=== PATIENT | female | born 1940 | race Caucasian/White ===

== ENCOUNTER 2017-11-29 06:30 | Emergency (ER) | payer OTHER ==
[2017-11-29 07:03] VITALS: BP 168/65; PULSE 75; TEMP 97.5; BMI 19.8
--- NOTE | 2017-11-29 07:10 | PDOC ---
History of Present Illness - General Chief Complaint: Bleeding from Anus Stated Complaint: RECTAL BLEEDING Time Seen by Provider: 11/29/17 07:04 - History of Present Illness Initial Comments: 11/29/17 07:10 Ms. Wells is a 77 yo female w/ pmh of HTN, HLD, and NIDDM who presents for evaluation of rectal bleeding. She reports she was previously in her normal state of health however last night had an episode of BRBPR upon defecating. She reports it was significant blood in the toilet bowel. She has previously had a single episode like this before as well. Ms. Wells had a colonoscopy that was normal 6-7 years ago. She also describes a 2 year history of right sided back pain that she follows under her PCP with. The patient denies chest pain, shortness of breath, headache and dizziness. Denies fever, chills, nausea, vomit, diarrhea and constipation. Denies dysuria, frequency, urgency and hematuria. Allergies: NKDA Past History - Past Medical History Allergies/Adverse Reactions: Allergies Allergy/AdvReac Type Severity Reaction Status Date / Time No Known Allergies Allergy Verified 11/29/17 07:03 Home Medications: Ambulatory Orders Glipizide Xl [Glucotrol Xl -] 10 mg PO DAILY 05/23/15 Rosuvastatin Calcium [Crestor] 10 mg PO DAILY 05/23/15 Clopidogrel Bisulfate [Plavix -] 75 mg PO DAILY #30 tablet 05/31/15 Lisinopril [Prinivil] 2.5 mg PO DAILY #30 tablet 05/31/15 Metoclopramide HCl 10 mg PO DAILY 11/29/17 Diabetes: Yes HTN: Yes Hypercholesterolemia: Yes Psychiatric Problems: Yes (ANXIETY) - Suicide/Smoking/Psychosocial Hx Smoking Status: Yes Smoking History: Never smoked Have you smoked in the past 12 months: No Number of Cigarettes Smoked Daily: 0 If you are a former smoker, when did you quit?: 1 year ago Information on smoking cessation initiated: No Hx Alcohol Use: No Drug/Substance Use Hx: No Substance Use Type: None Hx Substance Use Treatment: No Review of Systems - Review of Systems Comments:: 11/29/17 07:10 GENERAL/CONSTITUTIONAL: No fever or chills. No weakness. HEAD, EYES, EARS, NOSE AND THROAT: No change in vision. No ear pain or discharge. No sore throat. CARDIOVASCULAR: No chest pain or shortness of breath RESPIRATORY: No cough, wheezing, or hemoptysis. GASTROINTESTINAL: +Rectal bleeding as described. No nausea, vomiting, diarrhea or constipation. GENITOURINARY: No dysuria, frequency, or change in urination. MUSCULOSKELETAL: No joint or muscle swelling or pain. No neck or back pain. SKIN: No rash NEUROLOGIC: No headache, vertigo, loss of consciousness, or change in strength/ sensation. ENDOCRINE: No increased thirst. No abnormal weight change HEMATOLOGIC/LYMPHATIC: No anemia, easy bleeding, or history of blood clots. ALLERGIC/IMMUNOLOGIC: No hives or skin allergy. *Physical Exam - Vital Signs Last Vital Signs Temp Pulse Resp BP Pulse Ox 97.5 F L 75 19 168/65 100 11/29/17 07:00 11/29/17 07:00 11/29/17 07:00 11/29/17 07:00 11/29/17 07:00 - Physical Exam Comments: 11/29/17 07:10 GENERAL: Awake, alert, and fully oriented, in no acute distress HEAD: No signs of trauma, normocephalic, atraumatic EYES: PERRLA, EOMI, sclera anicteric, conjunctiva clear ENT: Auricles normal inspection, hearing grossly normal, nares patent, oropharynx clear without exudates. Moist mucosa NECK: Normal ROM, supple, no lymphadenopathy, JVD, or masses LUNGS: No distress, speaks full sentences, clear to auscultation bilaterally HEART: Regular rate and rhythm, normal S1 and S2, no murmurs, rubs or gallops, peripheral pulses normal and equal bilaterally. ABDOMEN: Soft, nontender, normoactive bowel sounds. No guarding, no rebound. No masses EXTREMITIES: Normal inspection, Normal range of motion, no edema. No clubbing or cyanosis. NEUROLOGICAL: Cranial nerves II through XII grossly intact. Normal speech, normal gait, no focal sensorimotor deficits SKIN: Warm, Dry, normal turgor, no rashes or lesions noted. RECTAL: Scant blood noted in rectal vault. ED Treatment Course - LABORATORY CBC & Chemistry Diagram: 11/29/17 07:28 11/29/17 07:28 Medical Decision Making - Medical Decision Making 11/29/17 10:09 Ms. Wells is a 77 yo female w/ pmh as described who presents for evaluation of BRBPR last night. Patient currently well appearing, exam significant for tenderness with rectal exam. Labs grossly unconcerning. Suspect fissure as etiology of symptoms. Patient given return precautions and will follow-up with PCP for further evaluation. Discharging to home. Laboratory Results - last 24 hr 11/29/17 11/29/17 11/29/17 07:20 07:28 07:28 WBC 13.8 H D RBC 4.52 D Hgb 12.1 D Hct 37.8 D MCV 83.7 MCH 26.8 MCHC 32.0 RDW 14.4 Plt Count 247 D MPV 8.3 Absolute Neuts (auto) 10.5 Neutrophils % 75.9 Lymphocytes % 14.3 D Monocytes % 7.7 Eosinophils % 1.4 Basophils % 0.7 Nucleated RBC % 0 Sodium 140 Potassium 4.7 Chloride 108 H Carbon Dioxide 21 Anion Gap 11 BUN 25 H Creatinine 1.0 Creat Clearance w eGFR 53.76 Random Glucose 210 H Calcium 9.1 Total Bilirubin 0.4 AST 15 ALT 21 Alkaline Phosphatase 96 Total Protein 7.0 Albumin 3.9 Urine Color Urine Appearance Urine pH Ur Specific Dell Urine Protein Urine Glucose (UA) Urine Ketones Urine Blood Urine Nitrite Urine Bilirubin Urine Urobilinogen Ur Leukocyte Esterase Urine WBC (Auto) Urine RBC (Auto) Ur Epithelial Cells Urine Mucus Stool Occult Blood Positive 11/29/17 07:41 WBC RBC Hgb Hct MCV MCH MCHC RDW Plt Count MPV Absolute Neuts (auto) Neutrophils % Lymphocytes % Monocytes % Eosinophils % Basophils % Nucleated RBC % Sodium Potassium Chloride Carbon Dioxide Anion Gap BUN Creatinine Creat Clearance w eGFR Random Glucose Calcium Total Bilirubin AST ALT Alkaline Phosphatase Total Protein Albumin Urine Color Ltyellow Urine Appearance Clear Urine pH 5.0 Ur Specific Dell 1.015 Urine Protein 2+ H Urine Glucose (UA) Negative Urine Ketones Negative Urine Blood Negative Urine Nitrite Negative Urine Bilirubin Negative Urine Urobilinogen Negative Ur Leukocyte Esterase Negative Urine WBC (Auto) 3 Urine RBC (Auto) 1 Ur Epithelial Cells Rare Urine Mucus Rare Stool Occult Blood *DC/Admit/Observation/Transfer Diagnosis at time of Disposition: Rectal bleeding - Discharge Dispostion Disposition: HOME Condition at time of disposition: Fair - Referrals Referrals: Leticia Fleming MD [Primary Care Provider] - - Patient Instructions Printed Discharge Instructions: DI for Rectal Bleeding Additional Instructions: Please follow-up with primary care physician for further evaluation. Return to ER if any continued bleeding, fever, chills, weakness, or other concerning symptoms. Print Language: JORDANIAN - Post Discharge Activity
[2017-11-29 08:00] LABS: URINE APPEARANCE CLEAR; URINE BILIRUBIN NEGATIVE (<2.0 mg/dL); URINE BLOOD NEGATIVE (NEGATIVE); URINE COLOR LTYELLOW; URINE GLUCOSE (UA) NEGATIVE (NEGATIVE); URINE KETONE NEGATIVE (NEGATIVE); URINE LEUK ESTERASE NEGATIVE (NEGATIVE); URINE NITRITE NEGATIVE (NEGATIVE); URINE PROTEIN 2+ (NEGATIVE); URINE UROBILINOGEN NEGATIVE mg/dL (0.2-1.0)
[2017-11-29 08:00] LABS: BASO % 0.7 % (0-2.0); EOS % 1.4 % (0-4.5); HEMATOCRIT 37.8 % (32.4-45.2); HEMOGLOBIN 12.1 GM/dL (10.7-15.3); LYMPH % 14.3 % (8-40); MCH 26.8 pg (25.7-33.7); MEAN CELL VOLUME 83.7 fl (80-96); MEAN PLT VOLUME 8.3 fl (7.5-11.1); MONO % 7.7 % (3.8-10.2); NEUT % 75.9 % (42.8-82.8); PLATELET COUNT 247 K/MM3 (134-434); RBC 4.52 M/mm3 (3.60-5.2); RDW 14.4 % (11.6-15.6); WHITE BLOOD COUNT 13.8 K/mm3 (4.0-10.0)
[2017-11-29 08:02] LABS: EPI CELLS RARE /HPF (FEW); URINE MUCUS RARE
--- NOTE | 2017-11-29 10:04 | PDOC ---
Attending Attestation - Resident Resident Name: Jesse Bowenorn - ED Attending Attestation I have performed the following: I have examined & evaluated the patient, The case was reviewed & discussed with the resident, I agree w/resident's findings & plan - HPI HPI: 11/29/17 10:00 77-year-old female presents with painless bright red blood per rectum with bowel movements for the last 2 or 3 days. Normal frequency of otherwise normal brown stool about 2-3 times per day. notes liquid blood in water and toilet paper, no abd pain or rectal pain. no h/o GI bleed, had normal c-scope about 7y ago. no f/c/light headedness - Physicial Exam PE: 11/29/17 10:02 Vital signs are within normal limits Well-appearing, no jaundice or pallor Abdomen is benign Rectal exam per resident, slight streaking on the glove with some discomfort during exam, no palpable masses, no visible fissures - Medical Decision Making 11/29/17 10:03 77y/o F with small amount brbpr with bowel movements for 2-3 days. HD stable, abd benign, exam unremarkable. Seems most consistent with hemorrhoid v. fissure , less consistent with diverticulosis. labs reassess, discuss with her GI
[2017-11-29 11:26] LABS: ALBUMIN 3.9 g/dl (3.4-5.0); ALK PHOS 96 U/L (45-117); ANION GAP 11 (8-16); BILIRUBIN,TOTAL 0.4 mg/dL (0.2-1.0); BLOOD UREA NITROGEN 25 mg/dL (7-18); CALCIUM 9.1 mg/dL (8.5-10.1); CHLORIDE 108 mmol/L (98-107); CO2 21 mmol/L (21-32); GLUCOSE,RANDOM 210 mg/dL (74-106); POTASSIUM 4.7 mmol/L (3.5-5.1); SGOT/AST 15 U/L (15-37); SGPT/ALT 21 U/L (12-78); SODIUM 140 mmol/L (136-145)
== END 2017-11-29 11:35 | disposition home or self-care (01) ==
LOC: JER 06:30
DX: K62.5 Hemorrhage of anus and rectum (principal); I10 Essential (primary) hypertension; E78.00 Pure hypercholesterolemia, unspecified; E11.9 Type 2 diabetes mellitus without complications; Z79.84 Long term (current) use of oral hypoglycemic drugs; F41.9 Anxiety disorder, unspecified
CPT/HCPCS: 36415; 80053; 81003; 81015; 82272; 85025; 87086; 99281-25

== ENCOUNTER 2019-03-04 15:34 | Inpatient (IN) | payer OTHER ==
[2019-03-04] MEDS ORDERED: traMADol HCL 50 MG TABLET PO ONE (17:55)
--- NOTE | 2019-03-04 18:03 | PDOC ---
History of Present Illness - General Chief Complaint: Pain, Acute Stated Complaint: RT FOOT PAIN Time Seen by Provider: 03/04/19 16:40 History Source: Patient - History of Present Illness Occurred: reports: other Severity: Yes: severe Lower Extremity Pain Location: right: leg Past History - Past Medical History Allergies/Adverse Reactions: Allergies Allergy/AdvReac Type Severity Reaction Status Date / Time No Known Allergies Allergy Verified 03/04/19 15:46 Home Medications: Ambulatory Orders Amlodipine Besylate [Norvasc -] 5 mg PO DAILY 08/10/18 Buspirone HCl [Buspar -] 5 mg PO BID 08/10/18 Linagliptin [Tradjenta] 5 mg PO DAILY 08/10/18 Mirtazapine [Remeron -] 1 tab PO DAILY 08/10/18 Gabapentin 100 mg PO DAILY 03/04/19 Gabapentin 300 mg PO HS 03/04/19 COPD: No Diabetes: Yes HTN: Yes Hypercholesterolemia: Yes Psychiatric Problems: Yes (ANXIETY) - Suicide/Smoking/Psychosocial Hx Smoking Status: Yes Smoking History: Never smoked Have you smoked in the past 12 months: Yes Number of Cigarettes Smoked Daily: 3 If you are a former smoker, when did you quit?: 1 year ago Hx Alcohol Use: No Drug/Substance Use Hx: No Substance Use Type: None Hx Substance Use Treatment: No Review of Systems - Review of Systems Constitutional: No: Chills, Fever Respiratory: No: Cough, Shortness of Breath Cardiac (ROS): No: Chest Pain, Palpitations ABD/GI: No: Nausea, Vomiting, Abdominal cramping : No: Dysuria Musculoskeletal: No: Joint Swelling Neurological: No: Numbness, Paresthesia, Tingling, Weakness *Physical Exam - Vital Signs Last Vital Signs Temp Pulse Resp BP Pulse Ox 97.4 F L 107 H 16 113/56 L 97 03/04/19 15:45 03/04/19 15:45 03/04/19 15:45 03/04/19 15:45 03/04/19 15:45 - Physical Exam General Appearance: Yes: Appropriately Dressed, Moderate Distress HEENT: positive: Normal Voice Neck: positive: Supple Respiratory/Chest: positive: Lungs Clear, Normal Breath Sounds. negative: Respiratory Distress Cardiovascular: positive: Regular Rate, S1, S2 Gastrointestinal/Abdominal: positive: Soft. negative: Tender Extremity: positive: Other (diffuse ttp tp RLE w/ cold ankle/foot, unable to palpate pedal pulses b/l, no erythema or wounds) Integumentary: positive: Dry, Warm Neurologic: positive: Fully Oriented, Alert, Normal Mood/Affect, Motor Strength 10/29 ED Treatment Course - LABORATORY CBC & Chemistry Diagram: 03/06/19 06:50 03/06/19 06:50 - RADIOLOGY Radiology Studies Ordered: Category Date Time Status DUPLEX ART. LOWER COMPL US [US] Stat Ultrasound 03/04/19 17:54 Ordered DUPLEX VASCUL US-1 LEG [US] Stat Ultrasound 03/04/19 17:54 Ordered Medical Decision Making - Medical Decision Making 03/04/19 17:56 78 yo F, h/o DM, HTN, here w/ severe pain to RLE x 3 days. Pain possibly worse w / bearing weight and better w/ rest. No h/o similar pain. No trauma. No CP, SOB or palpitations. Marsies f/c. Was seen at [facility] on Tuesday and states blood work abd CT of her abd was done and negative. I contacted PA in ED at [facility] and confirmed that pt had p/w R flank/abd/RLE pain. Labs and CT a/p was negative. No arterial imaging/doppler RLE was performed. See exam RLE claudication Cold R foot/ankle compared to LLE and unable to palpate b/l pedal pulses -pain control -labs -US arterial/vasc -?CTA w/ runoffs -dispo pending Pt signed out to ED resident pending w/u 03/04/19 19:06 Per radiology, US doppler done, pt unable to pooja arterial doppler 2/2 pain. Will send back to ED for pain control prior to study *DC/Admit/Observation/Transfer Diagnosis at time of Disposition: Right leg claudication, Leg pain - Referrals - Patient Instructions - Post Discharge Activity
[2019-03-04] MEDS ORDERED: morphine CARPU-JECT 4 MG/1 ML DISP.SYRIN IVPUSH ONE (19:07)
[2019-03-04 19:28] LABS: BASO % 0.4 % (0-2.0); EOS % 0.8 % (0-4.5); HEMATOCRIT 38.1 % (32.4-45.2); LYMPH % 22.6 % (8-40); MCH 25.6 pg (25.7-33.7); MCHC 31.4 g/dl (32.0-36.0); MEAN CELL VOLUME 81.7 fl (80-96); MEAN PLT VOLUME 8.1 fl (7.5-11.1); MONO % 8.3 % (3.8-10.2); NEUT % 67.9 % (42.8-82.8); PLATELET COUNT 254 K/MM3 (134-434); RBC 4.67 M/mm3 (3.60-5.2); RDW 15.4 % (11.6-15.6); WHITE BLOOD COUNT 11.3 K/mm3 (4.0-10.0)
[2019-03-04 19:39] LABS: INR 1.08 (0.83-1.09); PROTHROMBIN TIME (PATIENT) 12.7 SEC (9.7-13.0)
--- NOTE | 2019-03-04 19:52 | PDOC ---
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 Per the patient, it was sudden in onset, located on the right calf, associated with cold sensation, and worsens with ambulation. Last meal was at 1:30 pm and currently does not take anticoagulation or aspirin. Per the patient, she denies the following: fever, chills, SOB, chest pain, abdominal pain, dysuria, hematuria, diarrhea, and hematochezia. No trauma. Allergies: NKDA Social: Tobacco smoker. Past History - Past Medical History Allergies/Adverse Reactions: Allergies Allergy/AdvReac Type Severity Reaction Status Date / Time No Known Allergies Allergy Verified 03/04/19 15:46 Home Medications: Ambulatory Orders Amlodipine Besylate [Norvasc -] 5 mg PO DAILY 08/10/18 Buspirone HCl [Buspar -] 5 mg PO BID 08/10/18 Linagliptin [Tradjenta] 5 mg PO DAILY 08/10/18 Mirtazapine [Remeron -] 1 tab PO DAILY 08/10/18 Gabapentin 100 mg PO DAILY 03/04/19 Gabapentin 300 mg PO HS 03/04/19 COPD: No Diabetes: Yes HTN: Yes Hypercholesterolemia: Yes Psychiatric Problems: Yes (ANXIETY) - Suicide/Smoking/Psychosocial Hx Smoking Status: Yes Smoking History: Never smoked Have you smoked in the past 12 months: Yes Number of Cigarettes Smoked Daily: 3 If you are a former smoker, when did you quit?: 1 year ago Hx Alcohol Use: No Drug/Substance Use Hx: No Substance Use Type: None Hx Substance Use Treatment: No Review of Systems - Review of Systems Able to Perform ROS?: Yes Is the patient limited Citizen [place] proficient: No Constitutional: No: Chills, Diaphoresis, Fever, Weakness HEENTM: No: Eye Pain, Ear Pain, Nose Pain, Throat Pain, Mouth Pain Respiratory: No: Cough, Shortness of Breath, Hemoptysis Cardiac (ROS): No: Chest Pain, Lightheadedness, Palpitations, Syncope ABD/GI: No: Abdominal Distended, Constipated, Diarrhea, Nausea, Rectal Bleeding , Vomiting, Tarry Stools : No: Burning, Dysuria, Hematuria, Incontinence Musculoskeletal: Yes: Muscle Pain (right calf muscle). No: Back Pain, Joint Pain Integumentary: Yes: Pallor (right lower leg). No: Bruising Neurological: No: Headache, Numbness, Tingling, Tremors Psychiatric: No: Change in Appetite Endocrine: No: Unexplained Weight Loss Hematologic/Lymphatic: No: Anemia *Physical Exam - Vital Signs Last Vital Signs Temp Pulse Resp BP Pulse Ox 97.4 F L 107 H 16 113/56 L 97 03/04/19 15:45 03/04/19 15:45 03/04/19 15:45 03/04/19 15:45 03/04/19 15:45 - Physical Exam General Appearance: Yes: Nourished, Appropriately Dressed, Thin. No: Apparent Distress, Alcohol on Breath, Intoxicated HEENT: positive: EOMI, MUNIRA, Normal Voice, Symmetrical, Pharynx Normal, Hearing Grossly Normal. negative: Pale Conjunctivae, Scleral Icterus (R), Scleral Icterus (L), Muffled/Hoarse voice, Pharyngeal Erythema, Tonsillar Exudate, Tonsillar Erythema, Nasal Congestion, Rhinorrhea, Excessive drooling Neck: positive: Trachea midline, Supple. negative: Tender, Lymphadenopathy (R) , Lymphadenopathy (L), Tender lateral, Tender midline Respiratory/Chest: positive: Lungs Clear, Normal Breath Sounds. negative: Chest Tender, Respiratory Distress, Accessory Muscle Use Cardiovascular: positive: Regular Rhythm, S1, S2, Tachycardia. negative: Systolic Murmur Gastrointestinal/Abdominal: positive: Normal Bowel Sounds, Flat, Soft. negative : Tender Lymphatic: negative: Adenopathy Musculoskeletal: positive: Normal Inspection. negative: CVA Tenderness, Vertebral Tenderness Extremity: positive: Tender (calf tenderness right ), Coldness (right lower leg distal from the calf). negative: Normal Capillary Refill (delayed capillary refill on the right foot), Normal Inspection (pallor noted on the right lower leg), Pedal Edema, Swelling Integumentary: positive: Normal Color, Dry, Warm Neurologic: positive: media reporter II-XII NML intact, Fully Oriented, Alert, Normal Mood/ Affect, Normal Response, Motor Strength 5/5. negative: EOM Palsy, Facial Droop ED Treatment Course - LABORATORY CBC & Chemistry Diagram: 03/04/19 19:15 03/04/19 19:15 - ADDITIONAL ORDERS Additional order review: Laboratory Results 03/04/19 19:15 PT with INR 12.70 INR 1.08 03/04/19 19:15 RBC 4.67 MCV 81.7 MCHC 31.4 L RDW 15.4 MPV 8.1 Neutrophils % 67.9 Lymphocytes % 22.6 D Monocytes % 8.3 Eosinophils % 0.8 Basophils % 0.4 - RADIOLOGY Radiology Studies Ordered: Category Date Time Status DUPLEX ART. LOWER COMPL US [US] Stat Ultrasound 03/04/19 18:35 Taken DUPLEX ART. 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 Initial vitals: Initial Vital Signs Temp Pulse Resp BP Pulse Ox 97.4 F L 107 H 16 113/56 L 97 03/04/19 15:45 03/04/19 15:45 03/04/19 15:45 03/04/19 15:45 03/04/19 15:45 Work up: patient presents to the emergency department with extensive vasculopathy in the past. concerns exist for arterial thrombus. Laboratory Tests 03/04/19 03/04/19 03/04/19 19:15 19:15 19:15 WBC 11.3 H RBC 4.67 Hgb 12.0 Hct 38.1 MCV 81.7 MCH 25.6 L MCHC 31.4 L RDW 15.4 Plt Count 254 MPV 8.1 Absolute Neuts (auto) 7.7 Neutrophils % 67.9 Lymphocytes % 22.6 D Monocytes % 8.3 Eosinophils % 0.8 Basophils % 0.4 Nucleated RBC % 0 PT with INR 12.70 INR 1.08 Sodium 141 Potassium 4.5 Chloride 107 Carbon Dioxide 28 Anion Gap 6 L BUN 25.4 H Creatinine 1.6 H Est GFR (CKD-EPI)AfAm 35.40 Est GFR (CKD-EPI)NonAf 30.55 Random Glucose 381 H Calcium 8.7 Total Bilirubin 0.1 L AST 14 L ALT 14 Alkaline Phosphatase 103 Total Protein 6.7 Albumin 3.3 L Blood Type Antibody Screen 03/04/19 19:15 WBC RBC Hgb Hct MCV MCH MCHC RDW Plt Count MPV Absolute Neuts (auto) Neutrophils % Lymphocytes % Monocytes % Eosinophils % Basophils % Nucleated RBC % PT with INR INR Sodium Potassium Chloride Carbon Dioxide Anion Gap BUN Creatinine Est GFR (CKD-EPI)AfAm Est GFR (CKD-EPI)NonAf Random Glucose Calcium Total Bilirubin AST ALT Alkaline Phosphatase Total Protein Albumin Blood Type O POSITIVE Antibody Screen Negative Patient's US duplex arterial shows monophasic limited flow at proximal and mid portions of the femoral graft. 03/04/19 19:[address] Hernandez. Will give heparin and will have CTA of the lower extremity and aorta run off in the morning. Due to patient's elevated creatinine, will need to hydrate overnight and recheck in the morning. 03/04/19 21:57 Dispo: Admit. Patient was admitted to [facility] [facility] production operations [employer] for [employer]. *DC/Admit/Observation/Transfer Diagnosis at time of Disposition: Leg pain - Referrals - Patient Instructions - Post Discharge Activity
[2019-03-04 19:55] LABS: ALBUMIN 3.3 g/dl (3.4-5.0); BILIRUBIN,TOTAL 0.1 mg/dL (0.2-1); BLOOD UREA NITROGEN 25.4 mg/dL (7-18); CALCIUM 8.7 mg/dL (8.5-10.1); CREATININE 1.6 mg/dL (0.55-1.3); POTASSIUM 4.5 mmol/L (3.5-5.1); TOT PROT 6.7 g/dl (6.4-8.2)
[2019-03-04] MEDS ORDERED: MORPHINE SULFATE 2 MG/ML VIAL ONE (19:56)
[2019-03-04] MEDS ORDERED: SODIUM CHLORIDE 1,000 ML IV STA (20:28)
[2019-03-04] MEDS ORDERED: HEPARIN NA (PORCINE) 5,000 UNITS/ML 1ML VIAL IVPUSH ONE (20:29)
--- NOTE | 2019-03-04 20:45 | PDOC ---
*Physical Exam - Vital Signs Last Vital Signs Temp Pulse Resp BP Pulse Ox 97.4 F L 107 H 16 113/56 L 97 03/04/19 15:45 03/04/19 15:45 03/04/19 15:45 03/04/19 15:45 03/04/19 15:45 ED Treatment Course - LABORATORY CBC & Chemistry Diagram: 03/04/19 19:15 03/04/19 19:15 - ADDITIONAL ORDERS Additional order review: Laboratory Results 03/04/19 03/04/19 03/04/19 19:15 19:15 19:15 PT with INR 12.70 INR 1.08 Sodium 141 Potassium 4.5 Chloride 107 Carbon Dioxide 28 Anion Gap 6 L BUN 25.4 H Creatinine 1.6 H Est GFR (CKD-EPI)AfAm 35.40 Est GFR (CKD-EPI)NonAf 30.55 Random Glucose 381 H Calcium 8.7 Total Bilirubin 0.1 L AST 14 L ALT 14 Alkaline Phosphatase 103 Total Protein 6.7 Albumin 3.3 L Blood Type O POSITIVE Antibody Screen Negative 03/04/19 19:15 RBC 4.67 MCV 81.7 MCHC 31.4 L RDW 15.4 MPV 8.1 Neutrophils % 67.9 Lymphocytes % 22.6 D Monocytes % 8.3 Eosinophils % 0.8 Basophils % 0.4 - Medications Given in the ED: ED Medications Discontinued Medications Generic Name Dose Route Start Last Admin Trade Name Odinq PRN Reason Stop Dose Admin Morphine Sulfate 2 mg 03/04/19 19:07 03/04/19 20:11 Morphine Injection - IVPUSH 03/04/19 19:08 2 mg ONCE ONE Administration Tramadol HCl 50 mg 03/04/19 17:55 03/04/19 19:54 Ultram - PO 03/04/19 17:56 Not Given ONCE ONE Medical Decision Making - Medical Decision Making 03/04/19 20:33 this 78 female states that since Tuesday she her rt foot /leg has been painful and cold to touch she has prior h/o SFA occlusion and had stent placement in the past (2014) doreen 's arterial doppler shows arterial flow is seen in the right [employer]. HOWEVER There is monophasic limited flow at the proximal and mid portions of the femoral graft case discussed w Dr Olamide Hernandez and the pt will be admitted 03/04/19 20:47 09/08/19 21:45 her creatinine is 1.6, and her GFR is 30.55 and she is currently being hydrated w IVF. Dr Hernandez states the pt can be hydrated and have repeat chemistries done in the morning. He states that her imaging studies can be done tomorrow *DC/Admit/Observation/Transfer Diagnosis at time of Disposition: Right leg claudication - Referrals - Patient Instructions - Post Discharge Activity
[2019-03-04] MEDS ORDERED: HEPARIN NA (PORCINE) 5,000 UNITS/ML 1ML VIAL ONE (21:14)
[2019-03-04] MEDS ORDERED: HEPARIN INFUSION - 25,000 UNITS/500 ML INFUS.BAG IVPB ONE (21:15)
[2019-03-04] MEDS: HEPARIN - 25,000 UNIT in SODIUM CHLORIDE 495 ML IV SCH (21:26)
[2019-03-04] MEDS ORDERED: ACETAMINOPHEN 325 MG TABLET (FP) PO PRN (23:35)
[2019-03-04] MEDS ORDERED: traMADol HCL 50 MG TABLET PO PRN (23:40)
--- NOTE | 2019-03-04 23:46 | HP ---
CHIEF COMPLAINT: Right foot Pain, cold to touch PCP: Dr. Valdivia HISTORY OF PRESENT ILLNESS: 78 year old female with PMHX of DM, HTN and SFA stent placement due to 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 No prior history of similar symptoms. Patient denies acute trauma or injury. Patient denies taking any anticoagulation, ASA. Patient denies CP, SOB or palpitations, fever. Patient was seen at [facility] on Tuesday and states blood work,abd CT of her abd was done which were negative. ER course was notable for: Arterial Doppler: shows arterial flow is seen in the right [employer], monophasic limited flow at the proximal and mid portions of the femoral graft ED discuss with Dr. Hernandez hydrate patient, monitor Cr trend, if normalized order CTA in Am In ED: Given 1 L NS, Heparin 5000 units x1, Morphine 2 mg, Tramadol 50 mg po X1 Recent Travel: no PAST MEDICAL HISTORY: HTN, HLD, DM, Anxiety PAST SURGICAL HISTORY: h/o of SFA occlusion has stent placement in past 2014 Social History: Smoking:no Alcohol:no Drugs: no Family History: Sister (DM) Allergies: No Known Allergies Allergy (Verified 03/04/19 15:46) HOME MEDICATIONS: Home Medications Medication Instructions Recorded Amlodipine Besylate [Norvasc -] 5 mg PO DAILY 08/10/18 Buspirone HCl [Buspar -] 5 mg PO BID 08/10/18 Linagliptin [Tradjenta] 5 mg PO DAILY 08/10/18 Mirtazapine [Remeron -] 1 tab PO DAILY 08/10/18 REVIEW OF SYSTEMS CONSTITUTIONAL: Absent: fever, chills, diaphoresis, generalized weakness, malaise HEENT: Absent: rhinorrhea, nasal congestion, throat swelling, difficulty swallowing, ear pain, eye pain, visual changes CARDIOVASCULAR: Absent: chest pain, syncope, palpitations, peripheral edema RESPIRATORY: Absent: cough, shortness of breath, dyspnea with exertion, wheezing GASTROINTESTINAL:Absent: abdominal pain, abdominal distension, nausea, vomiting , diarrhea, constipation GENITOURINARY: Absent: dysuria, frequency, urgency,hematuria MUSCULOSKELETAL: Absent: myalgia, joint swelling, back pain, neck pain EXtremity: RLE cool to touch, pain with ambulation, no erythema SKIN: Absent: rash, itching HEMATOLOGIC/IMMUNOLOGIC: Absent: easy bleeding, easy bruising, lymphadenopathy ENDOCRINE:Absent: unexplained weight gain, unexplained weight loss NEUROLOGIC: Absent: headache, dizziness, unsteady gait, seizure, bladder or bowel incontinence PSYCHIATRIC: Absent: depression, suicidal or homicidal ideation, hallucinations. PHYSICAL EXAMINATION Vital Signs - 24 hr 03/04/19 15:45 Temperature 97.4 F L Pulse Rate 107 H Respiratory 16 Rate Blood Pressure 113/56 L O2 Sat by Pulse 97 Oximetry (%) GENERAL: Awake, alert, and fully oriented, in no acute distress. HEENT: NC/AT, EOMI, PERRLA, No JVD LUNGS: Breath sounds equal, clear to auscultation bilaterally. No wheezes, and no crackles. HEART: normal S1 and S2 without murmur, rub or gallop. ABDOMEN: Soft, nontender, not distended, normoactive bowel sounds, no guarding, no rebound, no masses. MUSCULOSKELETAL: Normal range of motion at all joints. No bony deformities or tenderness. No CVA tenderness. Extremity: RLE cold to touch, absent pedal pulse, NEUROLOGICAL: Cranial nerves II-XII intact. Normal speech. PSYCHIATRIC: Cooperative. Good eye contact. Appropriate mood and affect. SKIN: Warm, dry Laboratory Results - last 24 hr 03/04/19 03/04/19 03/04/19 19:15 19:15 19:15 WBC 11.3 H RBC 4.67 Hgb 12.0 Hct 38.1 MCV 81.7 MCH 25.6 L MCHC 31.4 L RDW 15.4 Plt Count 254 MPV 8.1 Absolute Neuts (auto) 7.7 Neutrophils % 67.9 Lymphocytes % 22.6 D Monocytes % 8.3 Eosinophils % 0.8 Basophils % 0.4 Nucleated RBC % 0 PT with INR 12.70 INR 1.08 Sodium 141 Potassium 4.5 Chloride 107 Carbon Dioxide 28 Anion Gap 6 L BUN 25.4 H Creatinine 1.6 H Est GFR (CKD-EPI)AfAm 35.40 Est GFR (CKD-EPI)NonAf 30.55 Random Glucose 381 H Calcium 8.7 Total Bilirubin 0.1 L AST 14 L ALT 14 Alkaline Phosphatase 103 Total Protein 6.7 Albumin 3.3 L Blood Type Antibody Screen 03/04/19 19:15 WBC RBC Hgb Hct MCV MCH MCHC RDW Plt Count MPV Absolute Neuts (auto) Neutrophils % Lymphocytes % Monocytes % Eosinophils % Basophils % Nucleated RBC % PT with INR INR Sodium Potassium Chloride Carbon Dioxide Anion Gap BUN Creatinine Est GFR (CKD-EPI)AfAm Est GFR (CKD-EPI)NonAf Random Glucose Calcium Total Bilirubin AST ALT Alkaline Phosphatase Total Protein Albumin Blood Type O POSITIVE Antibody Screen Negative ASSESSMENT/PLAN: 78 year old female with PMHX of HTN, HLD, DM, and SFA stent placement due to 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 ? RLE DVT, Claudication RLE Pain Arterial Doppler: Biphasic arterial flow is seen at right [employer]. Monophasic limited flow at proximal and mid portions of femoral graft ED discuss with Dr. David rivas patient, monitor Cr trend, if normalized order CTA in Am In ED: Given 1 L NS, Heparin 5000 units x1, Morphine 2 mg, Tramadol 50 mg po X1 - Started Heparin drip - monitor PTT - Pain management - Cr: 1.6, continue to hydrate follow up BMP in AM #HTN - continue with Norvasc 5mg PO daily #DM - monitor FSBS - coverage with Novolog sliding scale # Anxiety - Continue with Buspirone HCl 5 mg PO BID - Continue with Mirtazapine PO DAILY - Monitor for acute behavioral issues Problem List - Problem (1) Right calf pain Code(s): M79.661 - PAIN IN RIGHT LOWER LEG (2) Right leg claudication Code(s): I73.9 - PERIPHERAL VASCULAR DISEASE, UNSPECIFIED (3) Anxiety Code(s): F41.9 - ANXIETY DISORDER, UNSPECIFIED (4) Hypertension Code(s): I10 - ESSENTIAL (PRIMARY) HYPERTENSION Qualifiers: Hypertension type: essential hypertension Qualified Code(s): I10 - Essential (primary) hypertension (5) Type 2 diabetes mellitus Code(s): E11.9 - TYPE 2 DIABETES MELLITUS WITHOUT COMPLICATIONS Qualifiers: Diabetes mellitus complication status: with skin complications Diabetes mellitus complication detail: with foot ulcer Qualified Code(s): E11.621 - Type 2 diabetes mellitus with foot ulcer Visit type - Emergency Visit Emergency Visit: Yes ED Registration Date: 03/04/19 Care time: The patient presented to the Emergency Department on the above date and was hospitalized for further evaluation of their emergent condition. - New Patient This patient is new to me today: Yes Date on this admission: 03/04/19 - Critical Care Critical Care patient: No
[2019-03-05] MEDS: SODIUM CHLORIDE 1,000 ML IV SCH ×2 (00:01→22:40)
[2019-03-05 05:44] LABS: EPI CELLS 3.7 /HPF (0-5/HPF); HYALINE CASTS 1 /lpf (0-8); URINE APPEARANCE CLEAR; URINE BACTERIA 4.6 /hpf (NEGATIVE); URINE BILIRUBIN NEGATIVE (NEGATIVE); URINE COLOR YELLOW; URINE GLUCOSE (UA) 1+ (NEGATIVE); URINE KETONE NEGATIVE (NEGATIVE); URINE LEUK ESTERASE TRACE (NEGATIVE); URINE NITRITE NEGATIVE (NEGATIVE); URINE PROTEIN 2+ (NEGATIVE); URINE RBC 1 /hpf (0-4); URINE UROBILINOGEN 0.2 mg/dL (0.2-1.0); URINE WBC 8 /hpf (0-5)
[2019-03-05] MEDS: INSULIN SLIDING SCALE (NOVOLOG) 1 VIAL SQ SCH ×2 (06:41→17:12)
[2019-03-05 07:13] LABS: HEMATOCRIT 36.3 % (32.4-45.2); HEMOGLOBIN 11.5 GM/dL (10.7-15.3); MCH 25.7 pg (25.7-33.7); MCHC 31.6 g/dl (32.0-36.0); MEAN CELL VOLUME 81.4 fl (80-96); MEAN PLT VOLUME 8.5 fl (7.5-11.1); PLATELET COUNT 242 K/MM3 (134-434); RBC 4.46 M/mm3 (3.60-5.2); RDW 15.9 % (11.6-15.6); WHITE BLOOD COUNT 9.7 K/mm3 (4.0-10.0)
[2019-03-05 07:26] LABS: BLOOD UREA NITROGEN 15.4 mg/dL (7-18); CALCIUM 8.2 mg/dL (8.5-10.1); CREATININE 0.9 mg/dL (0.55-1.3)
[2019-03-05] MEDS ORDERED: amLODIPine BESYLATE 5 MG TABLET (FP) ONE (08:07)
[2019-03-05] MEDS ORDERED: busPIRone HCL 5 MG TABLET ONE (08:08)
[2019-03-05] MEDS: HEPARIN - 25,000 UNIT in SODIUM CHLORIDE 495 ML IV SCH ×3 (08:15→20:30)
[2019-03-05] MEDS: busPIRone HCL 5 MG TABLET PO SCH ×2 (09:10→22:40)
[2019-03-05] MEDS ORDERED: amLODIPine BESYLATE 5 MG TABLET (FP) PO SCH (10:00)
--- NOTE | 2019-03-05 11:28 | EKG ---
Test Reason : Blood Pressure : / mmHG Vent. Rate : 090 BPM Atrial Rate : 090 BPM P-R Int : 088 ms QRS Dur : 066 ms QT Int : 346 ms P-R-T Axes : 000 039 -87 degrees QTc Int : 423 ms SINUS RHYTHM WITH SHORT W[place] ABNORMAL ECG WHEN COMPARED WITH ECG OF 29-MAY-2015 00:31, PREMATURE ATRIAL COMPLEXES ARE NO LONGER PRESENT T WAVE VARIATION Confirmed by ROSAMARIA CUEVAS, KARLA ([id number]) on 03/05/2019 11:27:41 AM Referred By: Confirmed By:KARLA BLANK MD
--- NOTE | 2019-03-05 11:43 | PN ---
Progress Note, Physician Chief Complaint: patient seen and examined in Er complaining of pain in right foot and leg - Current Medication List Current Medications: Active Medications Acetaminophen (Tylenol -) 650 mg PO Q4H PRN PRN Reason: PAIN OR FEVER Amlodipine Besylate (Norvasc -) 5 mg PO DAILY [facility] Last Admin: 03/05/19 09:10 Dose: 5 mg Buspirone HCl (Buspar -) 5 mg PO BID [facility] Last Admin: 03/05/19 09:10 Dose: 5 mg Gabapentin (Neurontin -) 300 mg PO HS [facility] Heparin Sodium (Porcine) 25, (000 unit/ Sodium Chloride) 500 mls @ 16 mls/hr IV TITR [facility]; Protocol Last Admin: 03/05/19 08:15 Dose: 700 unit/hr, 14 mls/hr Sodium Chloride (Normal Saline -) 1,000 mls @ 75 mls/hr IV ASDIR [facility] Last Admin: 03/05/19 00:01 Dose: 75 mls/hr Insulin Aspart (Novolog Vial Sliding Scale -) 1 vial SQ BIDAC [facility]; Protocol Last Admin: 03/05/19 06:41 Dose: Not Given Mirtazapine (Remeron -) 15 mg PO HS [facility] Tramadol HCl (Ultram -) 50 mg PO Q6H PRN PRN Reason: PAIN LEVEL 6-10 - Objective Vital Signs: Vital Signs Temperature 97.7 F 03/05/19 09:58 Pulse Rate 82 03/05/19 09:58 Respiratory Rate 20 03/05/19 04:30 Blood Pressure 141/78 03/05/19 09:58 O2 Sat by Pulse Oximetry (%) 94 L 03/05/19 09:58 Constitutional: Yes: Calm, Thin Cardiovascular: Yes: Regular Rate and Rhythm, S1, S2 Respiratory: Yes: CTA Bilaterally Gastrointestinal: Yes: Normal Bowel Sounds, Soft Extremities: Yes: Cold Edema: No Neurological: Yes: Alert, Oriented Labs: CBC, BMP 03/05/19 06:00 03/05/19 06:00 INR, PTT INR 1.08 (0.83-1.09) 03/04/19 19:15 Problem List - Problems (1) Acute pain of right lower extremity Assessment/Plan: CTA done awaiting results vascular surgeon consult pending heparin drip runing Code(s): M79.604 - PAIN IN RIGHT LEG (2) Hypertension Assessment/Plan: [facility] Code(s): I10 - ESSENTIAL (PRIMARY) HYPERTENSION Qualifiers: Hypertension type: essential hypertension Qualified Code(s): I10 - Essential (primary) hypertension
--- NOTE | 2019-03-05 13:58 | PN ---
Progress Note (short form) - Note Progress Note: Vascular Surgery Pt seen and examined. Last seen in 2014. Never followed up again. pt continues to smoke. Pt has right SFA stent. Came in for pain in right leg since tuesday. CTA done today shows that the sfa stent is occluded. Probably due to the continued smoking. Pt has motor and sensory intact in the right leg. Will do angioplasty ramandeep. Medical and cardiology clearance.
--- NOTE | 2019-03-05 14:00 | PN ---
Progress Note (short form) - Note Progress Note: will get cardiology clearance for angioplasty tmw NPO after midnight tonight Problem List - Problems (1) Acute pain of right lower extremity Code(s): M79.604 - PAIN IN RIGHT LEG (2) Hypertension Code(s): I10 - ESSENTIAL (PRIMARY) HYPERTENSION Qualifiers: Hypertension type: essential hypertension Qualified Code(s): I10 - Essential (primary) hypertension
--- NOTE | 2019-03-05 14:18 | CON.CARD ---
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 No prior history of similar symptoms. Patient denies acute trauma or injury. Patient denies taking any anticoagulation, ASA. Patient denies CP, SOB or palpitations, fever. Arterial Doppler: shows arterial flow is seen in the right [employer], monophasic limited flow at the proximal and mid portions of the femoral graft CTA: occluded SFA stent. Nuclear Stress Test 04/04/18: normal perfusion. - History Source History Provided By: Patient, Medical Record - Past Medical History Cardio/Vascular: Yes: HTN, Hyperlipdemia Gastrointestinal: Yes: GERD Endocrine: Yes: Diabetes Mellitus - Alcohol/Substance Use Hx Alcohol Use: No History of Substance Use: reports: None - Smoking History Smoking history: Never smoked Have you smoked in the past 12 months: Yes Aproximately how many cigarettes per day: 3 If you are a former smoker, when did you quit?: 1 year ago - Social History ADL: Independent History of Recent Travel: No Home Medications - Allergies Allergies/Adverse Reactions: Allergies Allergy/AdvReac Type Severity Reaction Status Date / Time No Known Allergies Allergy Verified 03/04/19 15:46 - Home Medications Home Medications: Ambulatory Orders Amlodipine Besylate [Norvasc -] 5 mg PO DAILY 08/10/18 Buspirone HCl [Buspar -] 5 mg PO BID 08/10/18 Linagliptin [Tradjenta] 5 mg PO DAILY 08/10/18 Mirtazapine [Remeron -] 1 tab PO DAILY 08/10/18 Gabapentin 100 mg PO DAILY 03/04/19 Gabapentin 300 mg PO HS 03/04/19 Review of Systems - Review of Systems Constitutional: reports: No Symptoms Eyes: reports: No Symptoms HENT: reports: No Symptoms Neck: reports: No Symptoms Cardiovascular: reports: No Symptoms Respiratory: reports: No Symptoms Gastrointestinal: reports: No Symptoms Genitourinary: reports: No Symptoms Vital Signs: Vital Signs Temperature 97.7 F 03/05/19 09:58 Pulse Rate 82 03/05/19 09:58 Respiratory Rate 20 03/05/19 04:30 Blood Pressure 141/78 03/05/19 09:58 O2 Sat by Pulse Oximetry (%) 94 L 03/05/19 09:58 Constitutional: Yes: No Distress, Calm Eyes: Yes: Conjunctiva Clear, EOM Intact HENT: Yes: Atraumatic, Normocephalic Neck: Yes: Trachea Midline Respiratory: Yes: Regular, CTA Bilaterally Gastrointestinal: Yes: Normal Bowel Sounds, Soft Cardiovascular: Yes: Regular Rate and Rhythm JVD: No Carotid Bruit: No PMI: Non-Displaced Heart Sounds: Yes: S1, S2 Edema: No Peripheral Pulses WNL: No Peripheral Pulses: 1+ Right Femoral, 3+ Left Femoral - Other Data Labs, Other Data: CBC, BMP 03/05/19 06:00 03/05/19 06:00 INR, PTT INR 1.08 (0.83-1.09) 03/04/19 19:15 Imaging - Results EKG: Report Reviewed (nsr short pr, nssttw changes) Assessment/Plan 78 year old female with PMHX of DM, HTN and SFA stent placement due to 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 No prior history of similar symptoms. Patient denies acute trauma or injury. Patient denies taking any anticoagulation, ASA. Patient denies CP, SOB or palpitations, fever. Arterial Doppler: shows arterial flow is seen in the right [employer], monophasic limited flow at the proximal and mid portions of the femoral graft CTA: occluded SFA stent. Nuclear Stress Test 04/04/18: normal perfusion There are no cardiac contraindications to surgery. She is at low risk of perioperative cardiac events. Will follow as needed postop.
--- NOTE | 2019-03-05 14:27 | SPA.PREOP ---
- PRE-OP NOTE Dx: Occluded RLE SFA stent Planned Procedure: Angio, possible plasty and any other indicated procedures Surgeon: Preet Hernandez Last Vital Signs Temp Pulse Resp BP Pulse Ox 97.7 F 82 20 141/78 94 L 03/05/19 09:58 03/05/19 09:58 03/05/19 04:30 03/05/19 09:58 03/05/19 09:58 Lab Results WBC 9.7 K/mm3 (4.0-10.0) 03/05/19 06:00 RBC 4.46 M/mm3 (3.60-5.2) 03/05/19 06:00 Hgb 11.5 GM/dL (10.7-15.3) 03/05/19 06:00 Hct 36.3 % (32.4-45.2) 03/05/19 06:00 MCV 81.4 fl (80-96) 03/05/19 06:00 MCHC 31.6 g/dl (32.0-36.0) L 03/05/19 06:00 RDW 15.9 % (11.6-15.6) H 03/05/19 06:00 Plt Count 242 K/MM3 (134-434) 03/05/19 06:00 Sodium 145 mmol/L (136-145) 03/05/19 06:00 Potassium 4.0 mmol/L (3.5-5.1) 03/05/19 06:00 Chloride 111 mmol/L (98-107) H 03/05/19 06:00 Carbon Dioxide 25 mmol/L (21-32) 03/05/19 06:00 Anion Gap 9 MMOL/L (8-16) 03/05/19 06:00 BUN 15.4 mg/dL (7-18) 03/05/19 06:00 Creatinine 0.9 mg/dL (0.55-1.3) 03/05/19 06:00 Random Glucose 188 mg/dL (74-106) H 03/05/19 06:00 Calcium 8.2 mg/dL (8.5-10.1) L 03/05/19 06:00 Blood Type O POSITIVE 03/05/19 06:35 Antibody Screen Negative 03/04/19 19:15 INR 1.08 (0.83-1.09) 03/04/19 19:15 - IMAGING Cat Scan: Report Reviewed - ASSESSMENT/PLAN 1. NPO after midnight except po meds 2. GI/DVT PPX 3. Medical optimization / clearance 4. Cardio Clearance 5. BP controlled 6. Tight glycemic control 7. Consent to be obtained by surgeon after risks, benefits and alternatives discussed with patient and or Health Care Proxy. 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 Code(s): E11.22 - TYPE 2 DIABETES MELLITUS W DIABETIC CHRONIC KIDNEY DISEASE; N18.3 - CHRONIC KIDNEY DISEASE, STAGE 3 (MODERATE) (3) Hypertension Code(s): I10 - ESSENTIAL (PRIMARY) HYPERTENSION Qualifiers: Hypertension type: essential hypertension Qualified Code(s): I10 - Essential (primary) hypertension (4) Type 2 diabetes mellitus Code(s): E11.9 - TYPE 2 DIABETES MELLITUS WITHOUT COMPLICATIONS Qualifiers: Diabetes mellitus complication status: with skin complications Diabetes mellitus complication detail: with foot ulcer Qualified Code(s): E11.621 - Type 2 diabetes mellitus with foot ulcer Visit type - Case Type Case Type: Scheduled - Emergency Emergency Visit: Yes ED Registration Date: 03/04/19 Care time: The patient presented to the Emergency Department on the above date and was hospitalized for further evaluation of their emergent condition. - New patient This patient is new to me today: Yes Date on this admission: 03/05/19
[2019-03-05] MEDS ORDERED: ACETAMINOPHEN 500 MG TABLET (FP) PO STA (19:34)
[2019-03-05] MEDS ORDERED: ACETAMINOPHEN 325 MG TABLET (FP) ONE (19:42)
[2019-03-05] MEDS ORDERED: HEPARIN INFUSION - 25,000 UNITS/500 ML INFUS.BAG IVPB ONE (20:32)
[2019-03-05] MEDS: GABAPENTIN 300 MG CAPSULE (FP) PO SCH (22:40)
[2019-03-05] MEDS: MIRTAZAPINE 15 MG TABLET (FP) PO SCH (22:40)
[2019-03-06] MEDS ORDERED: PNEUMOC 13-VAL CONJ-DIP CRM/PF 0.5 ML DISP.SYRIN IM ONE ×2 (00:05→08:00)
[2019-03-06] MEDS: SODIUM CHLORIDE 1,000 ML IV SCH (03:00)
[2019-03-06] MEDS: INSULIN SLIDING SCALE (NOVOLOG) 1 VIAL SQ SCH ×2 (06:30→18:03)
[2019-03-06 07:43] LABS: BASO % 1.1 % (0-2.0); HEMATOCRIT 33.2 % (32.4-45.2); HEMOGLOBIN 10.9 GM/dL (10.7-15.3); MCH 26.2 pg (25.7-33.7); MCHC 32.8 g/dl (32.0-36.0); MEAN CELL VOLUME 79.8 fl (80-96); MEAN PLT VOLUME 8.6 fl (7.5-11.1); MONO % 9.7 % (3.8-10.2); NEUT % 60.2 % (42.8-82.8); PLATELET COUNT 239 K/MM3 (134-434); RBC 4.16 M/mm3 (3.60-5.2); RDW 15.7 % (11.6-15.6); WHITE BLOOD COUNT 7.9 K/mm3 (4.0-10.0)
[2019-03-06 07:48] LABS: ALBUMIN 2.8 g/dl (3.4-5.0); BILIRUBIN,TOTAL 0.3 mg/dL (0.2-1); BLOOD UREA NITROGEN 8.2 mg/dL (7-18); CALCIUM 8.2 mg/dL (8.5-10.1); CREATININE 0.7 mg/dL (0.55-1.3); POTASSIUM 3.6 mmol/L (3.5-5.1); TOT PROT 5.8 g/dl (6.4-8.2)
--- NOTE | 2019-03-06 08:10 | PN ---
Progress Note, Physician Chief Complaint: AWAKE ALERT EVENTS REVIEWED PAIN CONTROLLED - Current Medication List Current Medications: Active Medications Acetaminophen (Tylenol -) 650 mg PO Q4H PRN PRN Reason: PAIN OR FEVER Amlodipine Besylate (Norvasc -) 10 mg PO DAILY [facility] Buspirone HCl (Buspar -) 5 mg PO BID [facility] Last Admin: 03/05/19 22:40 Dose: 5 mg Gabapentin (Neurontin -) 300 mg PO HS [facility] Last Admin: 03/05/19 22:40 Dose: 300 mg Heparin Sodium (Porcine) 25, (000 unit/ Sodium Chloride) 500 mls @ 16 mls/hr IV TITR [facility]; Protocol Last Admin: 03/05/19 20:30 Dose: 700 unit/hr, 14 mls/hr Sodium Chloride (Normal Saline -) 1,000 mls @ 75 mls/hr IV ASDIR [facility] Last Admin: 03/06/19 03:00 Dose: Not Given Insulin Aspart (Novolog Vial Sliding Scale -) 1 vial SQ BIDAC [facility]; Protocol Last Admin: 03/06/19 06:30 Dose: Not Given Mirtazapine (Remeron -) 15 mg PO HS [facility] Last Admin: 03/05/19 22:40 Dose: 15 mg Tramadol HCl (Ultram -) 50 mg PO Q6H PRN PRN Reason: PAIN LEVEL 6-10 Last Admin: 03/06/19 00:53 Dose: 50 mg - Objective Vital Signs: Vital Signs Temperature 98.3 F 03/06/19 07:50 Pulse Rate 72 03/06/19 07:50 Respiratory Rate 20 03/06/19 07:50 Blood Pressure 135/56 L 03/06/19 07:50 O2 Sat by Pulse Oximetry (%) 94 L 03/06/19 05:17 Constitutional: Yes: Mild Distress Cardiovascular: Yes: Regular Rate and Rhythm Respiratory: Yes: WNL Gastrointestinal: Yes: WNL Musculoskeletal: Yes: Muscle Pain Extremities: Yes: Deformity Edema: No Peripheral Pulses WNL: No (DECREASED LOWER EXTREMITY) Integumentary: Yes: Erythema Neurological: Yes: Loss of Sensation, Pre-Existing Deficit, Unsteady Gait ...Motor Strength: LLE, RLE Labs: CBC, BMP 03/06/19 06:50 INR, PTT INR 1.08 (0.83-1.09) 03/04/19 19:15 Problem List - Problems (1) Non-compliance with treatment Code(s): Z91.19 - PATIENT'S NONCOMPLIANCE W OTH MEDICAL TREATMENT AND REGIMEN (2) Uncontrolled diabetes mellitus Code(s): E11.65 - TYPE 2 DIABETES MELLITUS WITH HYPERGLYCEMIA (3) Acute pain of right lower extremity Code(s): M79.604 - PAIN IN RIGHT LEG (4) Anxiety Code(s): F41.9 - ANXIETY DISORDER, UNSPECIFIED (5) Leg pain Code(s): M79.606 - PAIN IN LEG, UNSPECIFIED (6) Right leg claudication Code(s): I73.9 - PERIPHERAL VASCULAR DISEASE, UNSPECIFIED (7) CKD stage 3 secondary to diabetes Code(s): E11.22 - TYPE 2 DIABETES MELLITUS W DIABETIC CHRONIC KIDNEY DISEASE; N18.3 - CHRONIC KIDNEY DISEASE, STAGE 3 (MODERATE) (8) Type 2 diabetes mellitus with diabetic neuropathy Code(s): E11.40 - TYPE 2 DIABETES MELLITUS WITH DIABETIC NEUROPATHY, UNSP Assessment/Plan IV HEPARIN FOR AC VASC SX EVAL FOR ANGIO LE PAIN CONTROL ENDOCRINE CONSULT EDUCATION WITH NUTRITION SSI ADA
[2019-03-06] MEDS ORDERED: PT OWN MED DRAWER 7, Y5N ONE (10:02)
[2019-03-06] MEDS: busPIRone HCL 5 MG TABLET PO SCH ×2 (10:20→23:07)
[2019-03-06] MEDS: amLODIPine BESYLATE 10 MG TABLET (FP) PO SCH (10:20)
[2019-03-06 16:01] VITALS: BMI 18.7
[2019-03-06] MEDS: HEPARIN - 25,000 UNIT in SODIUM CHLORIDE 495 ML IV SCH (20:35)
[2019-03-06] MEDS: GABAPENTIN 300 MG CAPSULE (FP) PO SCH (23:06)
[2019-03-06] MEDS: MIRTAZAPINE 15 MG TABLET (FP) PO SCH (23:07)
[2019-03-07] MEDS: SODIUM CHLORIDE 1,000 ML IV SCH ×2 (02:26→18:34)
[2019-03-07] MEDS ORDERED: ACETAMINOPHEN 1000 MG/100 ML VIAL (NON FORMULARY) IVPB ONE (03:25)
[2019-03-07] MEDS: INSULIN SLIDING SCALE (NOVOLOG) 1 VIAL SQ SCH ×2 (06:19→18:34)
--- NOTE | 2019-03-07 08:04 | PN ---
Progress Note, Physician Chief Complaint: PATIENT IS EATING A CHEESEBURGER WITH IRISH FRIES AND POTATO CHIPS LAST NIUGHT I EXPLAINED TO MS. ADKINS HER A1C WAS 14% AND NOW WITH MEDICATIONS IN THE PAST 6 MONTHS DOWN TO 12.2% I WILL ASK ENDOCRINE AND NUTRITION TO EVALUATE AND DISCUSS PROPER DIABETES MANAGEMENT AND COMPLIANCE PAIN RLE ON HEPARIN IV NO FEVER NO CHILLS - Current Medication List Current Medications: Active Medications Acetaminophen (Tylenol -) 650 mg PO Q4H PRN PRN Reason: PAIN OR FEVER Amlodipine Besylate (Norvasc -) 10 mg PO DAILY [facility] Last Admin: 03/06/19 10:20 Dose: 10 mg Buspirone HCl (Buspar -) 5 mg PO BID [facility] Last Admin: 03/06/19 10:20 Dose: 5 mg Gabapentin (Neurontin -) 300 mg PO HS [facility] Last Admin: 03/06/19 23:06 Dose: 300 mg Heparin Sodium (Porcine) 25, (000 unit/ Sodium Chloride) 500 mls @ 16 mls/hr IV TITR [facility]; Protocol Last Admin: 03/06/19 20:35 Dose: 700 unit/hr, 14 mls/hr Sodium Chloride (Normal Saline -) 1,000 mls @ 75 mls/hr IV ASDIR [facility] Last Admin: 03/07/19 02:26 Dose: 75 mls/hr Insulin Aspart (Novolog Vial Sliding Scale -) 1 vial SQ BIDAC [facility]; Protocol Last Admin: 03/07/19 06:19 Dose: Not Given Mirtazapine (Remeron -) 15 mg PO HS [facility] Last Admin: 03/06/19 23:07 Dose: 15 mg Tramadol HCl (Ultram -) 50 mg PO Q6H PRN PRN Reason: PAIN LEVEL 6-10 Last Admin: 03/06/19 00:53 Dose: 50 mg - Objective Vital Signs: Vital Signs Temperature 98 F 03/07/19 06:35 Pulse Rate 78 03/07/19 06:35 Respiratory Rate 20 03/07/19 06:35 Blood Pressure 132/68 03/07/19 06:35 O2 Sat by Pulse Oximetry (%) 96 03/06/19 21:00 Constitutional: Yes: Mild Distress Cardiovascular: Yes: Regular Rate and Rhythm Respiratory: Yes: WNL Gastrointestinal: Yes: WNL Genitourinary: Yes: WNL Musculoskeletal: Yes: Muscle Pain Edema: No Peripheral Pulses WNL: No Peripheral Pulses: Right Dorsalis Pedis: 0 Wound/Incision: Yes: Clean/Dry Neurological: Yes: Loss of Sensation, Pre-Existing Deficit, Weakness ...Motor Strength: RLE Psychiatric: Yes: Other Labs: CBC, BMP 03/06/19 06:50 03/06/19 06:50 INR, PTT INR 1.08 (0.83-1.09) 03/04/19 19:15 Problem List - Problems (1) Non-compliance with treatment Code(s): Z91.19 - PATIENT'S NONCOMPLIANCE W OTH MEDICAL TREATMENT AND REGIMEN (2) Uncontrolled diabetes mellitus Code(s): E11.65 - TYPE 2 DIABETES MELLITUS WITH HYPERGLYCEMIA (3) Acute pain of right lower extremity Code(s): M79.604 - PAIN IN RIGHT LEG (4) Anxiety Code(s): F41.9 - ANXIETY DISORDER, UNSPECIFIED (5) Leg pain Code(s): M79.606 - PAIN IN LEG, UNSPECIFIED (6) Right leg claudication Code(s): I73.9 - PERIPHERAL VASCULAR DISEASE, UNSPECIFIED (7) CKD stage 3 secondary to diabetes Code(s): E11.22 - TYPE 2 DIABETES MELLITUS W DIABETIC CHRONIC KIDNEY DISEASE; N18.3 - CHRONIC KIDNEY DISEASE, STAGE 3 (MODERATE) (8) Type 2 diabetes mellitus with diabetic neuropathy Code(s): E11.40 - TYPE 2 DIABETES MELLITUS WITH DIABETIC NEUROPATHY, UNSP Assessment/Plan PATIENT SCHEDULED FOR ANGIO RLE TODAY STOPPING HEPARIN AT 12PM FOR ANGIO AT 230PM D/W DR LOYD LEE SX BGM CONTROL ENDOCRINE/NUTRITION CONSULT
[2019-03-07 08:47] LABS: HEMATOCRIT 33.4 % (32.4-45.2); HEMOGLOBIN 10.7 GM/dL (10.7-15.3); MCH 25.8 pg (25.7-33.7); MCHC 31.9 g/dl (32.0-36.0); PLATELET COUNT 229 K/MM3 (134-434); RBC 4.12 M/mm3 (3.60-5.2); RDW 15.7 % (11.6-15.6); WHITE BLOOD COUNT 8.4 K/mm3 (4.0-10.0)
[2019-03-07] MEDS ORDERED: PT OWN MED DRAWER 7, Y5N ONE ×2 (10:13→20:37)
[2019-03-07] MEDS: HEPARIN - 25,000 UNIT in SODIUM CHLORIDE 495 ML IV SCH (10:30)
[2019-03-07] MEDS: busPIRone HCL 5 MG TABLET PO SCH ×2 (10:32→21:24)
[2019-03-07] MEDS: amLODIPine BESYLATE 10 MG TABLET (FP) PO SCH (10:32)
[2019-03-07] MEDS ORDERED: HEPARIN NA (PORCINE) 5,000 UNITS/ML 1ML VIAL IVPUSH PRN ×4 (10:59→17:31)
[2019-03-07] MEDS ORDERED: HEPARIN NA (PORCINE) 5,000 UNITS/ML 1ML VIAL ONE (13:23)
[2019-03-07] MEDS ORDERED: PROPOFOL 20 ML ONE (15:00)
[2019-03-07] MEDS ORDERED: MIDAZOLAM HCL 2 MG/2 ML SINGLE DOSE VIAL ONE (15:00)
[2019-03-07] MEDS ORDERED: oxyCODONE HCL 5 MG TABLET PO PRN ×2 (15:01→17:31)
[2019-03-07] MEDS ORDERED: PROMETHAZINE HCL 25 MG/1 ML VIAL IVPUSH PRN ×2 (15:01→17:31)
[2019-03-07] MEDS ORDERED: ONDANSETRON 4 MG/2 ML VIAL IVPUSH PRN ×2 (15:01→17:31)
[2019-03-07] MEDS ORDERED: ceFAZolin SODIUM 1 GM VIAL IVPB ONE (15:42)
[2019-03-07] MEDS ORDERED: ceFAZolin SODIUM 1 GM VIAL ONE (15:44)
--- NOTE | 2019-03-07 17:07 | OP ---
Operative Note - Note: Operative Date: 03/07/19 Pre-Operative Diagnosis: Right lower extremity claudication Operation: Aortogram, RLE angiogram, SFA DCB angioplasty Findings: SFA stent occlusion Post-Operative Diagnosis: Same as Pre-op Surgeon: Alli Hernandez Anesthesia: Fractional Estimated Blood Loss (mls): 50 Operative Report Dictated: Yes
[2019-03-07] MEDS: CLOPIDOGREL BISULFATE 75 MG TABLET (FP) PO SCH (17:30)
[2019-03-07] MEDS ORDERED: traMADol HCL 50 MG TABLET PO PRN (17:31)
[2019-03-07] MEDS ORDERED: ACETAMINOPHEN 325 MG TABLET (FP) PO PRN (17:31)
[2019-03-07] MEDS ORDERED: HEPARIN - 25,000 UNIT in SODIUM CHLORIDE 495 ML IV SCH (17:31)
[2019-03-07] MEDS ORDERED: CLOPIDOGREL BISULFATE 75 MG TABLET (FP) ONE ×2 (17:40→17:41)
--- NOTE | 2019-03-07 17:52 | OP ---
DATE OF OPERATION: 03/07/2019 PREOPERATIVE DIAGNOSIS: Right lower extremity claudication. POSTOPERATIVE DIAGNOSIS: Right lower extremity claudication. PROCEDURE: Aortogram, right lower extremity angiogram, superficial femoral artery drug coated balloon angioplasty. SURGEON: Alli Harp M.D. ANESTHESIA: Fractional. BLOOD LOSS: 50 mL. INDICATION: The patient is a 78-year-old female that has right lower extremity SFA stent that was placed back in 2014. She has never followed up since 2015 and has continued to smoke with her SFA stents. Patient now came in with claudication of her right lower extremity and she had a CTA performed preoperatively showing that the stents were closed. Patient was consented for the procedure, understanding all risks, benefits, and alternatives, and taken to the operating room. DESCRIPTION OF PROCEDURE: Once in the operating room, she was laid on the operating table in a supine manner, and the area of the left and right groin are prepped and draped in a sterile surgical manner. We then injected 10 mL of lidocaine 1% over the left common femoral artery. We then took a Micropuncture needle and punctured the left common femoral artery. A Micropuncture wire was inserted, Micropuncture sheath was inserted, and a 5-Azeri sheath was inserted. A 0.035 floppy guidewire was inserted into the aorta followed by an Omniflush catheter. We then shot an aortogram via hand injection showing that the aorta and the iliac arteries were without any disease. We then placed our 0.035 floppy guidewire up and over to the right common femoral artery and our Omniflush catheter followed. We then shot an angiogram of the right lower extremity showing that the common femoral artery and profunda were opened, but the SFA was closed basically from its origin all the way down to above the knee where the stent was, and patient had an open popliteal artery beyond it and had one-vessel runoff in the form of perineum. At this point, we went ahead and placed 0.035 stiff guidewire into the SFA stents, removed Omniflush catheter, and a 6 x 45 crossover sheath was placed. 5000 units of IV heparin were administered to the patient. We then placed our 0.035 floppy guidewire down into the popliteal artery. We then used a 6 x 150, 6 x 120, and a 6 x 100 drug coated balloon, 3 separate drug coated balloons, and performed angioplasty of the entire stent sequentially. We left the balloon up for over a minute and a half to two minutes, so that the drug could disseminate into the stent. We then shot a completion angiogram showing that the stents were patent, there was good blood flow into the popliteal artery, and there was good flow into the foot. At this point, we decided no further intervention was needed. We brought our sheath up and over. StarClose device was successfully deployed in the left common femoral artery. Pressure held for 5 minutes, afterwards there was no more bleeding. Areas were then dried and Dermabond was placed. Patient tolerated the procedure without complications. Patient was transferred to PACU in stable condition. Patient had a palpable DP pulse in the right foot. Patient will not be started on Plavix and will be discharged home. ALLI HARP DO [id number]
[2019-03-07] MEDS ORDERED: MIRTAZAPINE 15 MG TABLET (FP) PO SCH (22:00)
[2019-03-07] MEDS ORDERED: GABAPENTIN 300 MG CAPSULE (FP) PO SCH (22:00)
--- NOTE | 2019-03-07 23:50 | CONSULT ---
Consult Consult Specialty:: endocrine Referred by:: dr.ammir gibson Reason for Consultation:: dm type2 - History of Present Illness Chief Complaint: leg pain high sugars at home History of Present Illness: 78 year old female with PMHX of DM2, HTN, PAD,sp ho/ SFA stent placement on the right side, presented with severe pain to RLE , (pain scale: 8/10) pain is worse with ambulation feels better with rest, also complains of extremities being cold. No prior history of similar symptoms. Patient denies acute trauma or injury.she denies CP, SOB or palpitations, fever. she checks bs twice daily, admits they go up afternoon,she denies low bs - Past Medical History Cardio/Vascular: Yes: HTN, Hyperlipdemia Gastrointestinal: Yes: GERD ...: No Endocrine: Yes: Diabetes Mellitus - Alcohol/Substance Use Hx Alcohol Use: No History of Substance Use: reports: None - Smoking History Smoking history: Never smoked Have you smoked in the past 12 months: Yes Aproximately how many cigarettes per day: 3 If you are a former smoker, when did you quit?: 1 year ago - Social History ADL: Independent History of Recent Travel: No Home Medications - Allergies Allergies/Adverse Reactions: Allergies Allergy/AdvReac Type Severity Reaction Status Date / Time No Known Allergies Allergy Verified 03/04/19 15:46 - Home Medications Home Medications: Ambulatory Orders Amlodipine Besylate [Norvasc -] 5 mg PO DAILY 08/10/18 Buspirone HCl [Buspar -] 5 mg PO BID 08/10/18 Linagliptin [Tradjenta] 5 mg PO DAILY 08/10/18 Mirtazapine [Remeron -] 1 tab PO DAILY 08/10/18 Gabapentin 100 mg PO DAILY 03/04/19 Gabapentin 300 mg PO HS 03/04/19 Review of Systems - Review of Systems Constitutional: reports: Weakness Eyes: reports: Blurred Vision HENT: reports: No Symptoms Neck: reports: No Symptoms Cardiovascular: reports: Shortness of Breath Respiratory: reports: Exercise Intolerance, SOB on Exertion Genitourinary: reports: No Symptoms Breasts: reports: No Symptoms Reported Musculoskeletal: reports: Extremity Pain, Muscle Pain, Muscle Cramps, Muscle Weakness Integumentary: reports: No Symptoms Neurological: reports: Numbness, Weakness Endocrine: reports: Unexplained Weight Loss Physical Exam Vital Signs: Vital Signs Temperature 98.7 F 03/07/19 22:00 Pulse Rate 87 03/07/19 22:00 Respiratory Rate 18 03/07/19 22:00 Blood Pressure 146/65 03/07/19 22:00 O2 Sat by Pulse Oximetry (%) 93 L 03/07/19 21:00 Constitutional: Yes: Calm Eyes: Yes: EOM Intact HENT: Yes: Normocephalic Neck: Yes: Trachea Midline Cardiovascular: Yes: Regular Rate and Rhythm Respiratory: Yes: CTA Bilaterally Gastrointestinal: Yes: Normal Bowel Sounds ...Rectal Exam: Yes: Deferred Renal/: Yes: WNL Musculoskeletal: Yes: Muscle Pain, Muscle Weakness Extremities: Yes: Cool, Delayed Capillary Refill Edema: No Edema: LLE: 1+, RLE: 1+ Neurological: Yes: Alert, Oriented Labs: CBC, BMP 03/07/19 06:30 03/06/19 06:50 Problem List - Problems (1) Acute pain of right lower extremity Code(s): M79.604 - PAIN IN RIGHT LEG (2) Anxiety Code(s): F41.9 - ANXIETY DISORDER, UNSPECIFIED (3) Leg pain Code(s): M79.606 - PAIN IN LEG, UNSPECIFIED (4) Non-compliance with treatment Code(s): Z91.19 - PATIENT'S NONCOMPLIANCE W OTH MEDICAL TREATMENT AND REGIMEN (5) Right leg claudication Code(s): I73.9 - PERIPHERAL VASCULAR DISEASE, UNSPECIFIED (6) Uncontrolled diabetes mellitus Code(s): E11.65 - TYPE 2 DIABETES MELLITUS WITH HYPERGLYCEMIA (7) CKD stage 3 secondary to diabetes Code(s): E11.22 - TYPE 2 DIABETES MELLITUS W DIABETIC CHRONIC KIDNEY DISEASE; N18.3 - CHRONIC KIDNEY DISEASE, STAGE 3 (MODERATE) Assessment/Plan Current Active Problems Acute pain of right lower extremity (Acute) Anxiety (Acute) Leg pain (Acute) Non-compliance with treatment (Acute) Right leg claudication (Acute) Uncontrolled diabetes mellitus (Acute) Abnormal Lab Results 03/07/19 06:30 MCHC 31.9 L RDW 15.7 H Laboratory Results - last 24 hr 03/07/19 03/07/19 03/07/19 06:22 06:30 06:30 WBC 8.4 RBC 4.12 Hgb 10.7 Hct 33.4 MCV 81.0 MCH 25.8 MCHC 31.9 L RDW 15.7 H Plt Count 229 MPV 9.0 PTT (Actin FS) 34.7 POC Glucometer 127 03/07/19 18:08 WBC RBC Hgb Hct MCV MCH MCHC RDW Plt Count MPV PTT (Actin FS) POC Glucometer 81 Laboratory Tests 03/06/19 03/06/19 03/06/19 06:50 06:50 18:01 Sodium 147 H Potassium 3.6 Chloride 112 H Carbon Dioxide 24 Anion Gap 11 BUN 8.2 Creatinine 0.7 Est GFR (CKD-EPI)AfAm 96.18 Est GFR (CKD-EPI)NonAf 82.99 POC Glucometer 202 Hemoglobin A1c % 12.2 H 03/07/19 06:22 Sodium Potassium Chloride Carbon Dioxide Anion Gap BUN Creatinine Est GFR (CKD-EPI)AfAm Est GFR (CKD-EPI)NonAf POC Glucometer 127 Hemoglobin A1c % plan: bgm acmeals januvia 50mg/day glimiperide 2mg daily vns and nutrition evaluation home monitoring bgms
[2019-03-08] MEDS: INSULIN SLIDING SCALE (NOVOLOG) 1 VIAL SQ SCH ×2 (06:05→12:14)
[2019-03-08] MEDS ORDERED: INSULIN SLIDING SCALE (NOVOLOG) 1 VIAL SQ SCH (07:00)
[2019-03-08] MEDS ORDERED: GLIMEPIRIDE 2 MG TABLET (FP) PO SCH (07:00)
[2019-03-08] MEDS ORDERED: sitaGLIPtin PHOSPHATE 50 MG TABLET PO SCH (07:00)
[2019-03-08] MEDS: SODIUM CHLORIDE 1,000 ML IV SCH (07:26)
[2019-03-08 08:43] LABS: HEMATOCRIT 32.6 % (32.4-45.2); HEMOGLOBIN 10.5 GM/dL (10.7-15.3); MCH 25.8 pg (25.7-33.7); MCHC 32.1 g/dl (32.0-36.0); MEAN CELL VOLUME 80.4 fl (80-96); MEAN PLT VOLUME 8.5 fl (7.5-11.1); PLATELET COUNT 210 K/MM3 (134-434); RBC 4.06 M/mm3 (3.60-5.2); RDW 15.6 % (11.6-15.6); WHITE BLOOD COUNT 8.6 K/mm3 (4.0-10.0)
--- NOTE | 2019-03-08 09:32 | PN ---
Progress Note (short form) - Note Progress Note: Vascular Surgery Pt seen and examined. RLE warm, pink. Palpable pulse right DP Cont present care. Pt should go home on plavix. RTC in one week. card given to pt Alli Hernandez DO
[2019-03-08] MEDS: CLOPIDOGREL BISULFATE 75 MG TABLET (FP) PO SCH (09:39)
[2019-03-08] MEDS: busPIRone HCL 5 MG TABLET PO SCH (09:46)
[2019-03-08] MEDS ORDERED: amLODIPine BESYLATE 10 MG TABLET (FP) PO SCH (10:00)
--- NOTE | 2019-03-08 10:35 | DS ---
Physical Examination Vital Signs: Vital Signs Temperature 98.7 F 03/08/19 06:55 Pulse Rate 88 03/08/19 06:55 Respiratory Rate 20 03/08/19 06:55 Blood Pressure 140/67 03/08/19 06:55 O2 Sat by Pulse Oximetry (%) 93 L 03/07/19 21:00 Constitutional: Yes: No Distress Eyes: Yes: WNL HENT: Yes: WNL Neck: Yes: WNL Cardiovascular: Yes: WNL Respiratory: Yes: WNL Gastrointestinal: Yes: WNL Musculoskeletal: Yes: WNL Extremities: Yes: WNL Edema: No Peripheral Pulses WNL: Yes Integumentary: Yes: WNL Wound/Incision: Yes: Clean/Dry Neurological: Yes: WNL ...Motor Strength: WNL Psychiatric: Yes: WNL Labs: CBC, BMP 03/08/19 07:47 03/06/19 06:50 Discharge Summary Reason For Visit: RIGHT CALF PAIN Current Active Problems Acute pain of right lower extremity (Acute) Anxiety (Acute) Leg pain (Acute) Non-compliance with treatment (Acute) Right leg claudication (Acute) Uncontrolled diabetes mellitus (Acute) Procedures: Principal: angioplasty with stent Hospital Course: admitted with right lower extremity occlusion with angioplasty performed and stent placed - Instructions Diet, Activity, Other Instructions: ada low fat/na diet compliance d/w patient for diabetes control see Dr cotton for endocrine f/u as outpatient see Dr Hernandez for vasc sx follow up Disposition: VNS/HOME HEALTH CARE - Home Medications Comprehensive Discharge Medication List: Ambulatory Orders Amlodipine Besylate [Norvasc -] 5 mg PO DAILY 08/10/18 Buspirone HCl [Buspar -] 5 mg PO BID 08/10/18 Linagliptin [Tradjenta] 5 mg PO DAILY 08/10/18 Mirtazapine [Remeron -] 1 tab PO DAILY 08/10/18 Gabapentin 100 mg PO DAILY 03/04/19 Gabapentin 300 mg PO HS 03/04/19 Acetaminophen [Tylenol .Regular Strength -] 650 mg PO Q4H PRN tablet 03/08/19 Aspirin Coated [Ecotrin -] 81 mg PO DAILY #30 tablet.ec 03/08/19 Clopidogrel Bisulfate [Plavix -] 75 mg PO DAILY #30 tablet 03/08/19 Clopidogrel Bisulfate [Plavix -] 75 mg PO DAILY #30 tablet 03/08/19 Glimepiride [Amaryl -] 2 mg PO DAILY@0700 #30 tablet 03/08/19 Sitagliptin Phosphate [Januvia -] 50 mg PO DAILY@0700 #30 tablet 03/08/19
[2019-03-08 11:49] VITALS: BP 145/80; PULSE 75; TEMP 98.2
--- NOTE | 2019-03-17 11:16 | PN ---
Progress Note (short form) - Note Progress Note: ADDENDUM DIAGNOSIS: MODERATE PROTEIN CALORIE MALNUTRITION Problem List - Problems (1) Non-compliance with treatment Code(s): Z91.19 - PATIENT'S NONCOMPLIANCE W OTH MEDICAL TREATMENT AND REGIMEN (2) Uncontrolled diabetes mellitus Code(s): E11.65 - TYPE 2 DIABETES MELLITUS WITH HYPERGLYCEMIA (3) Acute pain of right lower extremity Code(s): M79.604 - PAIN IN RIGHT LEG (4) Anxiety Code(s): F41.9 - ANXIETY DISORDER, UNSPECIFIED (5) Leg pain Code(s): M79.606 - PAIN IN LEG, UNSPECIFIED (6) Right leg claudication Code(s): I73.9 - PERIPHERAL VASCULAR DISEASE, UNSPECIFIED (7) CKD stage 3 secondary to diabetes Code(s): E11.22 - TYPE 2 DIABETES MELLITUS W DIABETIC CHRONIC KIDNEY DISEASE; N18.3 - CHRONIC KIDNEY DISEASE, STAGE 3 (MODERATE) (8) Type 2 diabetes mellitus with diabetic neuropathy Code(s): E11.40 - TYPE 2 DIABETES MELLITUS WITH DIABETIC NEUROPATHY, UNSP
== END 2019-03-08 13:30 | disposition home health service (06) | DRG 253 ==
LOC: JER 15:34 → JERBED 22:14 → J8W 03-05 22:14
PROVIDERS: ADMIT Family Medicine; ATTEND Family Medicine
PROC: B40DYZZ Plain Radiography of Aorta and Bilateral Lower Extremity Arteries using Other Contrast (ICD-10-PCS; 2019-03-07)
PROC: 047K36Z Dilation of Right Femoral Artery with Three Drug-eluting Intraluminal Devices, Percutaneous Approach (ICD-10-PCS; principal; 2019-03-07 15:00)
DX: T82.9XXA Unspecified complication of cardiac and vascular prosthetic device, implant and graft, initial encounter (principal); E46 Unspecified protein-calorie malnutrition; Z68.1 Body mass index [BMI] 19.9 or less, adult; I77.1 Stricture of artery; E78.5 Hyperlipidemia, unspecified; F41.9 Anxiety disorder, unspecified; E11.65 Type 2 diabetes mellitus with hyperglycemia; Z91.14 Patient's other noncompliance with medication regimen; E11.22 Type 2 diabetes mellitus with diabetic chronic kidney disease; I12.9 Hypertensive chronic kidney disease with stage 1 through stage 4 chronic kidney disease, or unspecified chronic kidney disease; N18.3 Chronic kidney disease, stage 3 (moderate); Y83.9 Surgical procedure, unspecified as the cause of abnormal reaction of the patient, or of later complication, without mention of misadventure at the time of the procedure; E11.621 Type 2 diabetes mellitus with foot ulcer; E11.40 Type 2 diabetes mellitus with diabetic neuropathy, unspecified; K21.9 Gastro-esophageal reflux disease without esophagitis
CPT/HCPCS: 36415; 75635-TC; 76000-TC-FY; 80048; 80053; 81003; 82272; 82962; 83036; 85025; 85027; 85610; 85730; 86850; 86900; 86901; 93005; 93010; 93925-TC; 93926-TC; 93971-TC; 94760; 99284-25; J0131; J1644; J7030

== ENCOUNTER 2019-08-24 11:21 | Emergency (ER) | payer OTHER ==
[2019-08-24 11:34] VITALS: BP 145/78; PULSE 105; TEMP 98.2; BMI 17.9
--- NOTE | 2019-08-24 11:58 | PDOC ---
History of Present Illness - General Chief Complaint: Wound Stated Complaint: LFT LEG PAIN Time Seen by Provider: 08/24/19 11:58 Past History - Past Medical History Allergies/Adverse Reactions: Allergies Allergy/AdvReac Type Severity Reaction Status Date / Time No Known Allergies Allergy Verified 07/27/19 14:56 Home Medications: Ambulatory Orders Buspirone HCl [Buspar -] 5 mg PO BID 07/27/19 Mirtazapine [Remeron -] 1 tab PO HS 07/27/19 Cetirizine HCl [Allergy Relief] 10 mg PO DAILY 08/24/19 Glimepiride [Amaryl -] 2 mg PO DAILY 08/24/19 COPD: No Diabetes: Yes HTN: Yes Hypercholesterolemia: Yes Psychiatric Problems: Yes (ANXIETY) - Immunization History Immunization Up to Date: No - Psycho Social/Smoking Cessation Hx Smoking Status: Yes Smoking History: Never smoked Have you smoked in the past 12 months: Yes Number of Cigarettes Smoked Daily: 3 If you are a former smoker, when did you quit?: 1 year ago 'Breaking Loose' booklet given: 03/05/19 Hx Alcohol Use: No Drug/Substance Use Hx: No Substance Use Type: None Hx Substance Use Treatment: No *Physical Exam - Vital Signs Last Vital Signs Temp Pulse Resp BP Pulse Ox 98.2 F 105 H 18 145/78 97 08/24/19 11:33 08/24/19 11:33 08/24/19 11:33 08/24/19 11:33 08/24/19 11:33 08/24/19 13:02 78 y/o female PMH HTN, NIDDM, RIGHT SFA stent placement (2014), and nicotine dependence c/o LLE lesion. She states this began 2 weeks ago, was initially red and uncomfortable and now is itchy and painful. She denies FNVD, chills, and constipation. She denies trauma to the area. She says the pain is located at the site of the lesion, non-radiating, and currently 6/10. She is actively smoking 1-3 cigarettes per day; she is in the pre-contemplative state and was educated on the risks/benefits of cessation. She is able to walk at her baseline; she reports that she does not use assistance. No new meds/herbs , drugs/supplements. No recent illness, sick contacts, or recent travel. Surg hx: RIGHT SFA stent placement (2015) Social hx: Active smoker since teenage years. Denies etoh and recreational drugs. Fam hx: Denies any illness GENERAL: AO x3 NAD, Kyrgyz speaking HEAD: NCAT EYES: LUDA, EOMI, sclera anicteric, conjunctiva clear. No ptosis. ENT: Ears normal, nares patent, oropharynx clear without exudates, moist mucous membranes. NECK: Trachea midline, full range of motion, supple. LUNGS: CTAB , no wheezes, no crackles, no accessory muscle use. HEART: RRR, S1, S2 without murmur, rub or gallop. ABDOMEN: Soft, nontender, nondistended, normoactive bowel sounds, no guarding, no rebound, no hepatosplenomegaly, no masses. > EXTREMITIES: LLE extensor surface (mid-alexandra) 8x6 cm errythematous lesion/ ulcer with central necrosis/eschar with NO purulence. 2+ pulses, warm, well- perfused, no edema. NEUROLOGICAL: Cranial nerves II through XII grossly intact. Normal speech, gait not observed. PSYCH: Normal mood, normal affect. SKIN: Warm, dry, normal turgor, no rashes or lesions noted REVIEW OF SYSTEMS CONSTITUTIONAL: Absent: fever, chills, diaphoresis, generalized weakness, malaise, loss of appetite, weight change HEENT: Absent: rhinorrhea, nasal congestion, throat pain, throat swelling, difficulty swallowing, mouth swelling, ear pain, eye pain, visual changes CARDIOVASCULAR: Absent: chest pain, syncope, palpitations, irregular heart rate, lightheadedness , peripheral edema RESPIRATORY: Absent: cough, shortness of breath, dyspnea with exertion, orthopnea, wheezing, stridor, hemoptysis GASTROINTESTINAL: Absent: abdominal pain, abdominal distension, nausea, vomiting, diarrhea, constipation, melena, hematochezia GENITOURINARY: Absent: dysuria, frequency, urgency, hesitancy, hematuria, flank pain, genital pain MUSCULOSKELETAL: Absent: myalgia, arthralgia, joint swelling, back pain, neck pain SKIN: Absent: rash, itching, pallor HEMATOLOGIC/IMMUNOLOGIC: Absent: easy bleeding, easy bruising, lymphadenopathy, frequent infections ENDOCRINE: Absent: unexplained weight gain, unexplained weight loss, heat intolerance, cold intolerance NEUROLOGIC: Absent: headache, focal weakness or paresthesias, dizziness, unsteady gait, seizure, mental status changes, bladder or bowel incontinence PSYCHIATRIC: Absent: anxiety, depression, suicidal or homicidal ideation, hallucinations. # DM ulcer VS PVD - CBC, CMP - LLE xray - Clindamycin 450 mg once - Plan to dc home with instructions to follow with Wound Care Discharge - Discharge Information Problems reviewed: Yes Clinical Impression/Diagnosis: Hypertension Qualifiers: Hypertension type: essential hypertension Qualified Code(s): I10 - Essential ( primary) hypertension Diabetes Qualifiers: Diabetes mellitus type: type 2 Diabetes mellitus jail insulin use: without jail use Diabetes mellitus complication status: with skin complications Diabetes mellitus complication detail: with other skin ulcer Qualified Code(s): E11.622 - Type 2 diabetes mellitus with other skin ulcer - Admission No - Additional Discharge Information Health Concerns: TU VISITA Viniste al hospital porque tenas garry lcera en la pascual BLOCK. Lo vieron en el departamento de emergencias y le dieron antibiticos y la derivacin a Wound Care. Ahora est estable y puede continuar recibiendo atencin en la clnica Wound Care. MEDICAMENTOS Contine tomando kin medicamentos caseros segn lo recetado. CUIDADO ADICIONAL Jah garry helene para carolynn a awad proveedor de atencin primaria dentro de 1 semana a partir de hoy. Jah garry helene para carolynn a un proveedor de atencin primaria dentro de 1 semana a partir de hoy. [place] no tiene radha, puede llamar al para programar garry helene en la clnica para residentes del [facility], ubicada en [address] [place] [address]. Si desea seguir viendo al Dr. Domingo Valentino, solicite garry helene el mircoles por la israelana. INFORMACIN ADICIONAL Llame al 651 o acuda directamente al departamento de emergencias si experimenta dolor de johanna inusual, cambio de visin, dificultad para respirar, dolor en el pecho, entumecimiento, hormigueo, prdida de alerta / conciencia, prdida de funcin, sangrado inusual o cualquier sntoma alarmante. YOUR VISIT You came to the hospital because you were experiencing an ulcer on your LEFT leg. You were seen in the emergency department and given antibiotics and referral to Wound Care. You are now stable and may continue care in the Wound Care clinic. MEDICATIONS Please continue to take your home medications as prescribed. ADDITIONAL CARE Please make an appointment to see your primary care provider 1 week from today. Please make an appointment to see a primary care provider 1 week from today. Since you do not have one, you can call to schedule an appointment at the [facility] residents' clinic, located at [address] [place] [address]. If you would like to continue seeing Dr. Domingo Valentino, please ask for a Tuesday morning appointment. ADDITIONAL INFORMATION Please call [phone] or come directly to the emergency department if you experience unusual headache, vision change, shortness of breath, chest pain, numbness, tingling, loss of alertness/awareness, loss of function, unusual bleeding or any alarming symptoms. - Follow up/Referral - Patient Discharge Instructions - Post Discharge Activity
--- NOTE | 2019-08-24 12:19 | PDOC ---
*Physical Exam - Vital Signs Last Vital Signs Temp Pulse Resp BP Pulse Ox 98.2 F 105 H 18 145/78 97 08/24/19 11:33 08/24/19 11:33 08/24/19 11:33 08/24/19 11:33 08/24/19 11:33 ED Treatment Course - LABORATORY CBC & Chemistry Diagram: 08/24/19 13:30 08/24/19 13:30 Medical Decision Making - Medical Decision Making 08/24/19 12:31 Patient evaluated as pre attending with Dr. Valentino (PGY-1 Internal Medicine ) and Dr. Cash (Attending 78 y/o female with PMH of NIDDM, HTN here w/LLE wound Wound has been presents for 2 weeks w/worsening pain and turning initially red and now black. No difficulty ambulating No fevers/chills, tolerating PO intake. H/o PVD with RLE stent in 2017 PE significant for 5 cm x 3 anterior alexandra wound, erythematous border w/black eschar center; 2+ DP pulse Patient requires evaluation with wound clinic. Will start on PO Abx w/MRSA coverage 08/24/19 12:34 Dr. Cash discussed case w/Dr. Hernandez. Will evaluate in wound clinic today @ 1400 as outpatient wound clinic evaluation not available until 08/30/2019. Witholding abx pending wound evaluation 08/24/19 14:12 Patient d/c wound care Discharge - Discharge Information Problems reviewed: Yes Clinical Impression/Diagnosis: Hypertension Qualifiers: Hypertension type: essential hypertension Qualified Code(s): I10 - Essential ( primary) hypertension Diabetes Qualifiers: Diabetes mellitus type: type 2 Diabetes mellitus long-term insulin use: without ferry terminal supervisor use Diabetes mellitus complication status: with skin complications Diabetes mellitus complication detail: with other skin ulcer Qualified Code(s): E11.622 - Type 2 diabetes mellitus with other skin ulcer - Additional Discharge Information Health Concerns: TU VISITA Viniste al hospital porque tenas garry lcera en la pascual MARCOSDA. Lo vieron en el departamento de emergencias y le dieron antibiticos y la derivacin a Wound Care. Ahora est estable y puede continuar recibiendo atencin en la clnica Wound Care. MEDICAMENTOS Contine tomando kin medicamentos caseros segn lo recetado. CUIDADO ADICIONAL Jah garry helene para carolynn a awad proveedor de atencin primaria dentro de 1 semana a partir de hoy. Jah garry helene para carolynn a un proveedor de atencin primaria dentro de 1 semana a partir de hoy. [place] no tiene radha, puede llamar al para programar garry helene en la clnica para residentes del [facility], ubicada en [address] [place] [address]. Si desea seguir viendo al Dr. Domingo Valentino, solicite garry helene el mircoles por la maana. INFORMACIN ADICIONAL Llame al 911 o acuda directamente al departamento de emergencias si experimenta dolor de johanna inusual, cambio de visin, dificultad para respirar, dolor en el pecho, entumecimiento, hormigueo, prdida de alerta / conciencia, prdida de funcin, sangrado inusual o cualquier sntoma alarmante. YOUR VISIT You came to the hospital because you were experiencing an ulcer on your LEFT leg. You were seen in the emergency department and given antibiotics and referral to Wound Care. You are now stable and may continue care in the Wound Care clinic. MEDICATIONS Please continue to take your home medications as prescribed. ADDITIONAL CARE Please make an appointment to see your primary care provider 1 week from today. Please make an appointment to see a primary care provider 1 week from today. Since you do not have one, you can call to schedule an appointment at the [facility] residents' clinic, located at [address] [place] [address]. If you would like to continue seeing Dr. Domingo Valentino, please ask for a Tuesday morning appointment. ADDITIONAL INFORMATION Please call 911 or come directly to the emergency department if you experience unusual headache, vision change, shortness of breath, chest pain, numbness, tingling, loss of alertness/awareness, loss of function, unusual bleeding or any alarming symptoms. - Follow up/Referral - Patient Discharge Instructions - Post Discharge Activity
[2019-08-24] MEDS ORDERED: CLINDAMYCIN HCL 150 MG CAPSULE (FP) PO ONE (13:01)
[2019-08-24 13:40] LABS: BASO % 0.8 % (0-2.0); EOS % 1.4 % (0-4.5); HEMATOCRIT 41.5 % (32.4-45.2); HEMOGLOBIN 13.2 GM/dL (10.7-15.3); LYMPH % 17.4 % (8-40); MCH 25.5 pg (25.7-33.7); MCHC 31.8 g/dl (32.0-36.0); MEAN CELL VOLUME 80.2 fl (80-96); MEAN PLT VOLUME 7.9 fl (7.5-11.1); NEUT % 73.4 % (42.8-82.8); PLATELET COUNT 316 K/MM3 (134-434); RBC 5.17 M/mm3 (3.60-5.2)
[2019-08-24 14:11] LABS: ALBUMIN 3.3 g/dl (3.4-5.0); BILIRUBIN,TOTAL 0.4 mg/dL (0.2-1); BLOOD UREA NITROGEN 16.7 mg/dL (7-18); CALCIUM 9.7 mg/dL (8.5-10.1); CREATININE 1.1 mg/dL (0.55-1.3); POTASSIUM 5.5 mmol/L (3.5-5.1); TOT PROT 7.3 g/dl (6.4-8.2)
--- NOTE | 2019-08-24 14:21 | PDOC ---
Attending Attestation - Resident Resident Name: Domingo Valentino - ED Attending Attestation I have performed the following: I have examined & evaluated the patient, The case was reviewed & discussed with the resident, I agree w/resident's findings & plan, Exceptions are as noted - HPI HPI: 08/24/19 14:18 78 hypertension 2-week history of left lower extremity wound to left alexandra presents ED for evaluation - Physicial Exam PE: 08/24/19 14:18 Vitals: Triage Vital signs reviewed General Appearance: No acute distress, well nourished well developed, Head: Atraumatic, Cardiac: Regular rate and rhythym, no murmurs, no rubs, no gallops, Lungs: Clear to auscultation bilateral, good air movement bilaterally, Abdomen: Soft, non distended, normal bowel sounds, non tender to palpation 5 cm x 3 cm area of infection to left alexandra with black eschar and middle Extremities: Full range of motion to all extremities, no cyanosis, clubbing, or edema Skin: 5 cm x 3 cm area of infection to left alexandra with black eschar and middle, No streaking red lines Neuro: Neurovascularly intact distally good distal pulses Psych: Normal mood, normal affect - Medical Decision Making 08/24/19 14:21 Patient started on clindamycin We will send patient to wound center for evaluation and further management
== END 2019-08-24 14:33 | disposition home or self-care (01) ==
LOC: JER 11:21
DX: E11.622 Type 2 diabetes mellitus with other skin ulcer (principal); I10 Essential (primary) hypertension; Z95.5 Presence of coronary angioplasty implant and graft; Z87.891 Personal history of nicotine dependence; F41.9 Anxiety disorder, unspecified; E78.00 Pure hypercholesterolemia, unspecified
CPT/HCPCS: 29581-LT; 36415; 73590-TC-LT-FY; 80053; 85025; 99284-25; G0463-25

== ENCOUNTER 2019-08-29 17:04 | Emergency (ER) | payer OTHER ==
--- NOTE | 2019-08-29 17:14 | PDOC ---
History of Present Illness - General Stated Complaint: LEG PAIN Time Seen by Provider: 08/29/19 17:14 History Source: Patient Exam Limitations: No Limitations - History of Present Illness Initial Comments: 78 year old female with PMH HTN, IDDM, RIGHT SFA stent placement (2014) presented to ED for left lower extremity ulcer pain x3 weeks, worsening over the last few days. Pt reported she is following with Dr. Hernandez, and taking her antibiotics as prescribed, and taking Advil for pain, with minimal relief of symptoms. Pt denied fever, chills, nausea, vomiting, lightheadedness, chest pain, shortness of breath. ROS General: denied fever, chills, generalized weakness. HEENT: denied sore throat, rhinorrhea, ear pain. Cardiovascular: denied chest pain, palpitations, syncope, diaphoresis. Respiratory: denied shortness of breath, cough, sputum production, hemoptysis. Gastrointestinal: denied abdominal pain, nausea, vomiting, diarrhea, constipation, blood in stool. Genitourinary: denied dysuria, increased urinary frequency, hematuria, urinary incontinence, flank pain. Back: denied back pain. Musculoskeletal: admitted to left lower extremity pain. denied joint pain, muscle pain, joint swelling. Neurological: denied headache, dizziness, numbness, tingling, weakness. Integumentary: denied rash, laceration, abrasion. Hematologic/Lymphatic: denied bruising or bleeding. PE Constitutional: Well-nourished, Well-developed, appearing stated age. HEENT: head is normocephalic, atraumatic. EOMI. PERRLA. Neck: supple. Full ROM. Cardiovascular: regular heart rhythm. Normal S1 and S2. no murmurs. no pericardial friction rub. Respiratory: clear to auscultation bilaterally. no crackles, rhonchi or wheezing. no stridor. Gastrointestinal: soft, flat, nontender. normal bowel sounds. no rebound, guar ding, or masses. Extremities: peripheral pulses intact and equal. no lower extremity edema noted. neurovascularly intact bilateral lower extremities. Neurological: CN 2-12 grossly intact. moves all four extremities. Psych: awake, alert, oriented x3. follows commands. answers questions appropriately. Skin: 4x6 necrotic ulcer to the anterior aspect of the left lower extremity with 2 cm of surrounding erythema, no increased warmth. Past History - Past Medical History Allergies/Adverse Reactions: Allergies Allergy/AdvReac Type Severity Reaction Status Date / Time No Known Allergies Allergy Verified 07/27/19 14:56 Home Medications: Ambulatory Orders Buspirone HCl [Buspar -] 5 mg PO BID 07/27/19 Mirtazapine [Remeron -] 1 tab PO HS 07/27/19 Cephalexin [Keflex] 500 mg PO TID #21 capsule 08/24/19 Cetirizine HCl [Allergy Relief] 10 mg PO DAILY 08/24/19 Clindamycin [Cleocin -] 150 mg PO Q8H 7 Days #21 capsule 08/24/19 Glimepiride [Amaryl -] 2 mg PO DAILY 08/24/19 COPD: No Diabetes: Yes HTN: Yes Hypercholesterolemia: Yes Psychiatric Problems: Yes (ANXIETY) - Immunization History Immunization Up to Date: No - Psycho Social/Smoking Cessation Hx Smoking Status: Yes Smoking History: Never smoked Have you smoked in the past 12 months: Yes Number of Cigarettes Smoked Daily: 3 If you are a former smoker, when did you quit?: 1 year ago 'Breaking Loose' booklet given: 03/05/19 Hx Alcohol Use: No Drug/Substance Use Hx: No Substance Use Type: None Hx Substance Use Treatment: No ED Treatment Course - LABORATORY CBC & Chemistry Diagram: 08/29/19 19:00 08/29/19 19:00 Medical Decision Making - Medical Decision Making 78 year old female with above PMH presented to ED for continued pain at the left lower extremity arterial insufficiency ulcer. Initial Vital Signs Temp Pulse Resp BP Pulse Ox 98.7 F 96 H 16 133/88 96 08/29/19 17:43 08/29/19 17:43 08/29/19 17:43 08/29/19 17:43 08/29/19 17:43 Labs ordered: CBC, CMP Imaging ordered: CXR Medications ordered: oxycodone 5 mg PO once Discharge - Discharge Information Problems reviewed: Yes Clinical Impression/Diagnosis: Cellulitis of right foot, Acute pain of right lower extremity Condition: Improved Disposition: HOME - Follow up/Referral Referrals: Alli Hernandez DO [Staff Physician] - Call tomorrow Moi Valdivia MD [Primary Care Provider] - - Patient Discharge Instructions Patient Printed Discharge Instructions: DI for Cellulitis -- Adult Additional Instructions: Please return to the emergency department with any new or worsening symptoms or concerns. Please follow up with your primary care physician within 72 hours. Continue to take Tylenol as needed for pain every 6-8 hours. You should continue to take Keflex and clindamycin as directed daily. Follow up with Dr. Hernandez 08-31-19, as instructed. - Post Discharge Activity
[2019-08-29] MEDS ORDERED: ACETAMINOPHEN 1000 MG/100 ML VIAL (NON FORMULARY) IVPB ONE (17:34)
[2019-08-29] MEDS ORDERED: SODIUM CHLORIDE 1,000 ML IV STA (17:34)
[2019-08-29 17:50] VITALS: BMI 17.6
--- NOTE | 2019-08-29 18:00 | PDOC ---
Attending Attestation - Resident Resident Name: ZeusElizabeth - ED Attending Attestation I have performed the following: I have examined & evaluated the patient, The case was reviewed & discussed with the resident, I agree w/resident's findings & plan, Exceptions are as noted - HPI HPI: 08/29/19 17:54 78yoF presents w/ c/o lower extremity ulcer pain. Has f/u appointment w/ Dr. Hernandez on 08/30, but seh feels that she can't wait becuase "it hurts too much". Taking ibuprofen only for pain, Keflex to prevent infection. - Physicial Exam PE: 08/29/19 17:59 NAD 5cm x 3cm ulcer to anterior alexandra of LLE, covered in dry necrotic escar, minimal erythema, no warmth. palpable DP pulse distally, Cap refill 3-5 seconds, LLE slightly cooler to touch than RLE. A&O x 3 - Medical Decision Making 08/29/19 18:00 78yoF w/ painful shallow ulcer to L alexandra. - labs - pain control - likely will be able to DC for f/u w/ Dr. Hernandez in 2d as scheduled.
[2019-08-29] MEDS ORDERED: oxyCODONE HCL 5 MG TABLET PO ONE (18:04)
[2019-08-29] MEDS ORDERED: oxyCODONE HCL 5 MG TABLET ONE (18:38)
[2019-08-29 19:13] LABS: EOS % 1.2 % (0-4.5); HEMOGLOBIN 12.8 GM/dL (10.7-15.3); LYMPH % 22.2 % (8-40); MCH 25.7 pg (25.7-33.7); MEAN CELL VOLUME 80.3 fl (80-96); MEAN PLT VOLUME 8.4 fl (7.5-11.1); MONO % 8.8 % (3.8-10.2); NEUT % 66.8 % (42.8-82.8); PLATELET COUNT 287 K/MM3 (134-434); RBC 4.98 M/mm3 (3.60-5.2); RDW 15.9 % (11.6-15.6); WHITE BLOOD COUNT 10.1 K/mm3 (4.0-10.0)
[2019-08-29 19:42] LABS: ALBUMIN 3.1 g/dl (3.4-5.0); BILIRUBIN,TOTAL 0.1 mg/dL (0.2-1); BLOOD UREA NITROGEN 32.1 mg/dL (7-18); CALCIUM 9.2 mg/dL (8.5-10.1); CREATININE 1.2 mg/dL (0.55-1.3); POTASSIUM 5.3 mmol/L (3.5-5.1); TOT PROT 6.8 g/dl (6.4-8.2)
[2019-08-29] MEDS ORDERED: LACTATED RINGERS SOLUTION 1,000 ML/1,000 ML INFUS.BAG IV SCH (20:15)
[2019-08-29 20:21] VITALS: BP 148/86; PULSE 94; TEMP 98.2
--- NOTE | 2019-08-29 20:21 | PDOC ---
*Physical Exam - Vital Signs Last Vital Signs Temp Pulse Resp BP Pulse Ox 98.7 F 96 H 16 133/88 96 08/29/19 17:43 08/29/19 17:43 08/29/19 17:43 08/29/19 17:43 08/29/19 17:43 ED Treatment Course - LABORATORY CBC & Chemistry Diagram: 08/29/19 19:00 08/29/19 19:00 - ADDITIONAL ORDERS Additional order review: Laboratory Results 08/29/19 19:00 Sodium 139 Potassium 5.3 H Chloride 108 H Carbon Dioxide 24 Anion Gap 6 L BUN 32.1 H Creatinine 1.2 Est GFR (CKD-EPI)AfAm 50.13 Est GFR (CKD-EPI)NonAf 43.25 Random Glucose 223 H Calcium 9.2 Total Bilirubin 0.1 L AST 8 L ALT 12 L Alkaline Phosphatase 110 Total Protein 6.8 Albumin 3.1 L 08/29/19 19:00 RBC 4.98 MCV 80.3 MCHC 32.0 RDW 15.9 H MPV 8.4 Neutrophils % 66.8 Lymphocytes % 22.2 D Monocytes % 8.8 Eosinophils % 1.2 Basophils % 1.0 - Medications Given in the ED: ED Medications Discontinued Medications Generic Name Dose Route Start Last Admin Trade Name Freq PRN Reason Stop Dose Admin Acetaminophen 1,000 mg 08/29/19 17:34 08/29/19 18:08 Ofirmev Injection - IVPB 08/29/19 17:35 Not Given ONCE ONE Sodium Chloride 1,000 mls @ 1,000 mls/hr 08/29/19 17:34 08/29/19 18:08 Normal Saline - IV 08/29/19 18:33 Not Given ASDIR STA Oxycodone HCl 5 mg 08/29/19 18:04 08/29/19 18:46 Roxicodone - PO 08/29/19 18:05 5 mg ONCE ONE Administration Medical Decision Making - Medical Decision Making 08/29/19 20:21 8 year old female with PMH HTN, IDDM, RIGHT SFA stent placement (2014) presented to ED for left lower extremity ulcer pain x3 weeks, worsening over the last few days. Pt reported she is following with Dr. Hernandez, and taking her antibiotics as prescribed, and taking Advil for pain, with minimal relief of symptoms. Denies any fever, chills, N/V, SOB or chest pain. I am to follow up on Labs. CBC,CMP WBC 10.1 K/mm3 (4.0-10.0) H 08/29/19 19:00 RBC 4.98 M/mm3 (3.60-5.2) 08/29/19 19:00 Hgb 12.8 GM/dL (10.7-15.3) 08/29/19 19:00 Hct 40.0 % (32.4-45.2) 08/29/19 19:00 MCV 80.3 fl (80-96) 08/29/19 19:00 MCH 25.7 pg (25.7-33.7) 08/29/19 19:00 MCHC 32.0 g/dl (32.0-36.0) 08/29/19 19:00 RDW 15.9 % (11.6-15.6) H 08/29/19 19:00 Plt Count 287 K/MM3 (134-434) 08/29/19 19:00 MPV 8.4 fl (7.5-11.1) 08/29/19 19:00 Absolute Neuts (auto) 6.7 K/mm3 (1.5-8.0) 08/29/19 19:00 Neutrophils % 66.8 % (42.8-82.8) 08/29/19 19:00 Lymphocytes % 22.2 % (8-40) D 08/29/19 19:00 Monocytes % 8.8 % (3.8-10.2) 08/29/19 19:00 Eosinophils % 1.2 % (0-4.5) 08/29/19 19:00 Basophils % 1.0 % (0-2.0) 08/29/19 19:00 Nucleated RBC % 0 % (0-0) 08/29/19 19:00 Sodium 139 mmol/L (136-145) 08/29/19 19:00 Potassium 5.3 mmol/L (3.5-5.1) H 08/29/19 19:00 Chloride 108 mmol/L (98-107) H 08/29/19 19:00 Carbon Dioxide 24 mmol/L (21-32) 08/29/19 19:00 Anion Gap 6 MMOL/L (8-16) L 08/29/19 19:00 BUN 32.1 mg/dL (7-18) H 08/29/19 19:00 Creatinine 1.2 mg/dL (0.55-1.3) 08/29/19 19:00 Est GFR (CKD-EPI)AfAm 50.13 08/29/19 19:00 Est GFR (CKD-EPI)NonAf 43.25 08/29/19 19:00 Random Glucose 223 mg/dL (74-106) H 08/29/19 19:00 Calcium 9.2 mg/dL (8.5-10.1) 08/29/19 19:00 Total Bilirubin 0.1 mg/dL (0.2-1) L 08/29/19 19:00 AST 8 U/L (15-37) L 08/29/19 19:00 ALT 12 U/L (13-61) L 08/29/19 19:00 Alkaline Phosphatase 110 U/L (45-117) 08/29/19 19:00 Total Protein 6.8 g/dl (6.4-8.2) 08/29/19 19:00 Albumin 3.1 g/dl (3.4-5.0) L 08/29/19 19:00 Mild leukocytosis with nontoxic features ( no Fever, chills, vital signs stable) mild elevation in potassium without any EKG changes ( Diabetic ) BUN/Cr 32.1/1.2 most likely dehydrated, will encourage PO fluid intake Hyperglycemia (diabetic) Pt already on antibiotics, non toxic, upcoming appointment with Dr Hernandez for continuous care on tuesday08/31/2019. Pt safe for discharge with strict return precautions was she to delevop fever, chills, bleeding,chest pain, shortness of breath, please return to the emergency room immediately. Discharge - Discharge Information Problems reviewed: Yes Clinical Impression/Diagnosis: Cellulitis of right foot, Acute pain of right lower extremity Condition: Improved Disposition: HOME - Admission No - Follow up/Referral Referrals: Moi Valdivia MD [Primary Care Provider] - Alli Hernandez DO [Staff Physician] - Call tomorrow - Patient Discharge Instructions Patient Printed Discharge Instructions: DI for Cellulitis -- Adult Additional Instructions: Please return to the emergency department with any new or worsening symptoms or concerns. Please follow up with your primary care physician within 72 hours. Continue to take Tylenol as needed for pain every 6-8 hours. You should continue to take Keflex and clindamycin as directed daily. Follow up with Dr. Hernandez 08-31-19, as instructed. - Post Discharge Activity
--- NOTE | 2019-08-30 14:04 | EKG ---
Test Reason : Blood Pressure : / mmHG Vent. Rate : 094 BPM Atrial Rate : 094 BPM P-R Int : 092 ms QRS Dur : 070 ms QT Int : 324 ms P-R-T Axes : -17 054 269 degrees QTc Int : 405 ms POOR DATA QUALITY, INTERPRETATION MAY BE ADVERSELY AFFECTED SINUS RHYTHM WITH SHORT [place] ABNORMAL ECG WHEN COMPARED WITH ECG OF 04-MAR-2019 20:36, NO SIGNIFICANT CHANGE WAS FOUND Confirmed by RUPINDER CUEVAS, COLIN ([id number]) on 08/30/2019 2:03:32 PM Referred By: Confirmed By:COLIN BUCIO MD
== END 2019-08-29 21:12 | disposition home or self-care (01) ==
LOC: JER 17:04
DX: L03.115 Cellulitis of right lower limb (principal); M79.661 Pain in right lower leg; Z87.891 Personal history of nicotine dependence; F41.9 Anxiety disorder, unspecified; I10 Essential (primary) hypertension; E11.9 Type 2 diabetes mellitus without complications; E78.00 Pure hypercholesterolemia, unspecified
CPT/HCPCS: 36415; 80053; 85025; 93005; 93010; 99285-25

== ENCOUNTER 2020-03-05 15:24 | Inpatient (IN) | payer OTHER ==
--- NOTE | 2020-03-05 15:38 | PDOC ---
History of Present Illness - General Chief Complaint: Blood Sugar Problem Stated Complaint: LOW BLOOD SUGAR Time Seen by Provider: 03/05/20 15:38 History Source: Patient Exam Limitations: No Limitations - History of Present Illness Initial Comments: 03/05/20 15:38 Elza Wells is a Kiswahili-speaking 79F with PMH IDDM, HLD, nicotine dependence, right SFA and iliac stent placement, BIBA for reported dizziness and hypoglycemia. Per EMS called by patient's friend to evaluate, reported hypoglycemia and feeling dizzy. Arrived at house, BGM 60, given orange juice and increased to 90, brought to ED for evaluation. quality assurance monitor showed AFIB but no prior history. Patient reports IDDM with pills and injections of 10-20U insulin, does not know names of medicines. Checks BGM before meals and only takes insulin when sugar is high. This AM BGM 250, took 20U insulin. Ate breakfast, but did not eat lunch because she did not feel hungry. 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 Previously healthy, no chest pain, no SOB, no N/V, no C/D, no abd pain. Reports room-spinning dizziness that comes and goes, went away with eating. No sick contacts. PMD Skip, last seen one month ago Past History - Medical History Allergies/Adverse Reactions: Allergies Allergy/AdvReac Type Severity Reaction Status Date / Time No Known Allergies Allergy Verified 09/11/19 09:02 Home Medications: Ambulatory Orders Buspirone HCl [Buspar -] 5 mg PO BID 07/27/19 Cetirizine HCl [Allergy Relief] 10 mg PO DAILY 08/24/19 Acetaminophen [Tylenol .Extra-Strength -] 500 mg PO Q6H PRN tablet 09/27/19 Albuterol 2.5/Ipratropium 0.5 [Duoneb -] 1 amp NEB Q4H PRN amp 09/27/19 Amlodipine Besylate [Norvasc -] 5 mg PO DAILY #30 tablet 09/27/19 Apixaban [Eliquis -] 5 mg PO BID #60 tablet 09/27/19 Collagenase Clostridium Hist. [Santyl -] 1 applic TP DAILY #1 tube 09/27/19 Gabapentin [Neurontin -] 300 mg PO BID #60 capsule 09/27/19 Glimepiride [Glimepiride -] 2 mg PO DAILY #30 tablet 09/27/19 Insulin Detemir [Levemir Flextouch] 15 unit SQ AM #1 insuln.pen 09/27/19 Insulin Lispro [Humalog Kwikpen U-100] See Protocol SQ AC #1 insuln.pen 09/27/19 Iron Polysaccharides [Niferex-150 -] 150 mg PO DAILY #30 capsule 09/27/19 Mirtazapine [Remeron -] 1 tab PO HS #30 tablet 09/27/19 Sodium Zirconium Cyclosilicate [Lokelma] 5 gm PO DAILY #30 packet 09/27/19 traMADol HCL [Ultram -] 50 mg PO TID PRN #90 tablet MDD 3 09/27/19 COPD: No Diabetes: Yes GI Disorders: Yes (GERD) HTN: Yes Hypercholesterolemia: Yes Psychiatric Problems: Yes (ANXIETY) - Reproductive History Is Patient Now?: No - Immunization History Immunization Up to Date: No - Psycho-Social/Smoking History Smoking Status: Yes Smoking History: Smoker current status UNK Have you smoked in the past 12 months: No Number of Cigarettes Smoked Daily: 3 If you are a former smoker, when did you quit?: 1 year ago Information on smoking cessation initiated: No 'Breaking Loose' booklet given: 03/05/19 - Substance Abuse Hx (Audit-C & DAST Scrn) How often the patient has a drink containing alcohol: Never Score: In Men: 4 or > Positive; In Women: 3 or > Positive: 0 Screen Result (Pos requires Nsg. Audit-10AR): Negative In the last yr the pt used illegal drug/Rx for NonMed reason: No Score: Yes response is considered Positive: 0 Screen Result (Positive result requires Nsg. DAST-10): Negative Review of Systems - Review of Systems Able to Perform ROS?: Yes Constitutional: No: Symptoms Reported HEENTM: No: Blurred Vision, Double Vision Respiratory: No: Shortness of Breath, SOB with Exertion, SOB at Rest, Stridor, Wheezing Cardiac (ROS): No: Chest Pain, Palpitations, Syncope, Chest Tightness ABD/GI: Yes: Poor Appetite. No: Constipated, Diarrhea, Nausea, Poor Fluid Intake, Vomiting : No: Symptoms Reported Musculoskeletal: No: Symptoms Reported Integumentary: No: Symptoms Reported Neurological: Yes: Dizziness Endocrine: No: Symptoms Reported Hematologic/Lymphatic: No: Symptoms Reported All Other Systems: Reviewed and Negative *Physical Exam - Vital Signs Last Vital Signs Temp Pulse Resp BP Pulse Ox 97.2 F L 107 H 20 137/83 94 L 03/05/20 15:28 03/05/20 15:28 03/05/20 15:28 03/05/20 15:28 03/05/20 15:28 - Physical Exam General Appearance: Yes: Nourished, Appropriately Dressed, Thin, Other (resting in bed in NAD). No: Apparent Distress HEENT: positive: EOMI, MUNIRA, Normal Voice, Symmetrical, Pharynx Normal, Hearing Grossly Normal. negative: Scleral Icterus (R), Scleral Icterus (L), Pharyngeal Erythema, Tonsillar Exudate Neck: positive: Normal Thyroid, Supple. negative: Tender, Rigid, Lymphadenopathy (R), Lymphadenopathy (L), Rigidity, Tender lateral, Tender midline Respiratory/Chest: positive: Lungs Clear, Normal Breath Sounds. negative: Chest Tender, Respiratory Distress, Accessory Muscle Use, Crackles, Rales, Rhonchi, Stridor, Wheezing Cardiovascular: positive: Regular Rhythm, Tachycardia. negative: Murmur Gastrointestinal/Abdominal: positive: Normal Bowel Sounds, Flat, Soft. negative: Tender, Organomegaly, Pulsatile Mass Musculoskeletal: positive: Normal Inspection. negative: CVA Tenderness, CVA Tenderness (R), CVA Tenderness (L), Decreased Range of Motion, Vertebral Tenderness Extremity: positive: Normal Capillary Refill, Normal Inspection, Normal Range of Motion, Pelvis Stable. negative: Tender Integumentary: positive: Normal Color, Dry, Warm. 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 negative: Sensory Deficit ED Treatment Course - LABORATORY CBC & Chemistry Diagram: 03/05/20 17:00 03/05/20 17:00 Medical Decision Making - Medical Decision Making 03/05/20 15:38 Patient presents with complaint of dizziness and hypoglycemia, BGM 60 in the ED despite orange juice in the field, given more juice and a sandwich. Otherwise alert and oriented and appears well, in NAD, exam unremarkable. Mildly tachycardic to 106. ECG shows irregularly irregular rhythm with PVCs and TWI in lateral and inferior leads, HR 102, QTc 448, no JOSHUA/D, P waves sharp. Prior ECG in August 2019 also has PVCs but irregular morphology and peaked P waves a new finding. Patient denies any SOB or palpitations but still feels dizzy. Suspicion for hypoglycemia vs. ACS vs. metabolic cause. Evaluating with CBC/CMP/CP/ECG/CXR/TSH. Will plan to admit to Skip service for new onset AFIB and BGM/IDDM planning given patient is using insulin unscheduled and not eating. 03/05/20 17:52 Labs notable for: - WBC 17, unclear etiology, not dehydrated on CMP - BMP WNL - albumin 2.9 03/05/20 18:36 Unclear source for WBC, getting UA/UC now. Will admit to tele for metabolic disturbance and elevated WBC count 03/05/20 22:51 Discussed case with night team, admit to TELE under Dr. Farooq. Discharge - Discharge Information Problems reviewed: Yes Clinical Impression/Diagnosis: Dizziness, Hypoglycemia Condition: Stable - Admission Yes - Follow up/Referral - Patient Discharge Instructions - Post Discharge Activity
[2020-03-05 15:42] VITALS: BMI 16.9
[2020-03-05 17:18] LABS: BASO % 0.5 % (0-2.0); EOS % 0.4 % (0-4.5); HEMATOCRIT 46.9 % (32.4-45.2); LYMPH % 5.9 % (8-40); MCH 26.7 pg (25.7-33.7); MCHC 31.9 g/dl (32.0-36.0); MEAN CELL VOLUME 83.7 fl (80-96); MEAN PLT VOLUME 8.8 fl (7.5-11.1); MONO % 8.1 % (3.8-10.2); NEUT % 85.1 % (42.8-82.8); RDW 15.3 % (11.6-15.6); WHITE BLOOD COUNT 17.1 K/mm3 (4.0-10.0)
[2020-03-05 17:47] LABS: PLATELET COUNT 200 K/MM3 (134-434); PLATELET ESTIMATE DECREASED
[2020-03-05 18:18] LABS: ALBUMIN 2.9 g/dl (3.4-5.0); BILIRUBIN,TOTAL 0.4 mg/dL (0.2-1); BLOOD UREA NITROGEN 14.3 mg/dL (7-18); CALCIUM 9.1 mg/dL (8.5-10.1); CREATININE 1.1 mg/dL (0.55-1.3); POTASSIUM 3.8 mmol/L (3.5-5.1); TOT PROT 6.6 g/dl (6.4-8.2)
--- NOTE | 2020-03-05 18:24 | PDOC ---
Documentation entered by Jessie Dillard SCRIBE, acting as scribe for Bernardino Lovelace MD. Bernardino Lovelace MD: This documentation has been prepared by the keeibeNishant Ana, SCRIBE, under my direction and personally reviewed by me in its entirety. I confirm that the documentation accurately reflects all work, treatment, procedures, and medical decision making performed by me. Attending Attestation - Resident Resident Name: JessicascotKhari - ED Attending Attestation I have performed the following: I have examined & evaluated the patient, The case was reviewed & discussed with the resident, I agree w/resident's findings & plan, Exceptions are as noted - HPI HPI: 03/05/20 17:36 Patient is a 79 year old female with a significant past medical history of diabetes, hyperlipidemia, nicotine dependence, right SFA and iliac stent irish cement, who presents to the ED with dizziness and low blood sugar. Pt states that she was feeling dizzy today and checked her blood sugar and found it to be 60. pt drank orange juice, and her sugar increased to 90. She notes that she took 20u insulin this morning because her sugar was 250. She ate breakfast but skipped lunch afterwards. Pt now states she feels a bit better. Denies CP/SOB. Denies palpitations. Denies abdominal pain/N/V/D. Allergies: NKDA - Physicial Exam PE: 03/05/20 17:37 See resident exam. - Medical Decision Making 03/05/20 18:26 79 F with dizziness and low blood sugar. Likely due to taking insulin and not eating enough. However, pt's EKG today shows new ST depressions in lateral leads, will r/o ACS. Pt denies chest pain. - Labs, trop Discharge - Discharge Information Problems reviewed: Yes Clinical Impression/Diagnosis: Dizziness, Hypoglycemia, Abnormal EKG Condition: Stable - Follow up/Referral - Patient Discharge Instructions - Post Discharge Activity
--- NOTE | 2020-03-05 19:46 | PN ---
Teaching Attending Note Name of Resident: Barbara Wilson ATTENDING PHYSICIAN STATEMENT I saw and evaluated the patient. I reviewed the resident's note and discussed the case with the resident. I agree with the resident's findings and plan as documented. 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 Per EMS called by patient's friend to evaluate, reported hypoglycemia and feeling dizzy. Arrived at house, BGM 60, given orange juice and blood glucose increased to 90. engine monitor showed Afib - but no prior history. This morning BGM was 250 and she took 20U insulin. Ate breakfast, but did not eat lunch because she did not feel hungry. Has a chronic dry cough. Patient denies chest pain, shortness of breath, abdominal pain, headache, palpitations, fever, chills, nausea, vomiting, diarrhea, constipation, dysuria, frequency, urgency, melena, hematochezia or hematuria. Denies alcohol, tobacco or illicit drug use. No sick contacts or recent travels. Family history DM and CVA in her siblings. OBJECTIVE: Alert and not orthostatic Vital Signs Period Temp Pulse Resp BP Sys/Herrera Pulse Ox Last 24 Hr 97.2 F 107 20 137/83 94 HEENT: No Jaundice, eye redness or discharge, PERRLA, EOMI. Normocephalic, atraumatic. External ears are normal and hearing is grossly intact. No nasal discharge. Neck: Supple, nontender. No palpable adenopathy or thyromegaly. No JVD Chest: Good effort. Clear to auscultation and percussion. Heart: Irregularly irregular. No S3, rub or murmur Abdomen: Not distended, soft, nontender and no HSM. No rebound or guarding. Normal bowel sounds. Ext: Peripheral pulses intact. No leg edema. Skin: Warm and dry. No petechiae, rash or ecchymosis. Neuro: Alert. Oriented x3. CN 2-12 grossly intact. Sensation grossly intact in all four extremities and DTR are symmetric. Psych: Appropriate mood and affect. Good insight. Home Medications Medication Instructions Recorded Buspirone HCl [Buspar -] 5 mg PO BID 07/27/19 Cetirizine HCl [Allergy Relief] 10 mg PO DAILY 08/24/19 Acetaminophen [Tylenol 500 mg PO Q6H PRN tablet 09/27/19 .Extra-Strength -] Albuterol 2.5/Ipratropium 0.5 1 amp NEB Q4H PRN amp 09/27/19 [Duoneb -] Amlodipine Besylate [Norvasc -] 5 mg PO DAILY #30 tablet 09/27/19 Apixaban [Eliquis -] 5 mg PO BID #60 tablet 09/27/19 Collagenase Clostridium Hist. 1 applic TP DAILY #1 tube 09/27/19 [Santyl -] Gabapentin [Neurontin -] 300 mg PO BID #60 capsule 09/27/19 Glimepiride [Glimepiride -] 2 mg PO DAILY #30 tablet 09/27/19 Insulin Detemir [Levemir Flextouch] 15 unit SQ AM #1 insuln.pen 09/27/19 Insulin Lispro [Humalog Kwikpen See Protocol SQ AC #1 insuln.pen 09/27/19 U-100] Iron Polysaccharides [Niferex-150 150 mg PO DAILY #30 capsule 09/27/19 -] Mirtazapine [Remeron -] 1 tab PO HS #30 tablet 09/27/19 Sodium Zirconium Cyclosilicate 5 gm PO DAILY #30 packet 09/27/19 [Lokelma] traMADol HCL [Ultram -] 50 mg PO TID PRN #90 tablet MDD 3 09/27/19 Abnormal Lab Results 03/05/20 03/05/20 17:00 17:00 WBC 17.1 H RBC 5.60 H Hct 46.9 H D MCHC 31.9 L Absolute Neuts (auto) 14.5 H Neutrophils % 85.1 H Lymphocytes % 5.9 L D Anion Gap 7 L Random Glucose 65 L AST 13 L ALT 10 L Albumin 2.9 L Current Medications Generic Name Dose Route Start Last Admin Trade Name Freq PRN Reason Stop Dose Admin Apixaban 5 mg 03/05/20 23:15 Eliquis - PO BID EVER Buspirone HCl 5 mg 03/05/20 23:15 Buspar - PO BID EVER Gabapentin 300 mg 03/05/20 23:15 Neurontin - PO BID EVER Sodium Chloride 1,000 mls @ 50 mls/hr 03/05/20 23:00 Normal Saline - IV 03/06/20 18:59 ASDIR EVER Piperacillin Sod/Tazobactam 50 mls @ 100 mls/hr 03/05/20 23:15 Sod 3.375 gm/ Dextrose IVPB 03/06/20 23:14 Q8H-IV EVER Protocol Insulin Aspart 1 vial 03/06/20 07:00 Novolog Vial Sliding Scale - SQ ACHS EVER Protocol Metoprolol Succinate 25 mg 03/06/20 10:00 Toprol Xl - PO DAILY EVER Mirtazapine 15 mg 03/06/20 22:00 Remeron - PO HS EVER Vancomycin HCl 1,000 mg 03/05/20 23:14 Vancomycin (Pre-Docked) IVPB 03/05/20 23:15 ONCE ONE Protocol ASSESSMENT AND PLAN: 1. Dizziness/Hypoglycemia/?Rule out Sepsis - Dizziness may be due to hypoglycemia, but will rule out sepsis. Erythrocytosis and leukocytosis may signal paraneoplastic phenomenon - no indication that she is on steroids and her hemoglobin was 7.2 g/dL on 09/16/2019. Will get urinalysis stat, do sepsis work up and treat with IV Vancomycin, IV Zosyn and hydrate with IV NS. Consult ID and Oncology. CXR shows cardiomegaly, calcified aortic knob and right mediastinal mass. Viral testing for COVID-19 ordered and patient placed on airborne, droplet and contact isolation. Started on supplemental oxygen via nasal cannula. EKG shows sinus tachycardia at 102/minute with frequent PVCs and premature supraventricular complexes, biatrial enlargement and QTc [address] changes suggestive of inferolateral ischemia. Changed compared to prior EKG. Initial troponin is negative. Will treat with Torpol XL 25 mg qd, admit to telemetry, trend troponin, repeat EKG, get ECHO, do neurochecks and implement fall precautions. Consult Cardiology/PT.Will continue comprehensive care for all of patients comorbid conditions including Eliquis for arterial stents. 2. Protein calorie malnutrition/Hypoalbuminemia - Hypoalbuminemia possibly due to combined effects of malnutrition and inflammation associated with comorbid conditions. Will ensure adequate dietary protein intake and also consult steel layer. Urinalysis pending. 3. DM For now, we will hold the home diabetes drugs and implement sliding scale insulin regimen. Provide comprehensive diabetes care with patient teaching and counseling about the importance of adherence to prescribed diabetes regimen, euglycemia, eye care and foot care. 4. Tobacco Use Counseled on risks associated with tobacco use. We will provide patient all the necessary assistance to facilitate smoking cessation and prescribe Nicotine patch. 5. Hypertension Will hold Amlodipine and give Toprol XL 25 mg qd. Get urine protein/creatinine ratio. Subsequently, will revise regimen - add ACEI/ARB -to ensure [id number] excellent BP control. Patient counseled on the injurious effects of uncontrolled hypertension. Nonpharmacologic measures to control hypertension like weight loss, salt restriction and exercise stressed. Importance of adherence to treatment regimen and attainment of normotension emphasized. 6. DVT prophylaxis - On Eliquis. 7. Advance directives - Full code
[2020-03-05] MEDS ORDERED: SODIUM CHLORIDE 1,000 ML IV SCH (23:00)
[2020-03-05] MEDS ORDERED: VANCOMYCIN 1 GM in D5W (PRE-DOCKED) 1,000 MG/250 ML IVPB ONE (23:14)
[2020-03-05] MEDS ORDERED: VANCOMYCIN 1 GRAM (PRE-DOCKED) 1,000 MG/250 ML BAG IVPB ONE ×2 (23:45→23:47)
[2020-03-05] MEDS ORDERED: APIXABAN 5 MG TABLET ONE (23:46)
[2020-03-05] MEDS ORDERED: busPIRone HCL 5 MG TABLET ONE (23:47)
[2020-03-05] MEDS ORDERED: PIPERACILLIN/TAZOB 3.375 GM 3.375 GM/50 ML BAG IVPB ONE (23:47)
[2020-03-05] MEDS ORDERED: GABAPENTIN 100 MG CAPSULE ONE (23:47)
[2020-03-05 23:54] LABS: EPI CELLS >36 /uL (0-25.1); HYALINE CASTS 2 /uL (0-3.1); PH,URINE 7.5 (5.0-8.0); URINE APPEARANCE CLEAR; URINE BACTERIA 237 /uL (0-1359); URINE BILIRUBIN NEGATIVE (NEGATIVE); URINE COLOR YELLOW; URINE GLUCOSE (UA) TRACE (NEGATIVE); URINE KETONE NEGATIVE (NEGATIVE); URINE LEUK ESTERASE NEGATIVE (NEGATIVE); URINE NITRITE NEGATIVE (NEGATIVE); URINE PROTEIN 4+ (NEGATIVE); URINE UROBILINOGEN 0.2 mg/dL (0.2-1.0); URINE WBC 8 /uL (0-25.8)
[2020-03-05 23:55] LABS: URINE RBC 31.6 /uL (0-23.9)
[2020-03-06] MEDS: APIXABAN 5 MG TABLET PO SCH ×3 (00:04→21:49)
[2020-03-06] MEDS: GABAPENTIN 300 MG CAPSULE PO SCH ×3 (00:04→21:49)
[2020-03-06] MEDS: PIPERACILLIN/TAZOB 3.375 GM 3.375 GM in DEXTROSE 5%-WATER - 50 ML IVPB SCH ×3 (00:04→09:22)
[2020-03-06] MEDS: busPIRone HCL 5 MG TABLET PO SCH ×3 (00:04→21:48)
--- NOTE | 2020-03-06 04:14 | HP ---
CHIEF COMPLAINT: I felt dizzy and my sugars were high PCP: HISTORY OF PRESENT ILLNESS: 79yo F with PMHx of DM, HLD, active smoker, PVD (s/p stent in R superior femoral and iliac artery), anxiety, and recent diagnosis of lung SCC (patient is unaware of diagnosis) who presented with dizziness and hypoglycemia. Patient felt a bit dizzy this morning. When she checked her blood glucose it was 250 so she took her insulin which she only takes PRN. She continued to feel dizzy so she sat down to assure no falls and called her friend who called EMS for her. When seen she felt back to her normal self and said that she wouldn't mind going home. She said this same thing happened about two years ago but she did not come into the hospital because she felt better faster. Endorsed diaphoresis, chronic intermittent cough, and L foot pain, but denied any other associated symptoms. Seems to also have a diagnosis of HTN but patient said that she has never received a diagnosis of HTN or any other cardiovascular pathology. 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 ER course was notable for: (1) P 107, glucose 65, WBC 17.1, Hct 46.9 (2) CXR showed a R hilar mass that has increased in size (3) EKG showed sinus tachycardia with frequent premature supraventricular complexes Recent Travel: none PAST MEDICAL HISTORY: as per HPI PAST SURGICAL HISTORY: none Social History: Smokinppd since 15yo, recently decreased to 2 cigs/day Alcohol: denied Drugs: denied Work: [email or web address] Home: lives alone but has a helper that comes 4h/day every day Allergies No Known Allergies Allergy (Verified 09/11/19 09:02) HOME MEDICATIONS: Home Medications Medication Instructions Recorded Buspirone HCl [Buspar -] 5 mg PO BID 07/27/19 Cetirizine HCl [Allergy Relief] 10 mg PO DAILY 08/24/19 Acetaminophen [Tylenol 500 mg PO Q6H PRN tablet 09/27/19 .Extra-Strength -] Albuterol 2.5/Ipratropium 0.5 1 amp NEB Q4H PRN amp 09/27/19 [Duoneb -] Amlodipine Besylate [Norvasc -] 5 mg PO DAILY #30 tablet 09/27/19 Apixaban [Eliquis -] 5 mg PO BID #60 tablet 09/27/19 Collagenase Clostridium Hist. 1 applic TP DAILY #1 tube 09/27/19 [Santyl -] Gabapentin [Neurontin -] 300 mg PO BID #60 capsule 09/27/19 Glimepiride [Glimepiride -] 2 mg PO DAILY #30 tablet 09/27/19 Insulin Detemir [Levemir Flextouch] 15 unit SQ AM #1 insuln.pen 09/27/19 Insulin Lispro [Humalog Kwikpen See Protocol SQ AC #1 insuln.pen 09/27/19 U-100] Iron Polysaccharides [Niferex-150 150 mg PO DAILY #30 capsule 09/27/19 -] Mirtazapine [Remeron -] 1 tab PO HS #30 tablet 09/27/19 Sodium Zirconium Cyclosilicate 5 gm PO DAILY #30 packet 09/27/19 [Lokelma] traMADol HCL [Ultram -] 50 mg PO TID PRN #90 tablet MDD 3 09/27/19 REVIEW OF SYSTEMS as per HPI PHYSICAL EXAMINATION Vital Signs - 24 hr 03/05/20 03/06/20 15:28 01:56 Temperature 97.2 F L Pulse Rate 107 H Pulse Rate [ 84 Apical] Respiratory 20 22 H Rate Blood Pressure 137/83 Blood Pressure 165/77 [Left Arm] O2 Sat by Pulse 94 L 98 Oximetry (%) GENERAL: F, cachectic body habitus, AAOx4 showing no signs of acute distress HEAD: Normal with no signs of trauma, poor dentition EYES: PERRL, direct and consensual pupillary reflexes intact bilaterally, extraocular movements intact bilaterally EARS, NOSE, THROAT: dry mucous membranes. NECK: Normal range of motion, supple without lymphadenopathy, JVD, or masses. LUNGS: CTAB. No wheezes, and no crackles. No accessory muscle use. HEART: irregularly irregular, S1 and S2 without murmur ABDOMEN: Soft, nontender, not distended vs protuberant, normoactive bowel sounds EXTREMITIES: 2+ radial and dorsalis pedis pulses, warm to touch bilaterally, nontender to palpation, no peripheral edema appreciated NEUROLOGICAL: Cranial nerves II-XII grossly intact. Normal speech with symmetricalfacial movements. Normal gait. PSYCHIATRIC: Cooperative and interactive, responds appropriately. Good eye contact. Good mood and affect congruent with stated mood SKIN: Warm, dry, normal turgor, no rashes or lesions noted, normal capillary refill. Laboratory Results - last 24 hr 03/05/20 03/05/20 03/05/20 15:38 17:00 17:00 WBC 17.1 H RBC 5.60 H Hgb 15.0 Hct 46.9 H D MCV 83.7 MCH 26.7 MCHC 31.9 L RDW 15.3 D Plt Count 200 D MPV 8.8 D Absolute Neuts (auto) 14.5 H Neutrophils % 85.1 H Lymphocytes % 5.9 L D Monocytes % 8.1 Eosinophils % 0.4 D Basophils % 0.5 Nucleated RBC % 0 Platelet Estimate Decreased Platelet Comment Rare giant plts Sodium 139 Potassium 3.8 Chloride 102 Carbon Dioxide 30 Anion Gap 7 L BUN 14.3 Creatinine 1.1 Est GFR (CKD-EPI)AfAm 55.30 Est GFR (CKD-EPI)NonAf 47.71 POC Glucometer 61 Random Glucose 65 L Lactic Acid Calcium 9.1 Total Bilirubin 0.4 AST 13 L ALT 10 L Alkaline Phosphatase 102 Creatine Kinase 33 Troponin I 0.02 Total Protein 6.6 Albumin 2.9 L TSH 0.91 Urine Color Urine Appearance Urine pH Ur Specific Tripp Urine Protein Urine Glucose (UA) Urine Ketones Urine Blood Urine Nitrite Urine Bilirubin Urine Urobilinogen Ur Leukocyte Esterase Urine WBC (Auto) Urine RBC (Auto) Urine Casts (Auto) U Epithel Cells (Auto) Urine Bacteria (Auto) 03/05/20 03/05/20 03/06/20 20:34 23:05 02:00 WBC RBC Hgb Hct MCV MCH MCHC RDW Plt Count MPV Absolute Neuts (auto) Neutrophils % Lymphocytes % Monocytes % Eosinophils % Basophils % Nucleated RBC % Platelet Estimate Platelet Comment Sodium Potassium Chloride Carbon Dioxide Anion Gap BUN Creatinine Est GFR (CKD-EPI)AfAm Est GFR (CKD-EPI)NonAf POC Glucometer 294 Random Glucose Lactic Acid 0.9 Calcium Total Bilirubin AST ALT Alkaline Phosphatase Creatine Kinase Troponin I Total Protein Albumin TSH Urine Color Yellow Urine Appearance Clear Urine pH 7.5 D Ur Specific Tripp 1.009 L Urine Protein 4+ H Urine Glucose (UA) Trace Urine Ketones Negative Urine Blood Trace Urine Nitrite Negative Urine Bilirubin Negative Urine Urobilinogen 0.2 Ur Leukocyte Esterase Negative Urine WBC (Auto) 8 Urine RBC (Auto) 31.6 Urine Casts (Auto) 2 U Epithel Cells (Auto) >36 Urine Bacteria (Auto) 237 ASSESSMENT/PLAN: 79yo F with PMHx of DM, HLD, active smoker, PVD (s/p stent in R superior femoral and iliac artery), anxiety, and recent diagnosis of lung SCC (patient is unaware of diagnosis) who presented with dizziness and hypoglycemia. ED workup was remarkable for P 107, glucose 65, WBC 17.1, Hct 46.9. CXR showed a R hilar mass that has increased in size, and EKG showed sinus tachycardia with frequent premature supraventricular complexes. #dizziness likely 2/2 hypoglycemia - holding home DM meds - ISS - BGMs ACHS - orthostatics - fall precautions #Leukocytosis in setting of tachycardia, dizziness, hypoglycemia, and immunocompromised state - ediology unclear (?paraneoplastic syndrome, ?lymphoma) - patient started on vanc and zosyn - UA, urine cx, and blood cx ordered stat - ordered lactic acid - ID consulted #sinus tachycardia with frequent premature supraventricular complexes - etiology and acuity unclear - cardio consult - repeat trop - started metoprolol 25 daily - can increased to BID if clinically indicated #lung SCC likely 2/2 long-term tobacco use - patient deserves to be informed - HemeOnc consulted #peripheral vascular disease likely due to combination of HTN, DM, and long-term tobacco use - continue home eliquis due to recent stents placement - continue home gabapentin for leg pain #anxiety - continue home buspirone and mirtazapine #HTN - patient does not know that she has hypertension despite antihypertensive med use - hold home amlodipine - started on metoprolol 25 daily #FEN - one bag of 50cc/h NS - replete lytes PRN - diabetic diet with added ensure #PPX - DVT: eliquis #Dispo: Telemetry Family Medical History Family History: As Documented Visit type - Medication Review Med list reviewed for High Risk Meds patients 65 and older: Yes - Emergency Visit Emergency Visit: Yes ED Registration Date: 03/05/20 Care time: The patient presented to the Emergency Department on the above date and was hospitalized for further evaluation of their emergent condition. - New Patient This patient is new to me today: Yes Date on this admission: 03/06/20 - Critical Care Critical Care patient: No ATTENDING PHYSICIAN STATEMENT I saw and evaluated the patient. I reviewed the resident's note and discussed the case with the resident. I agree with the resident's findings and plan as documented. SUBJECTIVE: OBJECTIVE: ASSESSMENT AND PLAN:
[2020-03-06] MEDS ORDERED: PIPERACILLIN/TAZOB 3.375 GM 3.375 GM/50 ML BAG IVPB ONE ×2 (06:09→09:11)
[2020-03-06 07:37] LABS: ALBUMIN 2.5 g/dl (3.4-5.0); BILIRUBIN,TOTAL 0.5 mg/dL (0.2-1); BLOOD UREA NITROGEN 11.8 mg/dL (7-18); CALCIUM 8.7 mg/dL (8.5-10.1); MAGNESIUM 1.6 mg/dL (1.8-2.4); PHOSPHOROUS 3.1 mg/dL (2.5-4.9); POTASSIUM 4.2 mmol/L (3.5-5.1); TOT PROT 6.1 g/dl (6.4-8.2)
[2020-03-06 08:17] LABS: BASO % 0.6 % (0-2.0); HEMATOCRIT 44.9 % (32.4-45.2); HEMOGLOBIN 14.2 GM/dL (10.7-15.3); LYMPH % 6.2 % (8-40); MCH 26.7 pg (25.7-33.7); MCHC 31.7 g/dl (32.0-36.0); MEAN CELL VOLUME 84.4 fl (80-96); MEAN PLT VOLUME 8.5 fl (7.5-11.1); MONO % 9.2 % (3.8-10.2); PLATELET COUNT 184 K/MM3 (134-434); RBC 5.32 M/mm3 (3.60-5.2); RDW 15.4 % (11.6-15.6); WHITE BLOOD COUNT 11.5 K/mm3 (4.0-10.0)
[2020-03-06] MEDS: INSULIN SLIDING SCALE (NOVOLOG) 1 VIAL SQ SCH ×4 (08:52→21:55)
[2020-03-06] MEDS ORDERED: APIXABAN 5 MG TABLET ONE (09:10)
[2020-03-06] MEDS ORDERED: metoPROLOL SUCCINATE 25 MG TAB.SR.24H (FP) ONE (09:11)
[2020-03-06] MEDS ORDERED: busPIRone HCL 5 MG TABLET ONE (09:11)
[2020-03-06] MEDS: metoPROLOL SUCCINATE 25 MG TAB.SR.24H (FP) PO SCH (09:22)
--- NOTE | 2020-03-06 09:53 | EKG ---
Test Reason : Blood Pressure : / mmHG Vent. Rate : 102 BPM Atrial Rate : 102 BPM P-R Int : 126 ms QRS Dur : 072 ms QT Int : 344 ms P-R-T Axes : 071 016 268 degrees QTc Int : 448 ms SINUS TACHYCARDIA WITH PREMATURE SUPRAVENTRICULAR COMPLEXES AND WITH FREQUENT PREMATURE VENTRICULAR COMPLEXES BIATRIAL ENLARGEMENT MARKED ST ABNORMALITY, POSSIBLE INFERIOR SUBENDOCARDIAL INJURY ABNORMAL ECG WHEN COMPARED WITH ECG OF 14-SEP-2019 16:46, PREMATURE VENTRICULAR COMPLEXES ARE NOW PRESENT PREMATURE SUPRAVENTRICULAR COMPLEXES ARE NOW PRESENT ST NOW DEPRESSED IN INFERIOR LEADS INVERTED T WAVES HAVE REPLACED NONSPECIFIC T WAVE ABNORMALITY IN ANTERIOR LEADS Confirmed by COLIN BUCIO MD ([id number]) on 03/06/2020 9:53:35 AM Referred By: Confirmed By:COLIN BUCIO MD
--- NOTE | 2020-03-06 10:02 | PN ---
Progress Note, Physician History of Present Illness: 79yo F with PMHx of DM, HLD, active smoker, PVD (s/p stent in R superior femoral and iliac artery), anxiety, and recent diagnosis of lung SCC (patient is unaware of diagnosis) who presented with dizziness and hypoglycemia. ED workup was remarkable for P 107, glucose 65, WBC 17.1, Hct 46.9. CXR showed a R hilar mass that has increased in size, and EKG showed sinus tachycardia with frequent premature supraventricular complexes. - Current Medication List Current Medications: Active Medications Apixaban (Eliquis -) 5 mg PO BID [facility] Last Admin: 03/06/20 09:22 Dose: 5 mg Documented by: Buspirone HCl (Buspar -) 5 mg PO BID [facility] Last Admin: 03/06/20 09:22 Dose: 5 mg Documented by: Gabapentin (Neurontin -) 300 mg PO BID [facility] Last Admin: 03/06/20 09:22 Dose: 300 mg Documented by: Sodium Chloride (Normal Saline -) 1,000 mls @ 50 mls/hr IV ASDIR EVER Stop: 03/06/20 18:59 Last Admin: 03/05/20 23:34 Dose: 50 mls/hr Documented by: Piperacillin Sod/Tazobactam (Sod 3.375 gm/ Dextrose) 50 mls @ 100 mls/hr IVPB Q8H-IV EVER; Protocol Stop: 03/06/20 23:14 Piperacillin Sod/Tazobactam (Sod 3.375 gm/ Dextrose) 50 mls @ 100 mls/hr IVPB Q8H-IV EVER; Protocol Stop: 03/06/20 18:29 Last Admin: 03/06/20 09:22 Dose: 100 mls/hr Documented by: Insulin Aspart (Novolog Vial Sliding Scale -) 1 vial SQ ACHS [facility]; Protocol Last Admin: 03/06/20 08:52 Dose: 4 unit Documented by: Metoprolol Succinate (Toprol Xl -) 25 mg PO DAILY [facility] Last Admin: 03/06/20 09:22 Dose: 25 mg Documented by: Mirtazapine (Remeron -) 15 mg PO HS [facility] - Objective Vital Signs: Vital Signs Temperature 97.9 F 03/06/20 07:20 Pulse Rate 89 03/06/20 07:20 Respiratory Rate 25 H 03/06/20 07:20 Blood Pressure 155/80 03/06/20 07:20 O2 Sat by Pulse Oximetry (%) 100 03/06/20 07:20 Cardiovascular: Yes: S1, S2 Respiratory: Yes: On Nasal O2, Rhonchi Gastrointestinal: Yes: Normal Bowel Sounds, Soft Neurological: Yes: Alert, Oriented, Weakness Labs: CBC, BMP 03/06/20 08:05 03/06/20 06:10 Problem List - Problems (1) Dizziness Assessment/Plan: - holding home DM meds - ISS - BGMs ACHS - orthostatics - fall precautions -Tele -Cardio Code(s): R42 - DIZZINESS AND GIDDINESS (2) Hypoglycemia Assessment/Plan: Laboratory Tests 03/05/20 03/05/20 03/06/20 15:38 20:34 07:21 POC Glucometer 61 294 219 endo consult Code(s): E16.2 - HYPOGLYCEMIA, UNSPECIFIED (3) Hypertension Assessment/Plan: - hold home amlodipine - started on metoprolol 25 daily Code(s): I10 - ESSENTIAL (PRIMARY) HYPERTENSION Qualifiers: Hypertension type: essential hypertension Qualified Code(s): I10 - Essential (primary) hypertension (4) Type 2 diabetes mellitus Assessment/Plan: hold meds bgm endo Code(s): E11.9 - TYPE 2 DIABETES MELLITUS WITHOUT COMPLICATIONS Qualifiers: Diabetes mellitus complication status: with skin complications Diabetes mellitus complication detail: with foot ulcer Qualified Code(s): E11.621 - Type 2 diabetes mellitus with foot ulcer (5) Leucocytosis Assessment/Plan: - patient started on vanc and zosyn - UA, urine cx, and blood cx ordered stat - ordered lactic acid - ID consulted Code(s): D72.829 - ELEVATED WHITE BLOOD CELL COUNT, UNSPECIFIED (6) Squamous cell carcinoma of lungs, bilateral Assessment/Plan: - HemeOnc consulted #peripheral vascular disease likely due to combination of HTN, DM, and long-term tobacco use - continue home eliquis due to recent stents placement - continue home gabapentin for leg pain #anxiety - continue home buspirone and mirtazapine #HTN - patient does not know that she has hypertension despite antihypertensive med use - hold home amlodipine - started on metoprolol 25 daily #FEN - one bag of 50cc/h NS - replete lytes PRN - diabetic diet with added ensure #PPX - DVT: eliquis #Dispo: Telemetry Code(s): C34.91 - MALIGNANT NEOPLASM OF UNSP PART OF RIGHT BRONCHUS OR LUNG; C34.92 - MALIGNANT NEOPLASM OF UNSP PART OF LEFT BRONCHUS OR LUNG (7) Peripheral vascular disease Assessment/Plan: - continue home eliquis due to recent stents placement - continue home gabapentin for leg pain Code(s): I73.9 - PERIPHERAL VASCULAR DISEASE, UNSPECIFIED (8) Tachycardia Assessment/Plan: -sinus tachycardia with frequent premature supraventricular complexes - - cardio consult - repeat trop - metoprolol 25 daily Code(s): R00.0 - TACHYCARDIA, UNSPECIFIED
--- NOTE | 2020-03-06 12:14 | CON.CARD ---
Consult Consult Specialty:: Cardiology Referred by:: Dr. Chong Reason for Consultation:: Sinus tach with apcs - History of Present Illness Chief Complaint: dizziness History of Present Illness: 79 year old woman with pmh HLD, DMII, smoker, PAD s/p OFFICE HELPER R SFA and iliac artery, recently dx Lung Ca, admitted with c/o dizziness, noted to be hypoglycemic. pt noted to have mild sinus tachycardia with frequent apcs. pt seen and examined today in nad. states she is feeling better. denies having had any chest pain, sob, or palpitations. no pnd, orthopnea, or LE edema. - History Source History Provided By: Patient, Medical Record Limitations to Obtaining History: No Limitations - Past Medical History Cardio/Vascular: Yes: HTN, Hyperlipdemia. No: AFIB Pulmonary: Yes: COPD. No: O2 Dependent Gastrointestinal: Yes: GERD. No: Ascites ...: No Endocrine: Yes: Diabetes Mellitus - Alcohol/Substance Use Hx Alcohol Use: No History of Substance Use: reports: None - Smoking History Smoking history: Smoker current status UNK Have you smoked in the past 12 months: No Aproximately how many cigarettes per day: 3 If you are a former smoker, when did you quit?: 1 year ago - Social History Usual Living Arrangement: Alone ADL: Independent History of Recent Travel: No Home Medications - Allergies Allergies/Adverse Reactions: Allergies Allergy/AdvReac Type Severity Reaction Status Date / Time No Known Allergies Allergy Verified 09/11/19 09:02 - Home Medications Home Medications: Ambulatory Orders Buspirone HCl [Buspar -] 5 mg PO BID 07/27/19 Cetirizine HCl [Allergy Relief] 10 mg PO DAILY 08/24/19 Acetaminophen [Tylenol .Extra-Strength -] 500 mg PO Q6H PRN tablet 09/27/19 Albuterol 2.5/Ipratropium 0.5 [Duoneb -] 1 amp NEB Q4H PRN amp 09/27/19 Amlodipine Besylate [Norvasc -] 5 mg PO DAILY #30 tablet 09/27/19 Apixaban [Eliquis -] 5 mg PO BID #60 tablet 09/27/19 Collagenase Clostridium Hist. [Santyl -] 1 applic TP DAILY #1 tube 09/27/19 Gabapentin [Neurontin -] 300 mg PO BID #60 capsule 04/02/20 Glimepiride [Glimepiride -] 2 mg PO DAILY #30 tablet 09/27/19 Insulin Detemir [Levemir Flextouch] 15 unit SQ AM #1 insuln.pen 09/27/19 Insulin Lispro [Humalog Kwikpen U-100] See Protocol SQ AC #1 insuln.pen 09/27/19 Iron Polysaccharides [Niferex-150 -] 150 mg PO DAILY #30 capsule 09/27/19 Mirtazapine [Remeron -] 1 tab PO HS #30 tablet 09/27/19 Sodium Zirconium Cyclosilicate [Lokelma] 5 gm PO DAILY #30 packet 09/27/19 traMADol HCL [Ultram -] 50 mg PO TID PRN #90 tablet MDD 3 09/27/19 Family Medical History Family History: Denies Review of Systems - Review of Systems Constitutional: denies: No Symptoms, Chills, Diaphoresis, Fever, Lethargy, Loss of Appetite, Malaise, Night Sweats, Unintentional Wgt. Loss, Weakness, Other Eyes: denies: No Symptoms, Blind Spots, Blurred Vision, Double Vision, Eye Pain, Floaters, Photophobia, Recent Change in Vision, Other HENT: denies: No Symptoms, Difficult Swallowing, Ear Discharge, Ear Pain, Epistaxis, Gingival Bleeding, Hearing Loss, Mouth Swelling, Nasal Congestion, Ocular Prosthesis, Throat Pain, Toothache, Ringing in Ears, Other Neck: denies: No Symptoms, Decreased ROM, Lumps, Pain on Movement, Stiffness, Swollen Glands, Tenderness, Other Cardiovascular: denies: No Symptoms, Chest Pain, Edema, Palpitations, Shortness of Breath, Other Respiratory: denies: No Symptoms, Cough, Exercise Intolerance, Hemoptysis, Orthopnea, PND, Snoring, SOB, SOB on Exertion, Wheezing, Other Gastrointestinal: denies: No Symptoms, Abdominal Pain, Bloating, Constipation, Diarrhea, Dysphagia, Indigestion, Melena, Nausea, Rectal Bleeding, Vomiting, Vomiting Blood, Other Genitourinary: denies: No Symptoms, Burning, Discharge, Dysuria, Flank Pain, Frequency, Hematuria, Incontinence, Lesions, Menses, Pain, Testicular Mass, Testicular Pain, Testicular Swelling, Urgency, Vaginal Bleeding, Other Breasts: denies: No Symptoms Reported, See HPI, Breast Implants, Discharge from Nipple, Lumps, Pain, Skin Changes, Other Musculoskeletal: denies: No Symptoms, Back Pain, Crepitus, Decreased ROM, Extremity Pain, Joint Pain, Joint Swelling, Muscle Pain, Muscle Cramps, Muscle Weakness, Other Integumentary: denies: No Symptoms, Blister, Bruising, Change in Color, Eczema, Erythema, Incision, Lesions, Lump, Pallor, Pruritis, Rash, Wound, Other Neurological: reports: Dizziness. denies: No Symptoms, Change in LOC, Change in Speech, Confusion, Headache, Incoordination, Numbness, Parasthesia, Pre-Existing Deficit, Seizure, Syncope, Tremors, Unsteady Gait, Weakness, Other Endocrine: denies: No Symptoms, Excessive Sweating, Flushing, Increased Hunger, Increased Thirst, Intolerance to Cold, Intolerance to Heat, Unexplained Weight Gain, Unexplained Weight Loss, Other Hematology/Lymphatic: denies: No Symptoms, Easily Bruised, Excessive Bleeding, Swollen Glands, Other Psychiatric: denies: No Symptoms, Altered Sleep Pattern, Anxiety, Depression, Hallucinations, Panic, Paranoia, Suicidal, Other - Risk Factors Known Risk Factors: Yes: Age, Hypercholesterolemia, Hypertension Vital Signs: Vital Signs Temperature 98.3 F 03/06/20 11:34 Pulse Rate 72 03/06/20 11:34 Respiratory Rate 25 H 03/06/20 07:20 Blood Pressure 150/85 03/06/20 11:34 O2 Sat by Pulse Oximetry (%) 96 03/06/20 11:34 Constitutional: Yes: No Distress, Calm Eyes: Yes: Conjunctiva Clear, EOM Intact HENT: Yes: Atraumatic, Normocephalic Neck: Yes: Supple, Trachea Midline Respiratory: Yes: Regular, CTA Bilaterally. No: Rales, Rhonchi, SOB, Wheezes Gastrointestinal: Yes: Normal Bowel Sounds, Soft. No: Distention, Tenderness Cardiovascular: Yes: Regular Rate and Rhythm. No: Bradycardia, Tachycardia, Pulse Irregular, Gallop, Rub, Varicosities JVD: No Carotid Bruit: No PMI: Non-Displaced Heart Sounds: Yes: S1, S2. No: Split S2, S3, S4, Clicks, Gallop, Rub, Bruit Murmur: No: Systolic Murmur, Diastolic Murmur Musculoskeletal: Yes: WNL Extremities: Yes: WNL Edema: No Peripheral Pulses WNL: Yes Peripheral Pulses: 2+ Left Doralis Pedis, 2+ Right Dorsalis Pedis Neurological: Yes: Alert, Oriented Psychiatric: Yes: Alert, Oriented - Other Data Labs, Other Data: CBC, BMP 03/06/20 08:05 03/06/20 06:10 Troponin, BNP 03/05/20 17:00 Troponin I 0.02 Troponin, BNP 03/05/20 17:00 Troponin I 0.02 sinus tach 102bpm, frequent apcs, pvcs, ST depressions inferior leads Imaging - Results Chest X-ray: Report Reviewed, Image Reviewed EKG: Report Reviewed, Image Reviewed Other: Report Reviewed, Image Reviewed (tele-sinus rhythm, apcs, pvcs) Assessment/Plan 79 year old woman with pmh HLD, DMII, smoker, PAD s/p OFFICE HELPER R SFA and iliac prieto ry, recently dx Lung Ca, admitted with c/o dizziness, noted to be hypoglycemic. pt noted to have mild sinus tachycardia with frequent apcs. pt seen and examined today in nad. states she is feeling better. denies having had any chest pain, sob, or palpitations. no pnd, orthopnea, or LE edema. tachycardia -mild sinus tach -apcs and pvcs noted, asymptomatic -no documented evidence of afib (there was some report of afib in the chart possibly by EMS but no documentation-suspect it was actually sinus with frequent apcs which has been seen since coming to ER) -if can recover rhythm strips from EMS would be helpful -[facility] -would not start AC without evidence of afib -tachycardia was in the setting of hypoglycemia -does not require bblocker for this and may mask symptoms of hypoglycemia -remainder of cardiac work up can be done as outpatient
--- NOTE | 2020-03-06 13:24 | CONSULT ---
Consultation: REQUESTING PROVIDER: Dr. Valdivia CONSULT REQUEST: We have been asked to medically evaluate this patient for lung ca. 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 Patient leaves by herself at home and has a health aide that comes in 4 hours a day. Patient reported she was feeling weak and dizzy and unable to walk, that she asked her neighbor to call 911. When EMS arrived, patient was found to be hypoglycemic with BGM of 60 where she was given orange juice, and reported to have Afib on media monitor. Patient reports feeling better this morning, denies chest pain, shortness of breath, abdominal pain, headache, palpitations, fever, chills, nausea, vomiting, diarrhea, constipation, dysuria, frequency, urgency, melena, hematochezia or hematuria. Patient was admitted in August where she was found to have RUL mass and right lobe liver lesion. Patient underwent biopsy of the RUL lung mass which revealed poorly differentiated squamous cell carcinoma with necrosis. Patient was not able to follow up since discharge. PMHx: HTN, Insulin-treated DM, HLD, Tobacco use, Anxiety, Right lung poorly d ifferentiated squamous cell carcinoma (s/p lung and liver biopsy 08/2019 - patient unaware of cancer diagnosis), Protein calorie malnutrition PSHx: Right saphenous artery and iliac stent placement (on ELiquis) Allergies:NKDA FHx: DM and CVA in her siblings. SHx: current everyday smoker, denies etoh drinking, denies illicit drug use REVIEW OF SYSTEMS: CONSTITUTIONAL: Absent: fever, chills, diaphoresis, generalized weakness, malaise, loss of appetite, weight change HEENT: Absent: rhinorrhea, nasal congestion, throat pain, throat swelling, difficulty swallowing, mouth swelling, ear pain, eye pain, visual changes CARDIOVASCULAR: Absent: chest pain, syncope, palpitations, irregular heart rate, lightheadedness, peripheral edema RESPIRATORY: Absent: cough, shortness of breath, dyspnea with exertion, orthopnea, wheezing, stridor, hemoptysis GASTROINTESTINAL: Absent: abdominal pain, abdominal distension, nausea, vomiting, diarrhea, constipation, melena, hematochezia GENITOURINARY: Absent: dysuria, frequency, urgency, hesitancy, hematuria, flank pain, genital pain MUSCULOSKELETAL: Absent: myalgia, arthralgia, joint swelling, back pain, neck pain SKIN: Absent: rash, itching, pallor HEMATOLOGIC/IMMUNOLOGIC: Absent: easy bleeding, easy bruising, lymphadenopathy, frequent infections ENDOCRINE: Absent: unexplained weight gain, unexplained weight loss, heat intolerance, cold intolerance NEUROLOGIC: Absent: headache, focal weakness or paresthesias, dizziness, unsteady gait, seizure, mental status changes, bladder or bowel incontinence PSYCHIATRIC: Absent: anxiety, depression, suicidal or homicidal ideation, hallucinations. PHYSICAL EXAMINATION Vital Signs - 24 hr 03/05/20 03/06/20 03/06/20 15:28 01:56 06:22 Temperature 97.2 F L Pulse Rate 107 H Pulse Rate [ 84 82 Apical] Respiratory 20 22 H 22 H Rate Blood Pressure 137/83 Blood Pressure 165/77 157/93 [Left Arm] O2 Sat by Pulse 94 L 98 95 Oximetry (%) 03/06/20 03/06/20 03/06/20 07:00 07:20 11:34 Temperature 97.9 F 97.9 F 98.3 F Pulse Rate Pulse Rate [ 84 89 72 Apical] Respiratory 13 25 H Rate Blood Pressure Blood Pressure 157/93 155/80 150/85 [Left Arm] O2 Sat by Pulse 95 100 96 Oximetry (%) GENERAL: Awake, alert, and fully oriented, in no acute distress. HEAD: Normal with no signs of trauma. EYES: PERRLA, EOMI, sclera anicteric, conjunctiva clear. EARS, NOSE, THROAT: Dry mucous membranes. NECK: Normal range of motion, supple LUNGS: Decreased breath sounds on bilateral bases HEART: Regular rate and rhythm, normal S1 and S2 ABDOMEN: Soft, nontender, not distended, normoactive bowel sounds LOWER EXTREMITIES: 2+ pulses, warm, well-perfused. No peripheral edema. SKIN: Warm, dry, normal turgor Laboratory Results - last 24 hr 03/05/20 03/05/20 03/05/20 15:38 17:00 17:00 WBC 17.1 H Corrected WBC (auto) RBC 5.60 H Hgb 15.0 Hct 46.9 H D MCV 83.7 MCH 26.7 MCHC 31.9 L RDW 15.3 D Plt Count 200 D MPV 8.8 D Absolute Neuts (auto) 14.5 H Absolute Lymphs (auto) Absolute Monos (auto) Absolute Eos (auto) Absolute Basos (auto) Add Manual Diff Neutrophils % 85.1 H Lymphocytes % 5.9 L D Monocytes % 8.1 Eosinophils % 0.4 D Basophils % 0.5 Nucleated RBC % 0 Platelet Estimate Decreased Platelet Comment Rare giant plts Normal RBC Morphology Sodium 139 Potassium 3.8 Chloride 102 Carbon Dioxide 30 Anion Gap 7 L BUN 14.3 Creatinine 1.1 Est GFR (CKD-EPI)AfAm 55.30 Est GFR (CKD-EPI)NonAf 47.71 POC Glucometer 61 Random Glucose 65 L Hemoglobin A1c % Lactic Acid Calcium 9.1 Phosphorus Magnesium Total Bilirubin 0.4 AST 13 L ALT 10 L Alkaline Phosphatase 102 Creatine Kinase 33 Troponin I 0.02 Total Protein 6.6 Albumin 2.9 L TSH 0.91 Urine Color Urine Appearance Urine pH Ur Specific [place] Urine Protein Urine Glucose (UA) Urine Ketones Urine Blood Urine Nitrite Urine Bilirubin Urine Urobilinogen Ur Leukocyte Esterase Urine WBC (Auto) Urine RBC (Auto) Urine Casts (Auto) U Epithel Cells (Auto) Urine Bacteria (Auto) 03/05/20 03/05/20 03/06/20 20:34 23:05 02:00 WBC Corrected WBC (auto) RBC Hgb Hct MCV MCH MCHC RDW Plt Count MPV Absolute Neuts (auto) Absolute Lymphs (auto) Absolute Monos (auto) Absolute Eos (auto) Absolute Basos (auto) Add Manual Diff Neutrophils % Lymphocytes % Monocytes % Eosinophils % Basophils % Nucleated RBC % Platelet Estimate Platelet Comment Normal RBC Morphology Sodium Potassium Chloride Carbon Dioxide Anion Gap BUN Creatinine Est GFR (CKD-EPI)AfAm Est GFR (CKD-EPI)NonAf POC Glucometer 294 Random Glucose Hemoglobin A1c % Lactic Acid 0.9 Calcium Phosphorus Magnesium Total Bilirubin AST ALT Alkaline Phosphatase Creatine Kinase Troponin I Total Protein Albumin TSH Urine Color Yellow Urine Appearance Clear Urine pH 7.5 D Ur Specific [place] 1.009 L Urine Protein 4+ H Urine Glucose (UA) Trace Urine Ketones Negative Urine Blood Trace Urine Nitrite Negative Urine Bilirubin Negative Urine Urobilinogen 0.2 Ur Leukocyte Esterase Negative Urine WBC (Auto) 8 Urine RBC (Auto) 31.6 Urine Casts (Auto) 2 U Epithel Cells (Auto) >36 Urine Bacteria (Auto) 237 03/06/20 03/06/20 03/06/20 05:30 06:10 06:10 WBC Cancelled Corrected WBC (auto) Cancelled RBC Cancelled Hgb Cancelled Hct Cancelled MCV Cancelled MCH Cancelled MCHC Cancelled RDW Cancelled Plt Count Cancelled MPV Cancelled Absolute Neuts (auto) Cancelled Absolute Lymphs (auto) Cancelled Absolute Monos (auto) Cancelled Absolute Eos (auto) Cancelled Absolute Basos (auto) Cancelled Add Manual Diff Cancelled Neutrophils % Cancelled Lymphocytes % Cancelled Monocytes % Cancelled Eosinophils % Cancelled Basophils % Cancelled Nucleated RBC % Cancelled Platelet Estimate Cancelled Platelet Comment Cancelled Normal RBC Morphology Cancelled Sodium 141 Potassium 4.2 Chloride 108 H Carbon Dioxide 27 Anion Gap 6 L BUN 11.8 Creatinine 1.0 Est GFR (CKD-EPI)AfAm 62.05 Est GFR (CKD-EPI)NonAf 53.54 POC Glucometer Random Glucose 220 H Hemoglobin A1c % Cancelled Lactic Acid Calcium 8.7 Phosphorus 3.1 Magnesium 1.6 L Total Bilirubin 0.5 AST 10 L ALT 8 L Alkaline Phosphatase 93 Creatine Kinase Troponin I Total Protein 6.1 L Albumin 2.5 L TSH Urine Color Urine Appearance Urine pH Ur Specific [place] Urine Protein Urine Glucose (UA) Urine Ketones Urine Blood Urine Nitrite Urine Bilirubin Urine Urobilinogen Ur Leukocyte Esterase Urine WBC (Auto) Urine RBC (Auto) Urine Casts (Auto) U Epithel Cells (Auto) Urine Bacteria (Auto) 03/06/20 03/06/20 03/06/20 07:21 08:05 08:05 WBC 11.5 H Corrected WBC (auto) RBC 5.32 H Hgb 14.2 Hct 44.9 MCV 84.4 MCH 26.7 MCHC 31.7 L RDW 15.4 Plt Count 184 MPV 8.5 Absolute Neuts (auto) 9.5 H Absolute Lymphs (auto) Absolute Monos (auto) Absolute Eos (auto) Absolute Basos (auto) Add Manual Diff Neutrophils % 83.0 H Lymphocytes % 6.2 L Monocytes % 9.2 Eosinophils % 1.0 D Basophils % 0.6 Nucleated RBC % 0 Platelet Estimate Platelet Comment Normal RBC Morphology Sodium Potassium Chloride Carbon Dioxide Anion Gap BUN Creatinine Est GFR (CKD-EPI)AfAm Est GFR (CKD-EPI)NonAf POC Glucometer 219 Random Glucose Hemoglobin A1c % 9.9 H Lactic Acid Calcium Phosphorus Magnesium Total Bilirubin AST ALT Alkaline Phosphatase Creatine Kinase Troponin I Total Protein Albumin TSH Urine Color Urine Appearance Urine pH Ur Specific [place] Urine Protein Urine Glucose (UA) Urine Ketones Urine Blood Urine Nitrite Urine Bilirubin Urine Urobilinogen Ur Leukocyte Esterase Urine WBC (Auto) Urine RBC (Auto) Urine Casts (Auto) U Epithel Cells (Auto) Urine Bacteria (Auto) 03/06/20 11:12 WBC Corrected WBC (auto) RBC Hgb Hct MCV MCH MCHC RDW Plt Count MPV Absolute Neuts (auto) Absolute Lymphs (auto) Absolute Monos (auto) Absolute Eos (auto) Absolute Basos (auto) Add Manual Diff Neutrophils % Lymphocytes % Monocytes % Eosinophils % Basophils % Nucleated RBC % Platelet Estimate Platelet Comment Normal RBC Morphology Sodium Potassium Chloride Carbon Dioxide Anion Gap BUN Creatinine Est GFR (CKD-EPI)AfAm Est GFR (CKD-EPI)NonAf POC Glucometer 82 Random Glucose Hemoglobin A1c % Lactic Acid Calcium Phosphorus Magnesium Total Bilirubin AST ALT Alkaline Phosphatase Creatine Kinase Troponin I Total Protein Albumin TSH Urine Color Urine Appearance Urine pH Ur Specific [place] Urine Protein Urine Glucose (UA) Urine Ketones Urine Blood Urine Nitrite Urine Bilirubin Urine Urobilinogen Ur Leukocyte Esterase Urine WBC (Auto) Urine RBC (Auto) Urine Casts (Auto) U Epithel Cells (Auto) Urine Bacteria (Auto) Active Medications Generic Name Dose Route Start Last Admin Trade Name Freq PRN Reason Stop Dose Admin Apixaban 5 mg 03/05/20 23:45 03/06/20 09:22 Eliquis - PO 5 mg BID EVER Administration Buspirone HCl 5 mg 03/05/20 23:45 03/06/20 09:22 Buspar - PO 5 mg BID EVER Administration Gabapentin 300 mg 03/05/20 23:45 03/06/20 09:22 Neurontin - PO 300 mg BID EVER Administration Sodium Chloride 1,000 mls @ 50 mls/hr 03/05/20 23:00 03/05/20 23:34 Normal Saline - IV 03/06/20 18:59 50 mls/hr ASDIR EVER Administration Piperacillin Sod/Tazobactam 50 mls @ 100 mls/hr 03/05/20 23:15 Sod 3.375 gm/ Dextrose IVPB 03/06/20 23:14 Q8H-IV EVER Protocol Piperacillin Sod/Tazobactam 50 mls @ 100 mls/hr 03/06/20 00:00 03/06/20 09:22 Sod 3.375 gm/ Dextrose IVPB 03/06/20 18:29 100 mls/hr Q8H-IV EVER Administration Protocol Insulin Aspart 1 vial 03/06/20 07:00 03/06/20 11:14 Novolog Vial Sliding Scale - SQ Not Given ACHS EVER Protocol Metoprolol Succinate 25 mg 03/06/20 10:00 03/06/20 09:22 Toprol Xl - PO 25 mg DAILY EVER Administration Mirtazapine 15 mg 03/06/20 22:00 Remeron - PO HS EVER ASSESSMENT/PLAN: Patient is a 79 year old female with past medical history of HTN, Insulin- treated DM, HLD, Tobacco use, Anxiety, 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 We were consulted for further evaluation of lung cancer. #Lung cancer -Lung bx: poorly differentiated squamous cell carcinoma with necrosis (09/27) -would need to discuss with family to establish goals of care -if w/u and treatment is wanted by family, recommend bone scan, MRI brain to complete staging w/u Dispo: We will continue to follow the patient. Thank you for this consultative opportunity. Visit type - Medication Review Med list reviewed for High Risk Meds patients 65 and older: Yes - Emergency Visit Emergency Visit: Yes ED Registration Date: 03/05/20 Care time: The patient presented to the Emergency Department on the above date and was hospitalized for further evaluation of their emergent condition. - New Patient This patient is new to me today: Yes Date on this admission: 03/06/20 - Critical Care Critical Care patient: No ATTENDING PHYSICIAN STATEMENT I saw and evaluated the patient. I reviewed the resident's note and discussed the case with the resident. I agree with the resident's findings and plan as documented. SUBJECTIVE: OBJECTIVE: ASSESSMENT AND PLAN:
--- NOTE | 2020-03-06 14:39 | PN ---
Progress Note (short form) - Note Progress Note: ID consult dictated imp/reccd 79 yo female admitted from home with hypoglycemia and dizziness, known lung cancer yesterday am had a bs of 250 took insulin but didnot eat lunch and later became hypoglycemic in ED noted to have wbc of 17 and elevated hemoglobin no cough no fevers or chills UA negative cxray no infiltrate -+known lung mass (lung cancer) leukocytosis- no fever, ?stress due to hypoglycemia, less likely infection, hemoconcentration is likely as well not sure she has an infection at this time given vanco/zosyn in ED d/c zosyn and observe f/u cultures in am hypoglycemia resolved lung cancer please call back if needed Problem List - Problems (1) Leucocytosis Code(s): D72.829 - ELEVATED WHITE BLOOD CELL COUNT, UNSPECIFIED (2) Hypoglycemia Code(s): E16.2 - HYPOGLYCEMIA, UNSPECIFIED (3) Lung cancer Code(s): C34.90 - MALIGNANT NEOPLASM OF UNSP PART OF UNSP BRONCHUS OR LUNG
--- NOTE | 2020-03-06 17:26 | PN ---
Teaching Attending Note Name of Resident: Erica Germain ATTENDING PHYSICIAN STATEMENT I saw and evaluated the patient. I reviewed the resident's note and discussed the case with the resident. I agree with the resident's findings and plan as documented. 79F active smoker, HTN, DMII, dementia and recent dx of Lung SCC presents for symptomatic hypoglycemia. Patient also with leukocytosis (WBC 17.1 on admission, now 11k after fluids) most likely hemoconcentrated with underlying leukomoid rxt from known malignancy however agree with infectious workup. Recommend speaking with family to address GOC/plan of care regarding aggressiveness of SCC management. If they would like to proceed, patient will need re-staging scans ( CT chest/abd/pelvis with contrast and MRI brain) but this can be pursued as an outpatient as well as follow up with an Oncologist
[2020-03-06] MEDS: MIRTAZAPINE 15 MG TABLET (FP) PO SCH (21:48)
--- NOTE | 2020-03-07 00:14 | CONS ---
DATE OF CONSULTATION: DATE OF DICTATION: 03/06/2020 INFECTIOUS DISEASE CONSULTATION HISTORY OF PRESENT ILLNESS: This is a 79-year-old woman with past medical history of hypertension, diabetes, recently diagnosed right lung cancer status post biopsy in August 2019. She apparently was brought to the emergency room with weakness and dizziness and when EMS arrived, she was found to be hypoglycemic with blood sugar of 60. She apparently her sugar had been elevated in the morning. She had taken insulin but had not had not had any lunch. She denies any fevers, chills. She denies any nausea, vomiting, dysuria, diarrhea, abdominal pain, or chest pain. She has no other complaints. She lives alone and has a home health aid that comes every day. PAST MEDICAL HISTORY: Notable for hypertension, diabetes, hyperlipidemia, anxiety, recent diagnosis of lung cancer, squamous cell carcinoma status post lung biopsy in August 2019. She has a history of peripheral vascular disease. SURGICAL HISTORY: Notable for right saphenous artery and iliac stent placement. ALLERGIES: No known drug allergies. SOCIAL HISTORY: She lives alone. She has a home health aid 4 hours a day, and she smokes 2 cigarettes a day. FAMILY HISTORY: Notable for diabetes. REVIEW OF SYSTEMS: She feels well and wants to go home. PHYSICAL EXAMINATION: General: She is afebrile. Vital Signs: Temperature is 98.3. She has had no fever since admission. She was admitted on March 05 in the afternoon at 3 p.m., she has been afebrile. Blood pressure 150/85, respiratory rate 13, she is saturating 96%. HEENT: Normocephalic. Eyes are anicteric. Neck: Supple. Lungs: Clear to auscultation. Heart: Regular rate and rhythm. Abdomen: Soft, nontender. Extremities: Without edema. LABORATORY: White count on admission was 17.1 with hemoglobin of 15 and hemoglobin of 46.9. Her platelets were 200,000. Her BUN and creatinine are 11 and 1. Hemoglobin A1c is 9.9. Urinalysis is negative. COVID PCR is pending. Blood and urine cultures are pending. She was given a dose of vancomycin and started on piperacillin/tazobactam of which she has got 24 hours of antibiotics. Urine and blood cultures are negative at this time. She had a chest x-ray done that was unremarkable. There are no infiltrates. She still has the hilar enlargement at the site of her malignancy. IMPRESSION: In summary, this is a 79-year-old woman admitted with hypoglycemia, it currently sounds like it is on the basis of her insulin intake and lack of eating. She has no fever to suggest infection. Physical examination is unremarkable. She has signs of leukocytosis and hemoconcentration, which have improved with fluids. Her white count this morning is 11.5, and her hemoglobin is 14 from 15. I suspect her symptoms are more related to stress due to hypoglycemia most likely infection as well as possible hemoconcentration. I am not sure she has an infection at this time. Would suggest we stop antibiotics and observe and follow up cultures. Management of her malignancy per oncology. LUIS KELLER M.D. [id number]
[2020-03-07] MEDS: INSULIN SLIDING SCALE (NOVOLOG) 1 VIAL SQ SCH ×4 (06:07→22:34)
[2020-03-07] MEDS: APIXABAN 5 MG TABLET PO SCH ×2 (10:53→22:34)
[2020-03-07] MEDS: GABAPENTIN 300 MG CAPSULE PO SCH ×2 (10:54→22:34)
[2020-03-07] MEDS: busPIRone HCL 5 MG TABLET PO SCH ×2 (10:54→22:33)
[2020-03-07] MEDS: metoPROLOL SUCCINATE 25 MG TAB.SR.24H (FP) PO SCH (10:54)
--- NOTE | 2020-03-07 11:07 | PN ---
Progress Note, Physician Chief Complaint: Dizziness Hypoglycemia SCC Metastatic Lung ca History of Present Illness: Patient is a 79 year old female with a significant past medical history of diabetes, hyperlipidemia, nicotine dependence, right SFA and iliac stent placement, who presents to the ED with dizziness and low blood sugar. Pt states that she was feeling dizzy today and checked her blood sugar and found it to be 60. pt drank orange juice, and her sugar increased to 90. She notes that she took 20u insulin this morning because her sugar was 250. She ate breakfast but skipped lunch afterwards. Pt now states she feels a bit better. Denies CP/SOB. Denies palpitations. Denies abdominal pain/N/V/D. NAD Dysphoric, stating, no one told her about her cancer diagnosis. Does want treatment if indicated. - Current Medication List Current Medications: Active Medications Apixaban (Eliquis -) 5 mg PO BID [facility] Last Admin: 03/07/20 10:53 Dose: 5 mg Documented by: Buspirone HCl (Buspar -) 5 mg PO BID [facility] Last Admin: 03/07/20 10:54 Dose: 5 mg Documented by: Gabapentin (Neurontin -) 300 mg PO BID [facility] Last Admin: 03/07/20 10:54 Dose: 300 mg Documented by: Insulin Aspart (Novolog Vial Sliding Scale -) 1 vial SQ [facility]; Protocol Last Admin: 03/07/20 06:07 Dose: Not Given Documented by: Metoprolol Succinate (Toprol Xl -) 25 mg PO DAILY [facility] Last Admin: 03/07/20 10:54 Dose: 25 mg Documented by: Mirtazapine (Remeron -) 15 mg PO [facility] Last Admin: 03/06/20 21:48 Dose: 15 mg Documented by: - Objective Vital Signs: Vital Signs Temperature 97.8 F 03/07/20 09:00 Pulse Rate 80 03/07/20 09:00 Respiratory Rate 18 03/07/20 09:00 Blood Pressure 143/74 03/07/20 09:00 O2 Sat by Pulse Oximetry (%) 94 L 03/07/20 09:00 Constitutional: Yes: No Distress, Calm, Cachectic Cardiovascular: Yes: Regular Rate and Rhythm Respiratory: Yes: Regular, CTA Bilaterally Gastrointestinal: Yes: Normal Bowel Sounds, Soft Genitourinary: Yes: WNL Musculoskeletal: Yes: Muscle Weakness Extremities: Yes: WNL Edema: No Peripheral Pulses WNL: Yes Neurological: Yes: Alert, Oriented Psychiatric: Yes: Alert, Oriented Labs: CBC, BMP 03/06/20 08:05 03/06/20 06:10 Problem List - Problems (1) Cachexia Problems reviewed: Yes Code(s): R64 - CACHEXIA (2) Malnutrition Assessment/Plan: -multivitamin po daily -Ensure TID Problems reviewed: Yes Code(s): E46 - UNSPECIFIED PROTEIN-CALORIE MALNUTRITION Qualifiers: Protein-calorie malnutrition severity: severe (3) Dizziness Assessment/Plan: -resolved -Seen by neurology -MRI brain -Also check orthostatic BP Problems reviewed: Yes Code(s): R42 - DIZZINESS AND GIDDINESS (4) Hypoglycemia Assessment/Plan: -resolved Problems reviewed: Yes Code(s): E16.2 - HYPOGLYCEMIA, UNSPECIFIED (5) Squamous cell carcinoma of lungs, bilateral Assessment/Plan: -Oncology consult appreciated -CT Chest,AP -MRI brain -Pulmonary consult Problems reviewed: Yes Code(s): C34.91 - MALIGNANT NEOPLASM OF UNSP PART OF RIGHT BRONCHUS OR LUNG; C34.92 - MALIGNANT NEOPLASM OF UNSP PART OF LEFT BRONCHUS OR LUNG (6) Diabetes Assessment/Plan: -A1c at 9.9 -BGM AC HS -ISS -Start Januvia 25 mg po daily -Low sodium diabetic diet Problems reviewed: Yes Code(s): E11.9 - TYPE 2 DIABETES MELLITUS WITHOUT COMPLICATIONS Qualifiers: Diabetes mellitus type: type 2 Diabetes mellitus shelter insulin use: without shelter use Diabetes mellitus complication status: with skin complications Diabetes mellitus complication detail: with other skin ulcer Qualified Code(s): E11.622 - Type 2 diabetes mellitus with other skin ulcer Assessment/Plan See problem list Spoke to ron Gonzalez at (work)
--- NOTE | 2020-03-07 13:08 | PN ---
Progress Note, Physician History of Present Illness: pt seen and evaluated today in nad. no overnight events. no new complaints. - Current Medication List Current Medications: Active Medications Apixaban (Eliquis -) 5 mg PO BID [facility] Last Admin: 03/07/20 10:53 Dose: 5 mg Documented by: Buspirone HCl (Buspar -) 5 mg PO BID [facility] Last Admin: 03/07/20 10:54 Dose: 5 mg Documented by: Gabapentin (Neurontin -) 300 mg PO BID [facility] Last Admin: 03/07/20 10:54 Dose: 300 mg Documented by: Insulin Aspart (Novolog Vial Sliding Scale -) 1 vial SQ ACHS [facility]; Protocol Last Admin: 03/07/20 12:34 Dose: 4 unit Documented by: Metoprolol Succinate (Toprol Xl -) 25 mg PO DAILY [facility] Last Admin: 03/07/20 10:54 Dose: 25 mg Documented by: Mirtazapine (Remeron -) 15 mg PO HS [facility] Last Admin: 03/06/20 21:48 Dose: 15 mg Documented by: - Objective Vital Signs: Vital Signs Temperature 97.8 F 03/07/20 09:00 Pulse Rate 80 03/07/20 09:00 Respiratory Rate 18 03/07/20 09:00 Blood Pressure 143/74 03/07/20 09:00 O2 Sat by Pulse Oximetry (%) 94 L 03/07/20 09:00 Constitutional: Yes: No Distress, Calm Eyes: Yes: Conjunctiva Clear, EOM Intact HENT: Yes: Atraumatic, Normocephalic Neck: Yes: Supple, Trachea Midline Cardiovascular: Yes: Regular Rate and Rhythm, S1, S2. No: Bradycardia, Tachycardia, Bruit, JVD, Gallop, Murmur, Rub, S3, S4 Respiratory: Yes: Regular, CTA Bilaterally. No: Rales, Rhonchi, SOB, Wheezes Gastrointestinal: Yes: Normal Bowel Sounds, Soft. No: Distention, Tenderness Musculoskeletal: Yes: WNL Extremities: Yes: WNL Edema: No Peripheral Pulses WNL: Yes Peripheral Pulses: Left Doralis Pedis: 2+, Right Dorsalis Pedis: 2+ Neurological: Yes: Alert, Oriented Psychiatric: Yes: Alert, Oriented Labs: CBC, BMP 03/06/20 08:05 03/06/20 06:10 - ....Imaging Chest X-ray: Report Reviewed, Image Reviewed EKG: Report Reviewed, Image Reviewed Other: Report Reviewed, Image Reviewed (tele-nsr, frequent apcs, pvcs, no afib recorded) Assessment/Plan 79 year old woman with pmh HLD, DMII, smoker, PAD s/p [employer] R SFA and iliac artery, recently dx Lung Ca, admitted with c/o dizziness, noted to be hypoglycemic. pt noted to have mild sinus tachycardia with frequent apcs. denies having had any chest pain, sob, or palpitations. no pnd, orthopnea, or LE edema. tachycardia -mild sinus tach resolved -apcs and pvcs noted, asymptomatic -tele reviewed, no documented evidence of afib (there was some report of afib in the chart possibly by EMS but no documentation-suspect it was actually sinus with frequent apcs which has been seen since coming to ER) -if can recover rhythm strips from EMS would be helpful -[facility] outpatient event monitor for further evaluation -as per chart pt was already on eliquis as outpatient for h/o DVT -as there has been no documented evidence of Afib available, does not require AC for Afib purposes -sinus tachycardia was in the setting of hypoglycemia -does not require bblocker for this and may mask symptoms of hypoglycemia -remainder of cardiac work up can be done as outpatient Please call with any additional questions.
--- NOTE | 2020-03-07 14:12 | CONSULT ---
Consult Consult Specialty:: Palliative care consult Referred by:: Moi Valdivia Reason for Consultation:: Goals of care - History of Present Illness Chief Complaint: Lung cancer History of Present Illness: German-speaking 79F with PMH IDDM, HLD, nicotine dependence, right SFA and iliac stent placement, BIBA for reported dizziness and hypoglycemia on 03/05/20. Per EMS called by patient's friend to evaluate, reported hypoglycemia and feeling dizzy. Arrived at house, BGM 60, given orange juice and increased to 90, brought to ED for evaluation. dye range feeder showed AFIB but no prior history. Patient reports IDDM with pills and injections of 10-20U insulin, does not know names of medicines. Checks BGM before meals and only takes insulin when sugar is high. This AM BGM 250, took 20U insulin. Ate breakfast, but did not eat lunch because she did not feel hungry. [employer] began to feel dizzy like her sugar was low, has had this problem before, called friend. Previously healthy, no chest pain, no SOB, no N/V, no C/D, no abd pain. Reports room-spinning dizziness that comes and goes, went away with eating. No sick contacts. Erythrocytosis and leukocytosis -? paraneoplastic phenomenon - treated with IV Vancomycin, IV Zosyn - subsequently discontinued. CXR - cardiomegaly, calcified aortic knob and R hilar mass that has increased in size compared to August. 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 Patient was diagnosed with poorly differentiated SCC in August - but did not follow up after dc from [facility]. no documented evidence of afib (there was some report of afib in the chart possibly by EMS but no documentation-suspect it was actually sinus with frequent apcs which has been seen since coming to ER) Palliative care consult called for goals of care. A1C 9.9 ++ proteinuria, BMI 17, hypoalbuminemia, cachexia COVID negative. - Past Medical History Cardio/Vascular: Yes: HTN, Hyperlipdemia. No: AFIB Pulmonary: Yes: COPD. No: O2 Dependent Gastrointestinal: Yes: GERD. No: Ascites ...: No Endocrine: Yes: Diabetes Mellitus - Alcohol/Substance Use Hx Alcohol Use: No History of Substance Use: reports: None - Smoking History Smoking history: Current every day smoker Have you smoked in the past 12 months: Yes Aproximately how many cigarettes per day: 3 If you are a former smoker, when did you quit?: 1 year ago - Social History Usual Living Arrangement: Alone ADL: Independent History of Recent Travel: No Home Medications - Allergies Allergies/Adverse Reactions: Allergies Allergy/AdvReac Type Severity Reaction Status Date / Time No Known Allergies Allergy Verified 09/11/19 09:02 - Home Medications Home Medications: Ambulatory Orders Buspirone HCl [Buspar -] 5 mg PO BID 07/27/19 Cetirizine HCl [Allergy Relief] 10 mg PO DAILY 08/24/19 Acetaminophen [Tylenol .Extra-Strength -] 500 mg PO Q6H PRN tablet 09/27/19 Albuterol 2.5/Ipratropium 0.5 [Duoneb -] 1 amp NEB Q4H PRN amp 09/27/19 Amlodipine Besylate [Norvasc -] 5 mg PO DAILY #30 tablet 09/27/19 Apixaban [Eliquis -] 5 mg PO BID #60 tablet 09/27/19 Collagenase Clostridium Hist. [Santyl -] 1 applic TP DAILY #1 tube 09/27/19 Gabapentin [Neurontin -] 300 mg PO BID #60 capsule 09/27/19 Glimepiride [Glimepiride -] 2 mg PO DAILY #30 tablet 09/27/19 Insulin Detemir [Levemir Flextouch] 15 unit SQ AM #1 insuln.pen 09/27/19 Insulin Lispro [Humalog Kwikpen U-100] See Protocol SQ AC #1 insuln.pen 09/27/19 Iron Polysaccharides [Niferex-150 -] 150 mg PO DAILY #30 capsule 09/27/19 Mirtazapine [Remeron -] 1 tab PO HS #30 tablet 09/27/19 Sodium Zirconium Cyclosilicate [Lokelma] 5 gm PO DAILY #30 packet 09/27/19 traMADol HCL [Ultram -] 50 mg PO TID PRN #90 tablet MDD 3 09/27/19 Family Medical History Family History: Denies Review of Systems - Review of Systems Constitutional: reports: Unintentional Wgt. Loss Physical Exam Vital Signs: Vital Signs Temperature 97.8 F 03/07/20 09:00 Pulse Rate 80 03/07/20 09:00 Respiratory Rate 18 03/07/20 09:00 Blood Pressure 143/74 03/07/20 09:00 O2 Sat by Pulse Oximetry (%) 94 L 03/07/20 09:00 Labs: CBC, BMP 03/06/20 08:05 03/06/20 06:10 Imaging - Results Chest X-ray: Report Reviewed Cat Scan: Report Reviewed Other: Report Reviewed (Bx report) Problem List - Problems (1) Cachexia Code(s): R64 - CACHEXIA (2) Malnutrition Code(s): E46 - UNSPECIFIED PROTEIN-CALORIE MALNUTRITION Qualifiers: Protein-calorie malnutrition severity: severe (3) Squamous cell carcinoma of lungs, bilateral Code(s): C34.91 - MALIGNANT NEOPLASM OF UNSP PART OF RIGHT BRONCHUS OR LUNG; C34.92 - MALIGNANT NEOPLASM OF UNSP PART OF LEFT BRONCHUS OR LUNG (4) CKD stage 3 secondary to diabetes Code(s): E11.22 - TYPE 2 DIABETES MELLITUS W DIABETIC CHRONIC KIDNEY DISEASE; N18.3 - CHRONIC KIDNEY DISEASE, STAGE 3 (MODERATE) (5) Mass of right lung Code(s): R91.8 - OTHER NONSPECIFIC ABNORMAL FINDING OF LUNG FIELD (6) Non-compliance with treatment Code(s): Z91.19 - PATIENT'S NONCOMPLIANCE W OTH MEDICAL TREATMENT AND REGIMEN Assessment/Plan German-speaking 79F with PMH IDDM, HLD, nicotine dependence, right SFA and iliac stent placement, admitted for dizziness and hypoglycemia on 03/05/20. Patient with IDDM treated with pills and injections of 10-20U insulin, only takes insulin when sugar is high. Previously healthy, no chest pain, no SOB, no N/V, no C/D, no abd pain. Reports room-spinning dizziness that comes and goes, went away with eating. No sick contacts. Erythrocytosis and leukocytosis -? paraneoplastic phenomenon - treated with IV Vancomycin, IV Zosyn - subsequently discontinued. CXR - cardiomegaly, calcified aortic knob and R hilar mass that has increased in size compared to August. 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 Patient did not follow up since discharge in August. no documented evidence of afib (there was some report of afib in the chart possibly by EMS but no documentation-suspect it was actually sinus with frequent apcs which has been seen since coming to ER) Palliative care consult called for goals of care. A1C 9.9- poorly controlled DM ++ proteinuria COVID negative. BMI- 17 hypoalbuminemia cachectic non compliant I have spoken to her son Carlos - patient and family are upset about the diagnosis of lung cancer. Family was involved at the time of the lung biopsy back in August but apparently neither patient nor the family followed up thinking " no news is good news". She has been seen by Oncology now and is undergoing sta ging for prognostication purpose and treatment. She has indicated that she wants to pursue treatment and her son will defer to her wishes.. Prognosis is guarded given diagnosis, age, comorbidities, fraility. Patient is a full code. Family would like to be present when the diagnosis and treatment is discussed with her. Will continue supportive care. Emotional support provided. Will follow. Please call with questions. Fernandaanuja for allowing me to participate in the care of this patient. Marcello Moore MD [phone] Total time for chart review, examination, conference and coordination of care- 70 minutes.
[2020-03-07] MEDS: MULTIVITAMINS (DAILY MVI) TABLET (FP) PO SCH (18:53)
--- NOTE | 2020-03-07 19:48 | CONSULT ---
Consult Consult Specialty:: Endocrine Reason for Consultation:: DMT2 - History of Present Illness Chief Complaint: high sugar History of Present Illness: 79yo F with PMHx of DMT2, HLD, active smoker, PVD (s/p stent in R superior femoral and iliac artery), anxiety, and recent diagnosis of lung SCC admitted for dizziness and hypoglycemia. . When she checked her blood glucose it was 250 so she took her insulin 20 units, . She continued to feel dizzy so she sat down she normally takes insulin as needed,has not been having good appetite and sugars have been good. she felt better after taking orange juice,her symptoms of dizziness remained which she is admitted. - Past Medical History Cardio/Vascular: Yes: HTN, Hyperlipdemia. No: AFIB Pulmonary: Yes: COPD. No: O2 Dependent Gastrointestinal: Yes: GERD. No: Ascites ...: No Endocrine: Yes: Diabetes Mellitus - Alcohol/Substance Use Hx Alcohol Use: No History of Substance Use: reports: None - Smoking History Smoking history: Current every day smoker Have you smoked in the past 12 months: Yes Aproximately how many cigarettes per day: 3 If you are a former smoker, when did you quit?: 1 year ago - Social History Usual Living Arrangement: Alone ADL: Independent History of Recent Travel: No Home Medications - Allergies Allergies/Adverse Reactions: Allergies Allergy/AdvReac Type Severity Reaction Status Date / Time No Known Allergies Allergy Verified 09/11/19 09:02 - Home Medications Home Medications: Ambulatory Orders Buspirone HCl [Buspar -] 5 mg PO BID 07/27/19 Cetirizine HCl [Allergy Relief] 10 mg PO DAILY 08/24/19 Acetaminophen [Tylenol .Extra-Strength -] 500 mg PO Q6H PRN tablet 09/27/19 Albuterol 2.5/Ipratropium 0.5 [Duoneb -] 1 amp NEB Q4H PRN amp 09/27/19 Amlodipine Besylate [Norvasc -] 5 mg PO DAILY #30 tablet 09/27/19 Apixaban [Eliquis -] 5 mg PO BID #60 tablet 09/27/19 Collagenase Clostridium Hist. [Santyl -] 1 applic TP DAILY #1 tube 09/27/19 Gabapentin [Neurontin -] 300 mg PO BID #60 capsule 09/27/19 Glimepiride [Glimepiride -] 2 mg PO DAILY #30 tablet 09/27/19 Insulin Detemir [Levemir Flextouch] 15 unit SQ AM #1 insuln.pen 09/27/19 Insulin Lispro [Humalog Kwikpen U-100] See Protocol SQ AC #1 insuln.pen 09/27/19 Iron Polysaccharides [Niferex-150 -] 150 mg PO DAILY #30 capsule 09/27/19 Mirtazapine [Remeron -] 1 tab PO HS #30 tablet 09/27/19 Sodium Zirconium Cyclosilicate [Lokelma] 5 gm PO DAILY #30 packet 09/27/19 traMADol HCL [Ultram -] 50 mg PO TID PRN #90 tablet MDD 3 09/27/19 Family Medical History Family History: Denies Review of Systems - Review of Systems Constitutional: reports: Lethargy, Loss of Appetite, Malaise, Weakness Eyes: reports: Blurred Vision HENT: reports: No Symptoms Neck: reports: No Symptoms Cardiovascular: reports: Palpitations, Shortness of Breath Respiratory: reports: Exercise Intolerance, SOB, SOB on Exertion Gastrointestinal: reports: Bloating, Nausea Genitourinary: reports: Frequency Breasts: reports: No Symptoms Reported Musculoskeletal: reports: Muscle Pain, Muscle Cramps, Muscle Weakness Integumentary: reports: No Symptoms Neurological: reports: Unsteady Gait, Weakness Endocrine: reports: Unexplained Weight Loss Physical Exam Vital Signs: Vital Signs Temperature 97.5 F L 03/07/20 14:15 Pulse Rate 74 03/07/20 14:15 Respiratory Rate 18 03/07/20 14:15 Blood Pressure 125/65 03/07/20 14:15 O2 Sat by Pulse Oximetry (%) 94 L 03/07/20 09:00 Constitutional: Yes: Anxious Eyes: Yes: EOM Intact HENT: Yes: Normocephalic Labs: CBC, BMP 03/06/20 08:05 03/06/20 06:10 Problem List - Problems (1) Cachexia Problems reviewed: Yes Code(s): R64 - CACHEXIA (2) Dizziness Problems reviewed: Yes Code(s): R42 - DIZZINESS AND GIDDINESS (3) Hypoglycemia Problems reviewed: Yes Code(s): E16.2 - HYPOGLYCEMIA, UNSPECIFIED (4) Leucocytosis Problems reviewed: Yes Code(s): D72.829 - ELEVATED WHITE BLOOD CELL COUNT, UNSPECIFIED (5) Malnutrition Problems reviewed: Yes Code(s): E46 - UNSPECIFIED PROTEIN-CALORIE MALNUTRITION Qualifiers: Protein-calorie malnutrition severity: severe (6) Squamous cell carcinoma of lungs, bilateral Problems reviewed: Yes Code(s): C34.91 - MALIGNANT NEOPLASM OF UNSP PART OF RIGHT BRONCHUS OR LUNG; C34.92 - MALIGNANT NEOPLASM OF UNSP PART OF LEFT BRONCHUS OR LUNG (7) Tachycardia Problems reviewed: Yes Code(s): R00.0 - TACHYCARDIA, UNSPECIFIED Assessment/Plan Current Active Problems Cachexia (Acute) Dizziness (Acute) Hypoglycemia (Acute) Leucocytosis (Acute) Malnutrition (Acute) Peripheral vascular disease (Acute) Squamous cell carcinoma of lungs, bilateral (Acute) Tachycardia (Acute) Laboratory Results - last 24 hr 03/05/20 03/06/20 03/07/20 23:30 21:53 05:18 POC Glucometer 197 137 COVID-19 (TOAN) Not detected 03/07/20 03/07/20 12:32 18:51 POC Glucometer 223 200 COVID-19 (TOAN) plan: bgm achs novolog scale freestyle marti for home use cgms metformin [id number] after meal januvia 50mg day levemir 7 units am if suigar over 180mg/dl
[2020-03-07] MEDS: PIPERACILLIN/TAZOB 3.375 GM 3.375 GM in DEXTROSE 5%-WATER - 50 ML IVPB SCH ×2 (22:32→22:33)
[2020-03-07] MEDS: MIRTAZAPINE 15 MG TABLET (FP) PO SCH (22:33)
[2020-03-08] MEDS: INSULIN SLIDING SCALE (NOVOLOG) 1 VIAL SQ SCH ×4 (06:48→22:33)
[2020-03-08] MEDS: sitaGLIPtin PHOSPHATE 50 MG TABLET PO SCH (06:48)
[2020-03-08] MEDS: INSULIN (LEVEMIR) 100 UNITS/ML UNITS SQ SCH (06:49)
[2020-03-08] MEDS: APIXABAN 5 MG TABLET PO SCH ×2 (09:23→22:37)
[2020-03-08] MEDS: busPIRone HCL 5 MG TABLET PO SCH ×2 (09:23→22:37)
[2020-03-08] MEDS: metoPROLOL SUCCINATE 25 MG TAB.SR.24H (FP) PO SCH (09:23)
[2020-03-08] MEDS: MULTIVITAMINS (DAILY MVI) TABLET (FP) PO SCH (09:23)
[2020-03-08] MEDS: GABAPENTIN 300 MG CAPSULE PO SCH ×2 (09:23→22:37)
--- NOTE | 2020-03-08 09:57 | PN ---
Progress Note, Physician Chief Complaint: Dizziness Hypoglycemia SCC Metastatic Lung ca History of Present Illness: Patient is a 79 year old female with a significant past medical history of diabetes, hyperlipidemia, nicotine dependence, right SFA and iliac stent placement, who presents to the ED with dizziness and low blood sugar. Pt states that she was feeling dizzy today and checked her blood sugar and found it to be 60. pt drank orange juice, and her sugar increased to 90. She notes that she took 20u insulin this morning because her sugar was 250. She ate breakfast but skipped lunch afterwards. Pt now states she feels a bit better. Denies CP/SOB. Denies palpitations. Denies abdominal pain/N/V/D. NAD Feels better today MRI brain no metastatic lesions Awaiting CT chest and abd - Current Medication List Current Medications: Active Medications Apixaban (Eliquis -) 5 mg PO BID [facility] Last Admin: 03/08/20 09:23 Dose: 5 mg Documented by: Buspirone HCl (Buspar -) 5 mg PO BID [facility] Last Admin: 03/08/20 09:23 Dose: 5 mg Documented by: Gabapentin (Neurontin -) 300 mg PO BID [facility] Last Admin: 03/08/20 09:23 Dose: 300 mg Documented by: Insulin Aspart (Novolog Vial Sliding Scale -) 1 vial SQ ACHS [facility]; Protocol Last Admin: 03/08/20 06:48 Dose: 2 unit Documented by: Insulin Detemir (Levemir Vial) 7 units SQ AM [facility] Last Admin: 03/08/20 06:49 Dose: 7 units Documented by: Metformin HCl (Glucophage Xr -) 500 mg PO DAILY@0700 [facility] Last Admin: 03/08/20 06:48 Dose: 500 mg Documented by: Metoprolol Succinate (Toprol Xl -) 25 mg PO DAILY [facility] Last Admin: 03/08/20 09:23 Dose: 25 mg Documented by: Mirtazapine (Remeron -) 15 mg PO HS [facility] Last Admin: 03/07/20 22:33 Dose: 15 mg Documented by: Multivitamins/Minerals/Vitamin C (Tab-A-Vit -) 1 tab PO DAILY [facility] Last Admin: 03/08/20 09:23 Dose: 1 tab Documented by: Sitagliptin Phosphate (Januvia -) 50 mg PO DAILY@0700 [facility] Last Admin: 03/08/20 06:48 Dose: 50 mg Documented by: - Objective Vital Signs: Vital Signs Temperature 97.4 F L 03/08/20 09:20 Pulse Rate 79 03/08/20 09:20 Respiratory Rate 18 03/08/20 09:20 Blood Pressure 161/76 03/08/20 09:20 O2 Sat by Pulse Oximetry (%) 96 03/08/20 09:20 Constitutional: Yes: No Distress, Calm, Cachectic Cardiovascular: Yes: Regular Rate and Rhythm Respiratory: Yes: Regular, CTA Bilaterally Gastrointestinal: Yes: Normal Bowel Sounds, Soft Genitourinary: Yes: WNL Musculoskeletal: Yes: Muscle Weakness Extremities: Yes: WNL Edema: No Peripheral Pulses WNL: Yes Neurological: Yes: Alert, Oriented Psychiatric: Yes: Alert, Oriented Labs: CBC, BMP 03/06/20 08:05 03/06/20 06:10 Problem List - Problems (1) Cachexia Problems reviewed: Yes Code(s): R64 - CACHEXIA (2) Malnutrition Assessment/Plan: -multivitamin po daily -Ensure TID Problems reviewed: Yes Code(s): E46 - UNSPECIFIED PROTEIN-CALORIE MALNUTRITION Qualifiers: Protein-calorie malnutrition severity: severe (3) Dizziness Assessment/Plan: -resolved -Seen by neurology -MRI brain no metastatic disease -orthostatic BP negative Problems reviewed: Yes Code(s): R42 - DIZZINESS AND GIDDINESS (4) Hypoglycemia Assessment/Plan: -resolved Problems reviewed: Yes Code(s): E16.2 - HYPOGLYCEMIA, UNSPECIFIED (5) Squamous cell carcinoma of lungs, bilateral Assessment/Plan: -Oncology consult appreciated -CT Chest,AP with contrast pending -MRI brain with no metastatic lesions -Pulmonary consult Problems reviewed: Yes Code(s): C34.91 - MALIGNANT NEOPLASM OF UNSP PART OF RIGHT BRONCHUS OR LUNG; C34.92 - MALIGNANT NEOPLASM OF UNSP PART OF LEFT BRONCHUS OR LUNG (6) Diabetes Assessment/Plan: -A1c at 9.9 -BGM AC HS -ISS -Januvia 50 mg po daily -Hold metformin for CT chest and abdomen with contrast -Low sodium diabetic diet Problems reviewed: Yes Code(s): E11.9 - TYPE 2 DIABETES MELLITUS WITHOUT COMPLICATIONS Qualifiers: Diabetes mellitus type: type 2 Diabetes mellitus jail insulin use: without jail use Diabetes mellitus complication status: with skin complications Diabetes mellitus complication detail: with other skin ulcer Qualified Code(s): E11.622 - Type 2 diabetes mellitus with other skin ulcer Assessment/Plan See problem list Spoke to ron Carlos at (work)
[2020-03-08] MEDS: MIRTAZAPINE 15 MG TABLET (FP) PO SCH (22:37)
[2020-03-09] MEDS: sitaGLIPtin PHOSPHATE 50 MG TABLET PO SCH (06:36)
[2020-03-09] MEDS: INSULIN (LEVEMIR) 100 UNITS/ML UNITS SQ SCH (06:36)
[2020-03-09] MEDS: INSULIN SLIDING SCALE (NOVOLOG) 1 VIAL SQ SCH ×2 (06:37→11:44)
[2020-03-09 08:03] LABS: ALBUMIN 2.6 g/dl (3.4-5.0); BILIRUBIN,TOTAL 0.2 mg/dL (0.2-1); BLOOD UREA NITROGEN 19.7 mg/dL (7-18); CALCIUM 9.1 mg/dL (8.5-10.1); CREATININE 1.2 mg/dL (0.55-1.3); POTASSIUM 4.8 mmol/L (3.5-5.1)
[2020-03-09] MEDS: APIXABAN 5 MG TABLET PO SCH (09:26)
[2020-03-09] MEDS: metoPROLOL SUCCINATE 25 MG TAB.SR.24H (FP) PO SCH (09:26)
[2020-03-09] MEDS: GABAPENTIN 300 MG CAPSULE PO SCH (09:26)
[2020-03-09] MEDS: busPIRone HCL 5 MG TABLET PO SCH (09:26)
[2020-03-09] MEDS: MULTIVITAMINS (DAILY MVI) TABLET (FP) PO SCH (09:26)
--- NOTE | 2020-03-09 10:32 | PN ---
Progress Note, Physician Chief Complaint: Dizziness Hypoglycemia SCC Metastatic Lung ca History of Present Illness: Patient is a 79 year old female with a significant past medical history of diabetes, hyperlipidemia, nicotine dependence, right SFA and iliac stent placement, who presented to [facility] ER for dizziness and low blood sugar. Pt stated that she was feeling dizzy at home, decided to check her BG, which was at 60 , decided to drink some orange juice. Pt's BG was 250 in AM, took 20 U of long acting insulin, had breakfast but skipped lunch. Denied CP/SOB. Denied palpitations. Denied abdominal pain/N/V/D. NAD Feels better today MRI brain no metastatic lesions CT Chest + A/P:Right lung masses described increased in size in prior study compatible with neoplasm. There are 2 hepatic low-attenuation lesions noted 1 may be a cyst other is too small to characterize Cholelithiasis Sigmoid diverticulosis possibly representing a chronic type of diverticulitis Bilateral femoral and iliac artery stents Pt was admitted in 08/2019 for SFA occlusion, had stent placed and by chance finding of RUL mass suspicious of malignancy, required biopsy with IR- which was done and pt was discharged on 09/27/19. I was notified of pt's pathology results on 09/29/19, which was further relayed to pt's PCP Dr Valdivia to address. Had a family meeting with pt and her son Carlos today, pt stated she was told about the mass sometime last year by her PCP? however there's no record of any imaging done inpatient prior to her last admission in August 2019, that showed Lung mass, it's unclear if she had imaging done outpatient. She goes on to state that she was told about the mass but wasn't told what to do with it or what it means. She is more acceptable of her diagnosis today and wants to go home. Son is aware of the diagnosis and results of imaging done this admission as well. He will make follow up appt with Oncologist outpatient to evaluate and plan further treatment. - Current Medication List Current Medications: Active Medications Apixaban (Eliquis -) 5 mg PO BID [facility] Last Admin: 03/09/20 09:26 Dose: 5 mg Documented by: Buspirone HCl (Buspar -) 5 mg PO BID [facility] Last Admin: 03/09/20 09:26 Dose: 5 mg Documented by: Gabapentin (Neurontin -) 300 mg PO BID [facility] Last Admin: 03/09/20 09:26 Dose: 300 mg Documented by: Insulin Aspart (Novolog Vial Sliding Scale -) 1 vial SQ ACHS [facility]; Protocol Last Admin: 03/09/20 06:37 Dose: Not Given Documented by: Insulin Detemir (Levemir Vial) 7 units SQ AM [facility] Last Admin: 03/09/20 06:36 Dose: 7 units Documented by: Metformin HCl (Glucophage Xr -) 500 mg PO DAILY@0700 [facility] Last Admin: 03/08/20 06:48 Dose: 500 mg Documented by: Metoprolol Succinate (Toprol Xl -) 25 mg PO DAILY [facility] Last Admin: 03/09/20 09:26 Dose: 25 mg Documented by: Mirtazapine (Remeron -) 15 mg PO HS [facility] Last Admin: 03/08/20 22:37 Dose: 15 mg Documented by: Multivitamins/Minerals/Vitamin C (Tab-A-Vit -) 1 tab PO DAILY [facility] Last Admin: 03/09/20 09:26 Dose: 1 tab Documented by: Sitagliptin Phosphate (Januvia -) 50 mg PO DAILY@0700 [facility] Last Admin: 03/09/20 06:36 Dose: 50 mg Documented by: - Objective Vital Signs: Vital Signs Temperature 98.3 F 03/08/20 22:00 Pulse Rate 76 03/09/20 06:00 Respiratory Rate 20 03/09/20 06:00 Blood Pressure 147/71 03/09/20 06:00 O2 Sat by Pulse Oximetry (%) 96 03/08/20 09:20 Constitutional: Yes: No Distress, Calm, Cachectic Cardiovascular: Yes: Regular Rate and Rhythm Respiratory: Yes: Regular, CTA Bilaterally Gastrointestinal: Yes: Normal Bowel Sounds, Soft Genitourinary: Yes: WNL Musculoskeletal: Yes: WNL Extremities: Yes: WNL Edema: No Peripheral Pulses WNL: Yes Neurological: Yes: Alert, Oriented Psychiatric: Yes: Alert, Oriented Labs: CBC, BMP 03/06/20 08:05 03/09/20 05:44 Problem List - Problems (1) Cachexia Problems reviewed: Yes Code(s): R64 - CACHEXIA (2) Malnutrition Assessment/Plan: -multivitamin po daily -Ensure TID Problems reviewed: Yes Code(s): E46 - UNSPECIFIED PROTEIN-CALORIE MALNUTRITION Qualifiers: Protein-calorie malnutrition severity: severe (3) Dizziness Assessment/Plan: -resolved -Seen by neurology -MRI brain no metastatic disease -orthostatic BP negative Problems reviewed: Yes Code(s): R42 - DIZZINESS AND GIDDINESS (4) Hypoglycemia Assessment/Plan: -resolved Problems reviewed: Yes Code(s): E16.2 - HYPOGLYCEMIA, UNSPECIFIED (5) Squamous cell carcinoma of lungs, bilateral Assessment/Plan: -Oncology consult appreciated -CT Chest/CTAP with contrast :Right lung masses described increased in size in prior study compatible with neoplasm. There are 2 hepatic low-attenuation lesions noted 1 may be a cyst other is too small to characterize Cholelithiasis Sigmoid diverticulosis possibly representing a chronic type of diverticulitis Bilateral femoral and iliac artery stents Significant distention of the stomach. Gastric outlet obstruction cannot be excluded -MRI brain with no metastatic lesions -Pulmonary consult Problems reviewed: Yes Code(s): C34.91 - MALIGNANT NEOPLASM OF UNSP PART OF RIGHT BRONCHUS OR LUNG; C34.92 - MALIGNANT NEOPLASM OF UNSP PART OF LEFT BRONCHUS OR LUNG (6) Diabetes Assessment/Plan: -A1c at 9.9 -BGM AC HS -ISS -Januvia 50 mg po daily -Hold metformin for CT chest and abdomen with contrast -Low sodium diabetic diet Problems reviewed: Yes Code(s): E11.9 - TYPE 2 DIABETES MELLITUS WITHOUT COMPLICATIONS Qualifiers: Diabetes mellitus type: type 2 Diabetes mellitus long term care pharmacist insulin use: without retirement use Diabetes mellitus complication status: with skin complications Diabetes mellitus complication detail: with other skin ulcer Qualified Code(s): E11.622 - Type 2 diabetes mellitus with other skin ulcer Assessment/Plan See problem list Spoke to ron Gonzalez.
--- NOTE | 2020-03-09 12:27 | DS ---
Physical Examination Vital Signs: Vital Signs Temperature 98.3 F 03/08/20 22:00 Pulse Rate 76 03/09/20 06:00 Respiratory Rate 20 03/09/20 06:00 Blood Pressure 147/71 03/09/20 06:00 O2 Sat by Pulse Oximetry (%) 96 03/08/20 09:20 Findings/Remarks: 79yo F with PMHx of DM, HLD, active smoker, PVD (s/p stent in R superior femoral and iliac artery), anxiety, and recent diagnosis of lung SCC (patient is unaware of diagnosis) who presented with dizziness and hypoglycemia. Patient felt a bit dizzy this morning. When she checked her blood glucose it was 250 so she took her insulin which she only takes PRN. She continued to feel dizzy so she sat down to assure no falls and called her friend who called EMS for her. When seen she felt back to her normal self and said that she wouldn't mind going home. She said this same thing happened about two years ago but she did not come into the hospital because she felt better faster. Endorsed diaphoresis, chronic intermitt ent cough, and L foot pain, but denied any other associated symptoms. Seems to also have a diagnosis of HTN but patient said that she has never received a diagnosis of HTN or any other cardiovascular pathology. Constitutional: Yes: No Distress, Calm, Cachectic Cardiovascular: Yes: Regular Rate and Rhythm Respiratory: Yes: Regular, CTA Bilaterally Gastrointestinal: Yes: Normal Bowel Sounds, Soft Renal/: Yes: WNL Musculoskeletal: Yes: WNL Edema: No Peripheral Pulses WNL: Yes Neurological: Yes: Alert, Oriented Psychiatric: Yes: Alert, Oriented Labs: CBC, BMP 03/06/20 08:05 03/09/20 05:44 Discharge Summary Problems reviewed: Yes Reason For Visit: HYPOGLYCEMIA,UNCONTROLLED DIABETES MELLITIUS Current Active Problems Abnormal EKG (Acute) Cachexia (Acute) Dizziness (Acute) Hypoglycemia (Acute) Leucocytosis (Acute) Malnutrition (Acute) Peripheral vascular disease (Acute) Squamous cell carcinoma of lungs, bilateral (Acute) Tachycardia (Acute) Condition: Stable - Instructions Referrals: Moi Valdivia MD [Primary Care Provider] - Gomez Angela [Non Staff, Medical] - Basil Redman [Non Staff, Medical] - Patricio Loaiza MD [Staff Physician] - Disposition: HOME - Home Medications Comprehensive Discharge Medication List: Ambulatory Orders Buspirone HCl [Buspar -] 5 mg PO BID 07/27/19 Cetirizine HCl [Allergy Relief] 10 mg PO DAILY 08/24/19 Acetaminophen [Tylenol .Extra-Strength -] 500 mg PO Q6H PRN tablet 09/27/19 Albuterol 2.5/Ipratropium 0.5 [Duoneb -] 1 amp NEB Q4H PRN amp 09/27/19 Amlodipine Besylate [Norvasc -] 5 mg PO DAILY #30 tablet 09/27/19 Apixaban [Eliquis -] 5 mg PO BID #60 tablet 09/27/19 Collagenase Clostridium Hist. [Santyl -] 1 applic TP DAILY #1 tube 09/27/19 Gabapentin [Neurontin -] 300 mg PO BID #60 capsule 09/27/19 Glimepiride [Glimepiride -] 2 mg PO DAILY #30 tablet 09/27/19 Insulin Detemir [Levemir Flextouch] 15 unit SQ AM #1 insuln.pen 09/27/19 Insulin Lispro [Humalog Kwikpen U-100] See Protocol SQ AC #1 insuln.pen 09/27/19 Iron Polysaccharides [Niferex-150 -] 150 mg PO DAILY #30 capsule 09/27/19 Mirtazapine [Remeron -] 1 tab PO HS #30 tablet 09/27/19 Sodium Zirconium Cyclosilicate [Lokelma] 5 gm PO DAILY #30 packet 09/27/19 traMADol HCL [Ultram -] 50 mg PO TID PRN #90 tablet MDD 3 09/27/19 Insulin Sliding Scale [Novolog Vial Sliding Scale -] 1 vial SQ ACHS units 03/09/20 Metoprolol Succinate [Toprol XL -] 25 mg PO DAILY #30 tab.sr.24h 03/09/20 Multivitamins [Multivit ([facility] Formulary)] 1 tab PO DAILY #30 tab 03/09/20 Sitagliptin Phosphate [Januvia -] 50 mg PO DAILY@0700 #30 tablet 03/09/20 Prescription Drug Monitoring Program (I-STOP) results: I-STOP reviewed and no issues identified
[2020-03-09 12:40] VITALS: BP 150/80; PULSE 78; TEMP 98
== END 2020-03-09 14:22 | disposition home or self-care (01) | DRG 637 ==
LOC: JER 15:24 → JERBED 16:22 → J4W 03-06 21:00
PROVIDERS: ADMIT Internal Medicine; ATTEND Family Medicine
DX: E11.649 Type 2 diabetes mellitus with hypoglycemia without coma (principal); E43 Unspecified severe protein-calorie malnutrition; C34.90 Malignant neoplasm of unspecified part of unspecified bronchus or lung; R64 Cachexia; Z68.1 Body mass index [BMI] 19.9 or less, adult; D72.829 Elevated white blood cell count, unspecified; F03.90 Unspecified dementia, unspecified severity, without behavioral disturbance, psychotic disturbance, mood disturbance, and anxiety; E88.09 Other disorders of plasma-protein metabolism, not elsewhere classified; N18.3 Chronic kidney disease, stage 3 (moderate); E78.5 Hyperlipidemia, unspecified; F41.9 Anxiety disorder, unspecified; R00.0 Tachycardia, unspecified; I73.9 Peripheral vascular disease, unspecified; R42 Dizziness and giddiness; K21.9 Gastro-esophageal reflux disease without esophagitis
CPT/HCPCS: 36415; 70551-TC; 71045-TC-FY; 71260-TC; 74177-TC; 80053; 81003; 82550; 82962; 83036; 83605; 83735; 84100; 84443; 84484; 85025; 87040; 93005; 93010; 97116-GP; 97161-GP; 99285-25; U0003

== ENCOUNTER 2020-11-12 10:51 | Inpatient (IN) | payer OTHER ==
[2020-11-12] MEDS ORDERED: SODIUM CHLORIDE 500 ML IV STA (11:56)
[2020-11-12] MEDS ORDERED: ALBUTEROL SO4 2.5/IPRATROPIUM 0.5 INH SOL 3 ML VIAL.NEB. NEB ONE ×2 (11:56→12:18)
[2020-11-12 12:26] LABS: BASO % 0.5 % (0-2.0); EOS % 0.6 % (0-4.5); HEMATOCRIT 39.3 % (32.4-45.2); HEMOGLOBIN 12.6 GM/dL (10.7-15.3); LYMPH % 7.4 % (8-40); MCH 26.3 pg (25.7-33.7); MEAN CELL VOLUME 82.2 fl (80-96); MEAN PLT VOLUME 8.1 fl (7.5-11.1); MONO % 8.2 % (3.8-10.2); NEUT % 83.3 % (42.8-82.8); PLATELET COUNT 271 K/MM3 (134-434); RBC 4.79 M/mm3 (3.60-5.2); RDW 15.8 % (11.6-15.6); WHITE BLOOD COUNT 10.7 K/mm3 (4.0-10.0)
[2020-11-12 13:06] LABS: CHLORIDE 102 mmol/L (98-107); SODIUM 135 mmol/L (136-145)
[2020-11-12 13:07] LABS: CALCIUM 8.8 mg/dL (8.5-10.1)
[2020-11-12 13:09] LABS: ANION GAP 4 MMOL/L (8-16); BLOOD UREA NITROGEN 20.7 mg/dL (7-18); CO2 28 mmol/L (21-32); GLUCOSE,RANDOM 286 mg/dL (74-106); MAGNESIUM 1.7 mg/dL (1.8-2.4)
[2020-11-12 13:11] LABS: CREATININE 1.1 mg/dL (0.55-1.3); SGOT/AST 6 U/L (15-37); SGPT/ALT 7 U/L (13-61)
[2020-11-12 13:13] LABS: BILIRUBIN,TOTAL 0.3 mg/dL (0.2-1); TOT PROT 6.2 g/dl (6.4-8.2)
[2020-11-12 13:14] LABS: ALK PHOS 107 U/L (45-117)
[2020-11-12] MEDS ORDERED: MAGNESIUM SULF 50% (8.12 MEQ/2 ML-1 GM VIAL) IVPB ONE (13:58)
[2020-11-12] MEDS ORDERED: MAGNESIUM 1GM/D5W - 1 GM/100 ML IVPB IVPB ONE (15:13)
[2020-11-12 15:39] LABS: EPI CELLS >36 /uL (0-25.1); HYALINE CASTS 2 /uL (0-3.1); PH,URINE 6.5 (5.0-8.0); URINE APPEARANCE CLEAR; URINE BACTERIA 465 /uL (0-1359); URINE BILIRUBIN NEGATIVE (NEGATIVE); URINE COLOR YELLOW; URINE GLUCOSE (UA) 2+ (NEGATIVE); URINE KETONE NEGATIVE (NEGATIVE); URINE LEUK ESTERASE NEGATIVE (NEGATIVE); URINE NITRITE NEGATIVE (NEGATIVE); URINE PROTEIN 4+ (NEGATIVE); URINE UROBILINOGEN 0.2 mg/dL (0.2-1.0); URINE WBC 23 /uL (0-25.8)
[2020-11-12 15:45] LABS: URINE RBC 63.4 /uL (0-23.9)
[2020-11-12 15:51] LABS: URINE CRYSTALS NON SEEN /hpf
[2020-11-12] MEDS ORDERED: D5-1/2NS+20 MEQ KCL - 20 MEQ/1,000 ML INFUS.BAG IV SCH (16:00)
[2020-11-12] MEDS ORDERED: cefTRIAXone SODIUM 1 GM VIAL ONE (18:50)
[2020-11-12] MEDS ORDERED: DEXTROSE 5%-WATER - 50 ML IVPB ONE (18:50)
[2020-11-12] MEDS: methylPREDNISolone NA SUCC 40 MG/1 ML VIAL IVPUSH SCH (18:51)
[2020-11-12] MEDS: CEFTRIAXONE 1 GM in DEXTROSE 5%-WATER - 50 ML IVPB SCH (18:51)
[2020-11-12] MEDS: INSULIN SLIDING SCALE (NOVOLOG) 1 VIAL SQ SCH ×2 (18:57→21:22)
[2020-11-12 19:10] VITALS: BMI 14.8
[2020-11-12] MEDS: HEPARIN NA (PORCINE) 5,000 UNITS/ML 1ML VIAL SQ SCH (21:16)
[2020-11-13] MEDS: methylPREDNISolone NA SUCC 40 MG/1 ML VIAL IVPUSH SCH ×3 (01:03→18:44)
[2020-11-13] MEDS: INSULIN SLIDING SCALE (NOVOLOG) 1 VIAL SQ SCH ×5 (06:06→21:13)
[2020-11-13] MEDS ORDERED: INSULIN (NOVOLOG) ASPART 100 UNITS/ML 10ML VIAL ONE ×3 (06:33→20:15)
[2020-11-13] MEDS: ALBUTEROL SO4 2.5/IPRATROPIUM 0.5 INH SOL 3 ML VIAL.NEB. NEB SCH ×3 (07:30→16:32)
[2020-11-13 07:57] LABS: BASO % 0.4 % (0-2.0); HEMATOCRIT 37.9 % (32.4-45.2); HEMOGLOBIN 12.1 GM/dL (10.7-15.3); LYMPH % 4.9 % (8-40); MCH 26.5 pg (25.7-33.7); MCHC 31.9 g/dl (32.0-36.0); MEAN PLT VOLUME 8.8 fl (7.5-11.1); MONO % 0.5 % (3.8-10.2); NEUT % 94.2 % (42.8-82.8); PLATELET COUNT 275 K/MM3 (134-434); RBC 4.56 M/mm3 (3.60-5.2); RDW 15.9 % (11.6-15.6); WHITE BLOOD COUNT 9.1 K/mm3 (4.0-10.0)
[2020-11-13 08:04] LABS: PROTHROMBIN TIME (PATIENT) 12.3 SEC (9.7-13.0)
[2020-11-13 08:21] LABS: CALCIUM 8.7 mg/dL (8.5-10.1); CHLORIDE 109 mmol/L (98-107); SODIUM 137 mmol/L (136-145)
[2020-11-13 08:22] LABS: ALBUMIN 1.9 g/dl (3.4-5.0); ANION GAP 6 MMOL/L (8-16); BLOOD UREA NITROGEN 23.8 mg/dL (7-18); CO2 23 mmol/L (21-32); GLUCOSE,RANDOM 391 mg/dL (74-106); MAGNESIUM 2.1 mg/dL (1.8-2.4)
[2020-11-13 08:25] LABS: CREATININE 1.1 mg/dL (0.55-1.3); PHOSPHOROUS 4.7 mg/dL (2.5-4.9); SGOT/AST 7 U/L (15-37); SGPT/ALT 7 U/L (13-61)
[2020-11-13 08:26] LABS: BILIRUBIN,TOTAL 0.2 mg/dL (0.2-1); TOT PROT 6.2 g/dl (6.4-8.2)
[2020-11-13 08:28] LABS: ALK PHOS 100 U/L (45-117)
[2020-11-13 08:46] LABS: ANISOCYTOSIS 1+; MACROCYTOSIS 0; PLATELET ESTIMATE NORMAL
[2020-11-13] MEDS ORDERED: cefTRIAXone SODIUM 1 GM VIAL ONE (09:45)
[2020-11-13] MEDS ORDERED: DEXTROSE 5%-WATER - 50 ML IVPB ONE (09:45)
[2020-11-13] MEDS: CEFTRIAXONE 1 GM in DEXTROSE 5%-WATER - 50 ML IVPB SCH (09:53)
[2020-11-13] MEDS: HEPARIN NA (PORCINE) 5,000 UNITS/ML 1ML VIAL SQ SCH ×2 (09:53→21:04)
[2020-11-13] MEDS: metoPROLOL SUCCINATE 25 MG TAB.SR.24H (FP) PO SCH (09:53)
[2020-11-13] MEDS ORDERED: ALBUTEROL SO4 0.083% IH SOL 2.5 MG/3 ML VIAL.NEB. NEB PRN (10:20)
[2020-11-13] MEDS ORDERED: DEXTROSE 5%-NORMAL SALINE 1,000 ML IV SCH (10:45)
[2020-11-13] MEDS ORDERED: NYSTATIN 500,000 UNITS/5 ML SUSPENSION PO ONE (11:30)
[2020-11-13] MEDS: INSULIN (LEVEMIR) 100 UNITS/ML UNITS SQ SCH ×2 (13:39→21:05)
[2020-11-13] MEDS ORDERED: INSULIN SLIDING SCALE (NOVOLOG) 1 VIAL SQ SCH (20:04)
[2020-11-14] MEDS: methylPREDNISolone NA SUCC 40 MG/1 ML VIAL IVPUSH SCH ×3 (01:01→18:20)
[2020-11-14] MEDS: INSULIN SLIDING SCALE (NOVOLOG) 1 VIAL SQ SCH ×6 (01:01→22:47)
[2020-11-14] MEDS ORDERED: INSULIN (NOVOLOG) ASPART 100 UNITS/ML 10ML VIAL ONE ×2 (09:22→22:42)
[2020-11-14] MEDS: NYSTATIN 500,000 UNITS/5 ML SUSPENSION PO PRN (09:42)
[2020-11-14] MEDS: metoPROLOL SUCCINATE 25 MG TAB.SR.24H (FP) PO SCH (09:42)
[2020-11-14] MEDS: HEPARIN NA (PORCINE) 5,000 UNITS/ML 1ML VIAL SQ SCH ×2 (09:43→22:46)
[2020-11-14] MEDS: INSULIN (LEVEMIR) 100 UNITS/ML UNITS SQ SCH ×2 (09:43→22:47)
[2020-11-14] MEDS: ALBUTEROL SO4 2.5/IPRATROPIUM 0.5 INH SOL 3 ML VIAL.NEB. NEB SCH ×4 (12:30→20:45)
[2020-11-14] MEDS: AMINO ACIDS/PROTEIN HYDROLYS 30 ML LIQUID.PKT PO SCH (17:07)
[2020-11-14] MEDS ORDERED: PT OWN MED DRAWER 7, Y5N ONE (21:31)
[2020-11-14] MEDS: MELATONIN 1 MG TABLET PO PRN (21:53)
[2020-11-15] MEDS: methylPREDNISolone NA SUCC 40 MG/1 ML VIAL IVPUSH SCH ×3 (02:33→17:27)
[2020-11-15] MEDS: INSULIN SLIDING SCALE (NOVOLOG) 1 VIAL SQ SCH ×6 (02:37→21:06)
[2020-11-15] MEDS: ALBUTEROL SO4 2.5/IPRATROPIUM 0.5 INH SOL 3 ML VIAL.NEB. NEB SCH ×4 (07:55→19:45)
[2020-11-15] MEDS: AMINO ACIDS/PROTEIN HYDROLYS 30 ML LIQUID.PKT PO SCH ×2 (08:20→17:13)
[2020-11-15] MEDS: metoPROLOL SUCCINATE 25 MG TAB.SR.24H (FP) PO SCH (09:42)
[2020-11-15] MEDS: HEPARIN NA (PORCINE) 5,000 UNITS/ML 1ML VIAL SQ SCH ×2 (09:43→21:04)
[2020-11-15] MEDS: INSULIN (LEVEMIR) 100 UNITS/ML UNITS SQ SCH ×2 (09:44→21:05)
[2020-11-15] MEDS ORDERED: INSULIN (LEVEMIR) 100 UNITS/ML UNITS SQ SCH (14:30)
[2020-11-15] MEDS: guaiFENesin 200 MG/10 ML 10 ML UNIT-DOSE CUPS PO PRN (16:13)
[2020-11-15] MEDS ORDERED: ACETAMINOPHEN 325 MG TABLET (FP) PO ONE (19:32)
[2020-11-15] MEDS ORDERED: INSULIN (NOVOLOG) ASPART 100 UNITS/ML 10ML VIAL ONE (20:51)
[2020-11-15] MEDS: NYSTATIN 500,000 UNITS/5 ML SUSPENSION PO PRN (21:07)
[2020-11-15] MEDS: MELATONIN 1 MG TABLET PO PRN (21:07)
[2020-11-16] MEDS: methylPREDNISolone NA SUCC 40 MG/1 ML VIAL IVPUSH SCH ×4 (01:24→22:01)
[2020-11-16] MEDS: INSULIN (LEVEMIR) 100 UNITS/ML UNITS SQ SCH ×2 (06:31→21:13)
[2020-11-16] MEDS: NYSTATIN 500,000 UNITS/5 ML SUSPENSION PO PRN ×2 (06:32→09:19)
[2020-11-16] MEDS: INSULIN SLIDING SCALE (NOVOLOG) 1 VIAL SQ SCH ×4 (06:32→21:14)
[2020-11-16 08:08] LABS: CALCIUM 8.3 mg/dL (8.5-10.1)
[2020-11-16 08:12] LABS: CREATININE 1.9 mg/dL (0.55-1.3)
[2020-11-16 08:14] LABS: BILIRUBIN,TOTAL 0.2 mg/dL (0.2-1); TOT PROT 5.6 g/dl (6.4-8.2)
[2020-11-16] MEDS: ALBUTEROL SO4 2.5/IPRATROPIUM 0.5 INH SOL 3 ML VIAL.NEB. NEB SCH ×4 (09:00→20:18)
[2020-11-16] MEDS: metoPROLOL SUCCINATE 25 MG TAB.SR.24H (FP) PO SCH (09:19)
[2020-11-16] MEDS: AMINO ACIDS/PROTEIN HYDROLYS 30 ML LIQUID.PKT PO SCH ×2 (09:19→16:50)
[2020-11-16] MEDS: HEPARIN NA (PORCINE) 5,000 UNITS/ML 1ML VIAL SQ SCH ×2 (09:19→21:13)
[2020-11-16] MEDS: guaiFENesin 200 MG/10 ML 10 ML UNIT-DOSE CUPS PO PRN (09:19)
[2020-11-16] MEDS ORDERED: ACETAMINOPHEN 325 MG TABLET (FP) PO PRN (15:01)
[2020-11-16 15:51] LABS: HEMATOCRIT 37.6 % (32.4-45.2); HEMOGLOBIN 11.7 GM/dL (10.7-15.3); MCH 25.9 pg (25.7-33.7); MCHC 31.1 g/dl (32.0-36.0); MEAN CELL VOLUME 83.3 fl (80-96); MEAN PLT VOLUME 9.1 fl (7.5-11.1); PLATELET COUNT 288 K/MM3 (134-434); RBC 4.52 M/mm3 (3.60-5.2); RDW 16.4 % (11.6-15.6); WHITE BLOOD COUNT 17.3 K/mm3 (4.0-10.0)
[2020-11-16] MEDS ORDERED: INSULIN (NOVOLOG) ASPART 100 UNITS/ML 10ML VIAL ONE (20:50)
[2020-11-16] MEDS: MELATONIN 1 MG TABLET PO PRN (20:56)
[2020-11-17 05:54] VITALS: BP 132/68; PULSE 49; TEMP 98.6
[2020-11-17] MEDS ORDERED: INSULIN (NOVOLOG) ASPART 100 UNITS/ML 10ML VIAL ONE (06:45)
[2020-11-17] MEDS: INSULIN SLIDING SCALE (NOVOLOG) 1 VIAL SQ SCH ×3 (06:49→17:03)
[2020-11-17] MEDS: INSULIN (LEVEMIR) 100 UNITS/ML UNITS SQ SCH (06:50)
[2020-11-17] MEDS: ALBUTEROL SO4 2.5/IPRATROPIUM 0.5 INH SOL 3 ML VIAL.NEB. NEB SCH ×2 (07:55→11:30)
[2020-11-17] MEDS: methylPREDNISolone NA SUCC 40 MG/1 ML VIAL IVPUSH SCH (10:09)
[2020-11-17] MEDS: metoPROLOL SUCCINATE 25 MG TAB.SR.24H (FP) PO SCH (10:09)
[2020-11-17] MEDS: AMINO ACIDS/PROTEIN HYDROLYS 30 ML LIQUID.PKT PO SCH ×2 (10:09→17:03)
[2020-11-17] MEDS: HEPARIN NA (PORCINE) 5,000 UNITS/ML 1ML VIAL SQ SCH (10:09)
[2020-11-17] MEDS ORDERED: FLUCONAZOLE 200 MG/NS 100 ML IVPB ONE (13:54)
== END 2020-11-17 18:26 | disposition home health service (06) | DRG 180 ==
LOC: JER 10:51 → JERBED 15:40 → J7W 16:44
PROVIDERS: ADMIT Family Medicine; ATTEND Family Medicine
DX: C34.90 Malignant neoplasm of unspecified part of unspecified bronchus or lung (principal); E43 Unspecified severe protein-calorie malnutrition; Z68.1 Body mass index [BMI] 19.9 or less, adult; J44.1 Chronic obstructive pulmonary disease with (acute) exacerbation; R64 Cachexia; B37.0 Candidal stomatitis; J90 Pleural effusion, not elsewhere classified; L97.508 Non-pressure chronic ulcer of other part of unspecified foot with other specified severity; N17.9 Acute kidney failure, unspecified; E78.5 Hyperlipidemia, unspecified; R62.7 Adult failure to thrive; E11.51 Type 2 diabetes mellitus with diabetic peripheral angiopathy without gangrene; F41.9 Anxiety disorder, unspecified; E11.610 Type 2 diabetes mellitus with diabetic neuropathic arthropathy; R11.2 Nausea with vomiting, unspecified; F17.210 Nicotine dependence, cigarettes, uncomplicated; K21.9 Gastro-esophageal reflux disease without esophagitis; I10 Essential (primary) hypertension; R06.00 Dyspnea, unspecified; E11.621 Type 2 diabetes mellitus with foot ulcer; R79.89 Other specified abnormal findings of blood chemistry; D72.829 Elevated white blood cell count, unspecified
CPT/HCPCS: 36415; 70553-TC; 71045-TC-FY; 71250-TC; 76775-TC; 80053; 81003; 82550; 82962; 83036; 83735; 84100; 84484; 85025; 85027; 85610; 87804; 93005; 93010; 93971-TC; 94640; 97116-GP; 97162-GP; 99285-25; A9579; C9803; J1644; U0003; U0005

== ENCOUNTER 2020-12-08 13:26 | Emergency (ER) | payer OTHER ==
[2020-12-08 14:06] VITALS: BMI 14.6
[2020-12-08] MEDS ORDERED: SODIUM CHLORIDE 0.9% 500 ML INFUS.BAG IV ONE (14:25)
[2020-12-08 15:18] LABS: BASO % 1.3 % (0-2.0); EOS % 2.3 % (0-4.5); HEMATOCRIT 39.2 % (32.4-45.2); HEMOGLOBIN 12.4 GM/dL (10.7-15.3); LYMPH % 14.1 % (8-40); MCHC 31.6 g/dl (32.0-36.0); MEAN CELL VOLUME 82.3 fl (80-96); MEAN PLT VOLUME 7.5 fl (7.5-11.1); MONO % 10.6 % (3.8-10.2); NEUT % 71.7 % (42.8-82.8); PLATELET COUNT 497 10^3/uL (134-434); RBC 4.76 M/mm3 (3.60-5.2); RDW 16.5 % (11.6-15.6); WHITE BLOOD COUNT 7.1 K/mm3 (4.0-10.0)
[2020-12-08 15:37] LABS: CHLORIDE 108 mmol/L (98-107); SODIUM 134 mmol/L (136-145)
[2020-12-08 15:40] LABS: ALBUMIN 2.1 g/dl (3.4-5.0); BLOOD UREA NITROGEN 18.8 mg/dL (7-18); CO2 27 mmol/L (21-32); GLUCOSE,RANDOM 155 mg/dL (74-106)
[2020-12-08 15:43] LABS: CREATININE 1.1 mg/dL (0.55-1.3); SGOT/AST 90 U/L (15-37)
[2020-12-08 15:45] LABS: BILIRUBIN,TOTAL 0.4 mg/dL (0.2-1); TOT PROT 6.8 g/dl (6.4-8.2)
[2020-12-08 15:46] LABS: ALK PHOS 117 U/L (45-117)
[2020-12-08 15:48] LABS: ANION GAP -1 MMOL/L (8-16); SGPT/ALT 14 U/L (13-61)
[2020-12-08 15:50] LABS: ANISOCYTOSIS 0; MACROCYTOSIS 0; PLATELET ESTIMATE INCREASED
[2020-12-08 17:13] LABS: CHLORIDE 109 mmol/L (98-107); SODIUM 139 mmol/L (136-145)
[2020-12-08 17:17] LABS: BLOOD UREA NITROGEN 17.8 mg/dL (7-18); CO2 29 mmol/L (21-32); GLUCOSE,RANDOM 124 mg/dL (74-106)
[2020-12-08 17:20] LABS: CREATININE 0.9 mg/dL (0.55-1.3)
[2020-12-08 17:23] LABS: ANION GAP 1 MMOL/L (8-16)
[2020-12-08] MEDS ORDERED: SODIUM ZIRCONIUM CYCLOSILICATE (LOKELMA) 5 GM PACKET PO SCH (19:30)
[2020-12-08] MEDS ORDERED: SODIUM ZIRCONIUM CYCLOSILICATE (LOKELMA) 5 GM PACKET ONE (19:34)
[2020-12-08 19:49] VITALS: BP 158/82; PULSE 95; TEMP 97.8
== END 2020-12-08 20:13 | disposition home or self-care (01) ==
LOC: JER 13:26
DX: R91.8 Other nonspecific abnormal finding of lung field (principal)
CPT/HCPCS: 36415; 71045-TC-FY; 80048; 80053; 84132; 85025; 93005; 93010; 99285-25

== ENCOUNTER 2021-01-11 16:04 | Inpatient (IN) | payer OTHER ==
[2021-01-11] MEDS ORDERED: ACETAMINOPHEN 1000 MG/100 ML VIAL (NON FORMULARY) IVPB ONE (16:56)
[2021-01-11] MEDS ORDERED: ACETAMINOPHEN INJECTION 100 ML IVPB ONE (17:31)
[2021-01-11 17:49] LABS: BASO % 0.9 % (0-2.0); HEMATOCRIT 37.5 % (32.4-45.2); HEMOGLOBIN 11.7 GM/dL (10.7-15.3); LYMPH % 8.2 % (8-40); MCH 25.5 pg (25.7-33.7); MCHC 31.3 g/dl (32.0-36.0); MEAN CELL VOLUME 81.3 fl (80-96); MEAN PLT VOLUME 7.5 fl (7.5-11.1); MONO % 7.2 % (3.8-10.2); NEUT % 82.7 % (42.8-82.8); PLATELET COUNT 288 10^3/uL (134-434); RBC 4.61 M/mm3 (3.60-5.2); RDW 16.8 % (11.6-15.6); WHITE BLOOD COUNT 13.6 K/mm3 (4.0-10.0)
[2021-01-11 17:53] LABS: INR 1.05 (0.83-1.09); PROTHROMBIN TIME (PATIENT) 12.9 SEC (9.7-13.0)
[2021-01-11 17:56] LABS: ACTIVATED PTT 32.3 SECONDS (25.2-36.5)
[2021-01-11 18:02] LABS: CHLORIDE 105 mmol/L (98-107); SODIUM 136 mmol/L (136-145)
[2021-01-11 18:04] LABS: ALBUMIN 2.4 g/dl (3.4-5.0); ANION GAP 9 MMOL/L (8-16); BLOOD UREA NITROGEN 32.9 mg/dL (7-18); CALCIUM 8.6 mg/dL (8.5-10.1); CO2 23 mmol/L (21-32); GLUCOSE,RANDOM 79 mg/dL (74-106)
[2021-01-11 18:07] LABS: SGOT/AST 27 U/L (15-37); SGPT/ALT 10 U/L (13-61)
[2021-01-11 18:09] LABS: BILIRUBIN,TOTAL 0.4 mg/dL (0.2-1); TOT PROT 6.7 g/dl (6.4-8.2)
[2021-01-11 18:10] LABS: ALK PHOS 71 U/L (45-117)
[2021-01-11 18:12] LABS: N-TERMINAL BNP 2186.5 pg/ml (5-450)
[2021-01-11] MEDS ORDERED: SODIUM CHLORIDE 0.9% 500 ML INFUS.BAG IV ONE (18:18)
[2021-01-11] MEDS ORDERED: morphine CARPU-JECT 2 MG/1 ML DISP.SYRIN IVPUSH ONE (19:39)
[2021-01-11] MEDS ORDERED: MORPHINE SULFATE 2 MG/ML VIAL ONE (19:50)
[2021-01-11 20:22] LABS: BLOOD UREA NITROGEN 33.3 mg/dL (7-18); CALCIUM 8.3 mg/dL (8.5-10.1); CREATININE 1.8 mg/dL (0.55-1.3)
[2021-01-11 20:29] LABS: EPI CELLS 3 /uL (0-25.1); HYALINE CASTS 1 /uL (0-3.1); PH,URINE 5.5 (5.0-8.0); URINE APPEARANCE CLEAR; URINE BACTERIA 0 /uL (0-1359); URINE BILIRUBIN NEGATIVE (NEGATIVE); URINE COLOR YELLOW; URINE GLUCOSE (UA) NEGATIVE (NEGATIVE); URINE KETONE NEGATIVE (NEGATIVE); URINE LEUK ESTERASE NEGATIVE (NEGATIVE); URINE NITRITE NEGATIVE (NEGATIVE); URINE PROTEIN 3+ (NEGATIVE); URINE RBC 25 /uL (0-23.9); URINE WBC 3 /uL (0-25.8)
[2021-01-11] MEDS ORDERED: ALBUTEROL SO4 HFA INHALER IH ONE ×2 (21:42→22:06)
[2021-01-11] MEDS ORDERED: SODIUM ZIRCONIUM CYCLOSILICATE (LOKELMA) 5 GM PACKET PO ONE (22:05)
[2021-01-11] MEDS ORDERED: SODIUM ZIRCONIUM CYCLOSILICATE (LOKELMA) 5 GM PACKET ONE (22:06)
[2021-01-12] MEDS: SODIUM CHLORIDE 1,000 ML IV SCH ×2 (01:30→23:35)
[2021-01-12 08:45] LABS: BASO % 0.5 % (0-2.0); HEMATOCRIT 39.4 % (32.4-45.2); HEMOGLOBIN 12.4 GM/dL (10.7-15.3); LYMPH % 7.7 % (8-40); MCH 25.6 pg (25.7-33.7); MCHC 31.5 g/dl (32.0-36.0); MEAN CELL VOLUME 81.4 fl (80-96); MEAN PLT VOLUME 7.5 fl (7.5-11.1); MONO % 7.1 % (3.8-10.2); NEUT % 83.7 % (42.8-82.8); PLATELET COUNT 284 10^3/uL (134-434); RBC 4.84 M/mm3 (3.60-5.2); RDW 17.1 % (11.6-15.6)
[2021-01-12 08:59] LABS: BLOOD UREA NITROGEN 30.1 mg/dL (7-18); CALCIUM 8.7 mg/dL (8.5-10.1)
[2021-01-12 09:00] LABS: ALBUMIN 2.2 g/dl (3.4-5.0)
[2021-01-12 09:03] LABS: CREATININE 1.6 mg/dL (0.55-1.3)
[2021-01-12 09:04] LABS: BILIRUBIN,TOTAL 0.3 mg/dL (0.2-1); TOT PROT 6.2 g/dl (6.4-8.2)
[2021-01-12] MEDS ORDERED: FAMOTIDINE 20 MG TABLET PO SCH (10:00)
[2021-01-12] MEDS: ACETAMINOPHEN 500 MG TABLET (FP) PO PRN (14:10)
[2021-01-12] MEDS: METOPROLOL TARTRATE 25 MG TABLET (FP) PO SCH (14:11)
[2021-01-12] MEDS ORDERED: SODIUM ZIRCONIUM CYCLOSILICATE (LOKELMA) 5 GM PACKET PO ONE (21:43)
[2021-01-13 08:49] LABS: BASO % 0.5 % (0-2.0); EOS % 0.6 % (0-4.5); HEMATOCRIT 37.6 % (32.4-45.2); HEMOGLOBIN 11.6 GM/dL (10.7-15.3); LYMPH % 6.9 % (8-40); MCH 25.3 pg (25.7-33.7); MCHC 30.9 g/dl (32.0-36.0); MEAN PLT VOLUME 7.7 fl (7.5-11.1); MONO % 7.5 % (3.8-10.2); NEUT % 84.5 % (42.8-82.8); PLATELET COUNT 257 10^3/uL (134-434); RBC 4.58 M/mm3 (3.60-5.2); RDW 17.2 % (11.6-15.6); WHITE BLOOD COUNT 14.1 K/mm3 (4.0-10.0)
[2021-01-13 09:21] LABS: BLOOD UREA NITROGEN 25.6 mg/dL (7-18); CALCIUM 8.4 mg/dL (8.5-10.1)
[2021-01-13 09:25] LABS: CREATININE 1.3 mg/dL (0.55-1.3)
[2021-01-13] MEDS: METOPROLOL TARTRATE 25 MG TABLET (FP) PO SCH (09:44)
[2021-01-13] MEDS: FAMOTIDINE 10 MG TABLET PO SCH (09:44)
[2021-01-13] MEDS ORDERED: DOCUSATE SODIUM 100 MG CAPSULE (FP) PO PRN (12:00)
[2021-01-13] MEDS ORDERED: FENTANYL PATCH WASTE TD PRN (12:00)
[2021-01-13] MEDS: fentaNYL 12mcg/hr PATCH.TD72 TD SCH (12:45)
[2021-01-13] MEDS: NICOTINE 21 MG/24 HOURS TOPICAL PATCH TD SCH (12:48)
[2021-01-13] MEDS: SODIUM CHLORIDE 1,000 ML IV SCH (23:30)
[2021-01-14] MEDS: ACETAMINOPHEN 500 MG TABLET (FP) PO PRN ×3 (02:15→20:09)
[2021-01-14] MEDS: SODIUM CHLORIDE 1,000 ML IV SCH (02:26)
[2021-01-14] MEDS: FAMOTIDINE 10 MG TABLET PO SCH (09:27)
[2021-01-14] MEDS: METOPROLOL TARTRATE 25 MG TABLET (FP) PO SCH (09:27)
[2021-01-14] MEDS: NICOTINE 21 MG/24 HOURS TOPICAL PATCH TD SCH (09:27)
[2021-01-14 09:34] LABS: BASO % 0.7 % (0-2.0); CALCIUM 7.9 mg/dL (8.5-10.1); EOS % 0.6 % (0-4.5); HEMATOCRIT 37.2 % (32.4-45.2); HEMOGLOBIN 11.3 GM/dL (10.7-15.3); LYMPH % 9.7 % (8-40); MCHC 30.3 g/dl (32.0-36.0); MEAN CELL VOLUME 82.4 fl (80-96); MONO % 7.7 % (3.8-10.2); NEUT % 81.3 % (42.8-82.8); PLATELET COUNT 249 10^3/uL (134-434); RBC 4.51 M/mm3 (3.60-5.2); RDW 17.7 % (11.6-15.6); WHITE BLOOD COUNT 13.2 K/mm3 (4.0-10.0)
[2021-01-14 09:35] LABS: ALBUMIN 1.8 g/dl (3.4-5.0); BLOOD UREA NITROGEN 20.2 mg/dL (7-18)
[2021-01-14 09:38] LABS: CREATININE 0.9 mg/dL (0.55-1.3)
[2021-01-14 09:40] LABS: BILIRUBIN,TOTAL 0.5 mg/dL (0.2-1); TOT PROT 5.3 g/dl (6.4-8.2)
[2021-01-15] MEDS: NICOTINE 21 MG/24 HOURS TOPICAL PATCH TD SCH (09:49)
[2021-01-15] MEDS: METOPROLOL TARTRATE 25 MG TABLET (FP) PO SCH (09:49)
[2021-01-15] MEDS: FAMOTIDINE 10 MG TABLET PO SCH (09:49)
[2021-01-15 11:25] LABS: BASO % 0.5 % (0-2.0); EOS % 0.4 % (0-4.5); HEMATOCRIT 36.1 % (32.4-45.2); HEMOGLOBIN 11.1 GM/dL (10.7-15.3); LYMPH % 6.8 % (8-40); MCH 25.4 pg (25.7-33.7); MCHC 30.8 g/dl (32.0-36.0); MEAN CELL VOLUME 82.4 fl (80-96); MEAN PLT VOLUME 7.8 fl (7.5-11.1); MONO % 5.3 % (3.8-10.2); PLATELET COUNT 264 10^3/uL (134-434); RBC 4.37 M/mm3 (3.60-5.2); RDW 17.6 % (11.6-15.6); WHITE BLOOD COUNT 13.1 K/mm3 (4.0-10.0)
[2021-01-15 11:40] LABS: ALBUMIN 1.9 g/dl (3.4-5.0); CALCIUM 8.4 mg/dL (8.5-10.1)
[2021-01-15 11:41] LABS: BLOOD UREA NITROGEN 14.5 mg/dL (7-18)
[2021-01-15 11:45] LABS: CREATININE 0.9 mg/dL (0.55-1.3)
[2021-01-15] MEDS: ACETAMINOPHEN 500 MG TABLET (FP) PO PRN (13:34)
[2021-01-16] MEDS: METOPROLOL TARTRATE 25 MG TABLET (FP) PO SCH (11:09)
[2021-01-16] MEDS: NICOTINE 21 MG/24 HOURS TOPICAL PATCH TD SCH (11:09)
[2021-01-16] MEDS: FAMOTIDINE 10 MG TABLET PO SCH (11:09)
[2021-01-16 12:55] VITALS: BMI 14.4
[2021-01-16] MEDS: fentaNYL 12mcg/hr PATCH.TD72 TD SCH (13:15)
[2021-01-16] MEDS: ACETAMINOPHEN 500 MG TABLET (FP) PO PRN ×2 (15:15→21:05)
[2021-01-16] MEDS: AMINO ACIDS/PROTEIN HYDROLYS 30 ML LIQUID.PKT PO SCH (18:52)
[2021-01-17 09:13] VITALS: BP 183/91; PULSE 74; TEMP 97.6
[2021-01-17] MEDS: AMINO ACIDS/PROTEIN HYDROLYS 30 ML LIQUID.PKT PO SCH (09:53)
[2021-01-17] MEDS: METOPROLOL TARTRATE 25 MG TABLET (FP) PO SCH (09:53)
[2021-01-17] MEDS: NICOTINE 21 MG/24 HOURS TOPICAL PATCH TD SCH (09:53)
[2021-01-17] MEDS: FAMOTIDINE 10 MG TABLET PO SCH (09:53)
[2021-01-17] MEDS ORDERED: MULTIVITAMINS THER W-MINERALS COMBO TABLET (FP) PO SCH (10:00)
[2021-01-17 10:05] LABS: BLOOD UREA NITROGEN 16.6 mg/dL (7-18); CALCIUM 8.5 mg/dL (8.5-10.1)
[2021-01-17 10:08] LABS: CREATININE 0.8 mg/dL (0.55-1.3)
== END 2021-01-17 14:30 | disposition hospice, home (50) | DRG 180 ==
LOC: JER 16:04 → JERBED 18:30 → J6S 01-12 03:12
PROVIDERS: ADMIT Internal Medicine; ATTEND Family Medicine
DX: C34.90 Malignant neoplasm of unspecified part of unspecified bronchus or lung (principal); E43 Unspecified severe protein-calorie malnutrition; N17.9 Acute kidney failure, unspecified; R64 Cachexia; Z68.1 Body mass index [BMI] 19.9 or less, adult; I10 Essential (primary) hypertension; E11.51 Type 2 diabetes mellitus with diabetic peripheral angiopathy without gangrene; K21.9 Gastro-esophageal reflux disease without esophagitis; E78.00 Pure hypercholesterolemia, unspecified; R62.7 Adult failure to thrive; Z79.4 Long term (current) use of insulin; E86.0 Dehydration; E87.5 Hyperkalemia; J43.9 Emphysema, unspecified; F43.22 Adjustment disorder with anxiety; M79.604 Pain in right leg
CPT/HCPCS: 36415; 71045-TC-FY; 73523-TC-FY; 73552-TC-RT-FY; 73590-TC-RT-FY; 80048; 80053; 81003; 82040; 82436; 82550; 82553; 83036; 83735; 83880; 83930; 83935; 84100; 84133; 84300; 84484; 85025; 85610; 85730; 87086; 93005; 93010; 93971-TC; 97116-GP; 97162-GP; 99285-25; C9803; J0131; U0003; U0005

== ENCOUNTER 2021-02-06 14:37 | Inpatient (IN) | payer OTHER ==
[2021-02-06] MEDS ORDERED: ONDANSETRON 4 MG/2 ML VIAL IVPUSH ONE (15:30)
[2021-02-06] MEDS ORDERED: ACETAMINOPHEN 500 MG TABLET (FP) PO ONE (15:32)
[2021-02-06] MEDS ORDERED: ACETAMINOPHEN 325 MG TABLET (FP) ONE (15:51)
[2021-02-06 16:14] LABS: EOS % 0.8 % (0-4.5); HEMATOCRIT 34.9 % (32.4-45.2); HEMOGLOBIN 11.1 GM/dL (10.7-15.3); LYMPH % 11.1 % (8-40); MCH 26.2 pg (25.7-33.7); MCHC 31.7 g/dl (32.0-36.0); MEAN CELL VOLUME 82.5 fl (80-96); MEAN PLT VOLUME 7.9 fl (7.5-11.1); MONO % 8.3 % (3.8-10.2); NEUT % 78.8 % (42.8-82.8); PLATELET COUNT 273 10^3/uL (134-434); RBC 4.23 M/mm3 (3.60-5.2); RDW 18.2 % (11.6-15.6); WHITE BLOOD COUNT 9.7 K/mm3 (4.0-10.0)
[2021-02-06 16:36] LABS: CHLORIDE 103 mmol/L (98-107); SODIUM 140 mmol/L (136-145)
[2021-02-06 16:38] LABS: CALCIUM 8.7 mg/dL (8.5-10.1)
[2021-02-06 16:39] LABS: ALBUMIN 2.2 g/dl (3.4-5.0); ANION GAP 6 MMOL/L (8-16); BLOOD UREA NITROGEN 24.3 mg/dL (7-18); CO2 31 mmol/L (21-32); GLUCOSE,RANDOM 137 mg/dL (74-106)
[2021-02-06 16:42] LABS: CREATININE 1.2 mg/dL (0.55-1.3); SGOT/AST 10 U/L (15-37); SGPT/ALT 9 U/L (13-61)
[2021-02-06 16:43] LABS: BILIRUBIN,TOTAL 0.4 mg/dL (0.2-1); TOT PROT 6.3 g/dl (6.4-8.2)
[2021-02-06 16:44] LABS: ALK PHOS 75 U/L (45-117)
[2021-02-06 16:47] LABS: VENOUS BASE EXCESS 1.9 mmol/L (-2-2); VENOUS O2 SATURATION 35.3 % (70-80); VENOUS PCO2 56.7 mmHg (38-52); VENOUS PH 7.324 (7.310-7.410)
[2021-02-06] MEDS ORDERED: FUROSEMIDE 40 MG/4 ML INJECTABLE VIAL IVPUSH ONE (19:53)
[2021-02-06] MEDS ORDERED: INSULIN REGULAR HUMAN 100 UNITS/ML *VIAL IVPUSH ONE (19:54)
[2021-02-06] MEDS ORDERED: DEXTROSE 50%-WATER - 25 GM/50 ML VIAL IVPUSH ONE (19:56)
[2021-02-06] MEDS ORDERED: CALCIUM GLUCONATE 10% - 1,000 MG/10 ML VIAL IVPB ONE (20:03)
[2021-02-06] MEDS ORDERED: FUROSEMIDE 40 MG/4 ML INJECTABLE VIAL ONE (20:18)
[2021-02-06] MEDS ORDERED: DEXTROSE 50%-WATER 25 GM/50 ML DISP.SYRIN ONE (20:18)
[2021-02-06] MEDS ORDERED: CALCIUM GLUCONATE 10% - 1,000 MG/10 ML VIAL ONE (20:18)
[2021-02-06] MEDS ORDERED: ALBUTEROL SO4 2.5/IPRATROPIUM 0.5 INH SOL 3 ML VIAL.NEB. NEB ONE (20:19)
[2021-02-06] MEDS ORDERED: INSULIN REGULAR HUMAN 100 UNITS/ML *VIAL ONE (20:20)
[2021-02-06] MEDS: ALBUTEROL SO4 2.5/IPRATROPIUM 0.5 INH SOL 3 ML VIAL.NEB. NEB SCH ×4 (20:39→21:42)
[2021-02-06] MEDS ORDERED: ALBUTEROL SO4 0.083% IH SOL 2.5 MG/3 ML VIAL.NEB. NEB PRN (21:28)
[2021-02-07 04:47] VITALS: BMI 13.6
[2021-02-07] MEDS ORDERED: DEXTROSE 50%-WATER - 25 GM/50 ML VIAL IVPUSH ONE (06:55)
[2021-02-07] MEDS ORDERED: DEXTROSE 50%-WATER - 25 GM/50 ML VIAL ONE (06:58)
[2021-02-07] MEDS ORDERED: sitaGLIPtin PHOSPHATE 50 MG TABLET PO SCH (07:00)
[2021-02-07] MEDS: INSULIN SLIDING SCALE (NOVOLOG) 1 VIAL SQ SCH ×4 (07:35→21:21)
[2021-02-07 12:07] LABS: BASO % 0.4 % (0-2.0); EOS % 0.1 % (0-4.5); HEMATOCRIT 35.6 % (32.4-45.2); HEMOGLOBIN 11.2 GM/dL (10.7-15.3); LYMPH % 5.6 % (8-40); MCHC 31.5 g/dl (32.0-36.0); MEAN CELL VOLUME 82.6 fl (80-96); MEAN PLT VOLUME 8.1 fl (7.5-11.1); MONO % 5.7 % (3.8-10.2); NEUT % 88.2 % (42.8-82.8); PLATELET COUNT 248 10^3/uL (134-434); RBC 4.31 M/mm3 (3.60-5.2); RDW 18.6 % (11.6-15.6); WHITE BLOOD COUNT 9.3 K/mm3 (4.0-10.0)
[2021-02-07 12:18] LABS: CALCIUM 8.9 mg/dL (8.5-10.1)
[2021-02-07 12:22] LABS: CREATININE 1.2 mg/dL (0.55-1.3)
[2021-02-07] MEDS: HEPARIN NA (PORCINE) 5,000 UNITS/ML 1ML VIAL SQ SCH ×2 (12:22→21:22)
[2021-02-07 12:23] LABS: BILIRUBIN,TOTAL 0.4 mg/dL (0.2-1)
[2021-02-07] MEDS: CLOPIDOGREL BISULFATE 75 MG TABLET (FP) PO SCH (12:23)
[2021-02-07] MEDS: metoPROLOL SUCCINATE 25 MG TAB.SR.24H (FP) PO SCH (12:23)
[2021-02-07 12:24] LABS: TOT PROT 5.9 g/dl (6.4-8.2)
[2021-02-07] MEDS: NYSTATIN 500,000 UNITS/5 ML SUSPENSION PO SCH (17:54)
[2021-02-07] MEDS: ACETAMINOPHEN 325 MG TABLET (FP) PO PRN (19:55)
[2021-02-08] MEDS: NYSTATIN 500,000 UNITS/5 ML SUSPENSION PO SCH ×4 (01:00→18:06)
[2021-02-08] MEDS: INSULIN SLIDING SCALE (NOVOLOG) 1 VIAL SQ SCH ×4 (06:32→21:44)
[2021-02-08] MEDS: metoPROLOL SUCCINATE 25 MG TAB.SR.24H (FP) PO SCH (09:45)
[2021-02-08] MEDS: CLOPIDOGREL BISULFATE 75 MG TABLET (FP) PO SCH (09:46)
[2021-02-08] MEDS: ACETAMINOPHEN 325 MG TABLET (FP) PO PRN ×2 (09:46→20:39)
[2021-02-08] MEDS: HEPARIN NA (PORCINE) 5,000 UNITS/ML 1ML VIAL SQ SCH ×2 (09:46→21:45)
[2021-02-08 18:18] VITALS: TEMP 97.8
[2021-02-09] MEDS: NYSTATIN 500,000 UNITS/5 ML SUSPENSION PO SCH ×3 (01:05→13:07)
[2021-02-09] MEDS: INSULIN SLIDING SCALE (NOVOLOG) 1 VIAL SQ SCH ×2 (06:24→12:27)
[2021-02-09 06:28] VITALS: PULSE 74
[2021-02-09] MEDS: CLOPIDOGREL BISULFATE 75 MG TABLET (FP) PO SCH (10:18)
[2021-02-09] MEDS: HEPARIN NA (PORCINE) 5,000 UNITS/ML 1ML VIAL SQ SCH (10:18)
[2021-02-09] MEDS: metoPROLOL SUCCINATE 25 MG TAB.SR.24H (FP) PO SCH (10:18)
[2021-02-09 10:20] VITALS: BP 148/65
== END 2021-02-09 13:58 | disposition home or self-care (01) | DRG 190 ==
LOC: JER 14:37 → JERBED 16:35 → J5S 02-07 04:08
PROVIDERS: ADMIT Family Medicine; ATTEND Family Medicine
DX: J44.1 Chronic obstructive pulmonary disease with (acute) exacerbation (principal); E43 Unspecified severe protein-calorie malnutrition; G93.41 Metabolic encephalopathy; J90 Pleural effusion, not elsewhere classified; Z68.1 Body mass index [BMI] 19.9 or less, adult; R64 Cachexia; C34.91 Malignant neoplasm of unspecified part of right bronchus or lung; C34.92 Malignant neoplasm of unspecified part of left bronchus or lung; R42 Dizziness and giddiness; E11.9 Type 2 diabetes mellitus without complications; K21.9 Gastro-esophageal reflux disease without esophagitis; E87.5 Hyperkalemia; R62.7 Adult failure to thrive; F17.210 Nicotine dependence, cigarettes, uncomplicated; E11.40 Type 2 diabetes mellitus with diabetic neuropathy, unspecified; F41.9 Anxiety disorder, unspecified; E78.00 Pure hypercholesterolemia, unspecified
CPT/HCPCS: 36415; 71045-TC-FY; 80053; 82550; 82803; 82962; 84484; 85025; 93005; 93010; 94640; 99285-25; C9803; J1644; U0003; U0005

== ENCOUNTER 2021-02-19 20:35 | Inpatient (IN) | payer OTHER ==
[2021-02-19] MEDS ORDERED: METOCLOPRAMIDE HCL INJECTION 10 MG/2 ML VIAL IVPUSH ONE (21:10)
[2021-02-19] MEDS ORDERED: METOCLOPRAMIDE HCL INJECTION 10 MG/2 ML VIAL ONE (21:33)
[2021-02-19] MEDS ORDERED: PIPERACILLIN/TAZOB 3.375 GM 3.375 GM in DEXTROSE 5%-WATER - 50 ML IVPB ONE (22:14)
[2021-02-19] MEDS ORDERED: ACETAMINOPHEN 1000 MG/100 ML VIAL (NON FORMULARY) IVPB ONE (22:14)
[2021-02-19 22:26] LABS: BASO % 0.9 % (0-2.0); EOS % 0.9 % (0-4.5); HEMATOCRIT 35.8 % (32.4-45.2); HEMOGLOBIN 11.4 GM/dL (10.7-15.3); MCH 26.3 pg (25.7-33.7); MCHC 31.7 g/dl (32.0-36.0); MEAN PLT VOLUME 7.7 fl (7.5-11.1); MONO % 7.9 % (3.8-10.2); NEUT % 82.3 % (42.8-82.8); PLATELET COUNT 313 10^3/uL (134-434); RBC 4.32 M/mm3 (3.60-5.2); RDW 19.3 % (11.6-15.6); WHITE BLOOD COUNT 10.9 K/mm3 (4.0-10.0)
[2021-02-19 22:27] LABS: VENOUS BASE EXCESS 1.1 mmol/L (-2-2); VENOUS O2 SATURATION 52.2 % (70-80); VENOUS PCO2 50.4 mmHg (38-52); VENOUS PH 7.353 (7.310-7.410)
[2021-02-19 22:33] LABS: INR 0.99 (0.83-1.09)
[2021-02-19 22:36] LABS: ACTIVATED PTT 34.8 SECONDS (25.2-36.5)
[2021-02-19] MEDS ORDERED: ACETAMINOPHEN INJECTION 100 ML IVPB ONE (22:41)
[2021-02-19] MEDS ORDERED: PIPERACILLIN/TAZOB 3.375 GM 3.375 GM/50 ML BAG IVPB ONE (22:42)
[2021-02-19 22:52] LABS: CHLORIDE 106 mmol/L (98-107); SODIUM 137 mmol/L (136-145)
[2021-02-19] MEDS ORDERED: morphine CARPU-JECT 2 MG/1 ML DISP.SYRIN IVPUSH ONE (22:53)
[2021-02-19 22:54] LABS: ANION GAP 4 MMOL/L (8-16); BLOOD UREA NITROGEN 32.2 mg/dL (7-18); CALCIUM 9.1 mg/dL (8.5-10.1); CO2 27 mmol/L (21-32); GLUCOSE,RANDOM 157 mg/dL (74-106); MAGNESIUM 2.1 mg/dL (1.8-2.4)
[2021-02-19 22:57] LABS: CREATININE 0.9 mg/dL (0.55-1.3); PHOSPHOROUS 4.1 mg/dL (2.5-4.9); SGOT/AST 13 U/L (15-37); SGPT/ALT 13 U/L (13-61)
[2021-02-19 22:59] LABS: BILIRUBIN,TOTAL 0.3 mg/dL (0.2-1); TOT PROT 7.1 g/dl (6.4-8.2)
[2021-02-19] MEDS ORDERED: ONDANSETRON 4 MG/2 ML VIAL IVPUSH ONE (22:59)
[2021-02-19 23:01] LABS: ALK PHOS 85 U/L (45-117)
[2021-02-19 23:03] LABS: N-TERMINAL BNP 11894.2 pg/ml (5-450)
[2021-02-19 23:09] LABS: ALBUMIN 2.5 g/dl (3.4-5.0)
[2021-02-19] MEDS ORDERED: MORPHINE SULFATE 2 MG/ML VIAL ONE (23:11)
[2021-02-20] MEDS ORDERED: VANCOMYCIN 1 GM in D5W (PRE-DOCKED) 1,000 MG/250 ML IVPB ONE (00:53)
[2021-02-20] MEDS ORDERED: VANCOMYCIN 1 GRAM (PRE-DOCKED) 1,000 MG/250 ML BAG IVPB ONE (02:39)
[2021-02-20] MEDS ORDERED: ACETAMINOPHEN 325 MG TABLET (FP) PO PRN (05:24)
[2021-02-20] MEDS ORDERED: NYSTATIN 500,000 UNITS TABLET PO PRN (05:30)
[2021-02-20] MEDS ORDERED: guaiFENesin 200 MG/10 ML 10 ML UNIT-DOSE CUPS PO PRN (05:31)
[2021-02-20] MEDS: INSULIN SLIDING SCALE (NOVOLOG) 1 VIAL SQ SCH ×4 (06:36→21:19)
[2021-02-20] MEDS ORDERED: ONDANSETRON 4 MG/2 ML VIAL IVPUSH PRN (06:40)
[2021-02-20] MEDS: GABAPENTIN 100 MG CAPSULE PO SCH ×3 (06:44→21:19)
[2021-02-20] MEDS ORDERED: DEXTROSE 5%-WATER - 50 ML IVPB ONE ×3 (08:43→21:12)
[2021-02-20] MEDS ORDERED: PIPERACILLIN/TAZOBACTAM 2.25 GM VIAL IVPB ONE ×3 (08:43→21:11)
[2021-02-20] MEDS: PIPERACILLIN/TAZOB 2.25 GM 2.25 GM in DEXTROSE 5%-WATER - 50 ML IVPB SCH ×3 (08:51→21:19)
[2021-02-20] MEDS: AMINO ACIDS/PROTEIN HYDROLYS 30 ML LIQUID.PKT PO SCH ×3 (08:51→16:54)
[2021-02-20] MEDS ORDERED: NAPH,MB-DB/K PH,MBDB POWDER PACKET PO SCH (10:00)
[2021-02-20] MEDS: metoPROLOL SUCCINATE 25 MG TAB.SR.24H (FP) PO SCH (10:29)
[2021-02-20] MEDS: CLOPIDOGREL BISULFATE 75 MG TABLET (FP) PO SCH (10:30)
[2021-02-20] MEDS: MINERAL OIL/PET HY-PHL TOPICAL OINTMENT 454 GM JAR TP SCH (14:35)
[2021-02-20 21:07] LABS: EPI CELLS >36 /uL (0-25.1); HYALINE CASTS 4 /uL (0-3.1); URINE APPEARANCE CLOUDY; URINE BACTERIA 27 /uL (0-1359); URINE BILIRUBIN NEGATIVE (NEGATIVE); URINE COLOR YELLOW; URINE GLUCOSE (UA) TRACE (NEGATIVE); URINE KETONE NEGATIVE (NEGATIVE); URINE LEUK ESTERASE NEGATIVE (NEGATIVE); URINE NITRITE NEGATIVE (NEGATIVE); URINE PROTEIN 4+ (NEGATIVE); URINE UROBILINOGEN 0.2 mg/dL (0.2-1.0)
[2021-02-20] MEDS: MIRTAZAPINE 15 MG TABLET (FP) PO SCH (21:19)
[2021-02-20 23:56] LABS: URINE RBC 32.9 /uL (0-23.9); URINE WBC 55.5 /uL (0-25.8)
[2021-02-21] MEDS ORDERED: DEXTROSE 5%-WATER - 50 ML IVPB ONE ×2 (02:14→22:55)
[2021-02-21] MEDS ORDERED: PIPERACILLIN/TAZOBACTAM 2.25 GM VIAL IVPB ONE ×2 (02:14→22:55)
[2021-02-21] MEDS ORDERED: PT OWN MED DRAWER 7, Y5N ONE (02:19)
[2021-02-21] MEDS: PIPERACILLIN/TAZOB 2.25 GM 2.25 GM in DEXTROSE 5%-WATER - 50 ML IVPB SCH ×2 (02:21→23:13)
[2021-02-21] MEDS ORDERED: VANCOMYCIN 500 MG in DEXTROSE 5%-WATER 100 ML IVPB SCH (03:00)
[2021-02-21] MEDS: ALBUTEROL SO4 0.083% IH SOL 2.5 MG/3 ML VIAL.NEB. NEB PRN (05:06)
[2021-02-21] MEDS: INSULIN SLIDING SCALE (NOVOLOG) 1 VIAL SQ SCH ×4 (06:17→21:16)
[2021-02-21] MEDS: GABAPENTIN 100 MG CAPSULE PO SCH ×3 (06:17→21:12)
[2021-02-21] MEDS: AMINO ACIDS/PROTEIN HYDROLYS 30 ML LIQUID.PKT PO SCH (09:04)
[2021-02-21] MEDS: MINERAL OIL/PET HY-PHL TOPICAL OINTMENT 454 GM JAR TP SCH (09:04)
[2021-02-21] MEDS: metoPROLOL SUCCINATE 25 MG TAB.SR.24H (FP) PO SCH (09:05)
[2021-02-21] MEDS: CLOPIDOGREL BISULFATE 75 MG TABLET (FP) PO SCH (09:05)
[2021-02-21] MEDS: AMINO ACIDS 4.25%/D5W 1,000 ML IV SCH (12:00)
[2021-02-21 13:19] LABS: BASO % 1.2 % (0-2.0); EOS % 0.5 % (0-4.5); HEMATOCRIT 35.1 % (32.4-45.2); HEMOGLOBIN 10.7 GM/dL (10.7-15.3); LYMPH % 3.3 % (8-40); MCH 26.1 pg (25.7-33.7); MCHC 30.6 g/dl (32.0-36.0); MEAN CELL VOLUME 85.3 fl (80-96); MEAN PLT VOLUME 7.3 fl (7.5-11.1); MONO % 7.6 % (3.8-10.2); NEUT % 87.4 % (42.8-82.8); PLATELET COUNT 269 10^3/uL (134-434); RBC 4.12 M/mm3 (3.60-5.2); RDW 19.3 % (11.6-15.6); WHITE BLOOD COUNT 11.8 K/mm3 (4.0-10.0)
[2021-02-21 13:55] LABS: CALCIUM 9.1 mg/dL (8.5-10.1)
[2021-02-21 13:56] LABS: ALBUMIN 2.2 g/dl (3.4-5.0); BLOOD UREA NITROGEN 38.3 mg/dL (7-18)
[2021-02-21 13:59] LABS: CREATININE 1.7 mg/dL (0.55-1.3)
[2021-02-21 14:01] LABS: BILIRUBIN,TOTAL 0.6 mg/dL (0.2-1); TOT PROT 6.3 g/dl (6.4-8.2)
[2021-02-21 15:38] VITALS: BMI 12.7
[2021-02-21] MEDS: MORPHINE SULFATE 2 MG/ML VIAL IVPUSH PRN (20:04)
[2021-02-21] MEDS: MIRTAZAPINE 15 MG TABLET (FP) PO SCH (21:12)
[2021-02-22] MEDS ORDERED: PIPERACILLIN/TAZOBACTAM 2.25 GM VIAL IVPB ONE ×4 (00:03→17:40)
[2021-02-22] MEDS ORDERED: DEXTROSE 5%-WATER - 50 ML IVPB ONE ×4 (00:03→17:40)
[2021-02-22] MEDS ORDERED: VANCOMYCIN 500 MG in DEXTROSE 5%-WATER - 100 ML IVPB ONE (03:00)
[2021-02-22] MEDS ORDERED: VANCOMYCIN 500 MG in DEXTROSE 5%-WATER 100 ML IVPB ONE (03:00)
[2021-02-22] MEDS: PIPERACILLIN/TAZOB 2.25 GM 2.25 GM in DEXTROSE 5%-WATER - 50 ML IVPB SCH ×4 (04:09→17:47)
[2021-02-22] MEDS: GABAPENTIN 100 MG CAPSULE PO SCH ×3 (05:38→21:12)
[2021-02-22] MEDS: INSULIN SLIDING SCALE (NOVOLOG) 1 VIAL SQ SCH ×4 (06:22→21:18)
[2021-02-22] MEDS: ALBUTEROL SO4 0.083% IH SOL 2.5 MG/3 ML VIAL.NEB. NEB PRN ×3 (07:09→19:55)
[2021-02-22] MEDS: MINERAL OIL/PET HY-PHL TOPICAL OINTMENT 454 GM JAR TP SCH (10:21)
[2021-02-22] MEDS: CLOPIDOGREL BISULFATE 75 MG TABLET (FP) PO SCH (10:21)
[2021-02-22] MEDS: AMINO ACIDS 4.25%/D5W 1,000 ML IV SCH ×2 (10:21→15:53)
[2021-02-22] MEDS: metoPROLOL SUCCINATE 25 MG TAB.SR.24H (FP) PO SCH (10:21)
[2021-02-22] MEDS ORDERED: DOCUSATE SODIUM 100 MG CAPSULE (FP) PO PRN (10:55)
[2021-02-22] MEDS ORDERED: FENTANYL PATCH WASTE TD PRN (10:55)
[2021-02-22] MEDS: fentaNYL 12mcg/hr PATCH.TD72 TD SCH (11:53)
[2021-02-22] MEDS ORDERED: PT OWN MED DRAWER 7, Y5N ONE (13:42)
[2021-02-22] MEDS: SCOPOLAMINE HYDROBROMIDE 1 PATCH PATCH.TD72 TD SCH (13:45)
[2021-02-22] MEDS: MIRTAZAPINE 15 MG TABLET (FP) PO SCH (21:12)
[2021-02-23] MEDS ORDERED: DEXTROSE 5%-WATER - 50 ML IVPB ONE ×3 (01:38→17:49)
[2021-02-23] MEDS ORDERED: PIPERACILLIN/TAZOBACTAM 2.25 GM VIAL IVPB ONE ×3 (01:38→17:49)
[2021-02-23] MEDS: PIPERACILLIN/TAZOB 2.25 GM 2.25 GM in DEXTROSE 5%-WATER - 50 ML IVPB SCH ×5 (01:44→17:58)
[2021-02-23] MEDS: MORPHINE SULFATE 2 MG/ML VIAL IVPUSH PRN (04:00)
[2021-02-23] MEDS: GABAPENTIN 100 MG CAPSULE PO SCH ×3 (06:27→21:23)
[2021-02-23] MEDS: INSULIN SLIDING SCALE (NOVOLOG) 1 VIAL SQ SCH ×4 (06:29→21:25)
[2021-02-23] MEDS ORDERED: INSULIN (NOVOLOG) ASPART 100 UNITS/ML 10ML VIAL ONE (06:31)
[2021-02-23] MEDS ORDERED: PT OWN MED DRAWER 7, Y5N ONE (10:48)
[2021-02-23] MEDS: MINERAL OIL/PET HY-PHL TOPICAL OINTMENT 454 GM JAR TP SCH (10:51)
[2021-02-23] MEDS: AMINO ACIDS 4.25%/D5W 1,000 ML IV SCH ×2 (10:51→20:21)
[2021-02-23] MEDS: ALBUTEROL SO4 0.083% IH SOL 2.5 MG/3 ML VIAL.NEB. NEB PRN (16:54)
[2021-02-23] MEDS: MIRTAZAPINE 15 MG TABLET (FP) PO SCH (21:23)
[2021-02-24] MEDS ORDERED: DEXTROSE 5%-WATER - 50 ML IVPB ONE (01:14)
[2021-02-24] MEDS ORDERED: PIPERACILLIN/TAZOBACTAM 2.25 GM VIAL IVPB ONE (01:14)
[2021-02-24] MEDS: PIPERACILLIN/TAZOB 2.25 GM 2.25 GM in DEXTROSE 5%-WATER - 50 ML IVPB SCH (01:28)
[2021-02-24] MEDS: GABAPENTIN 100 MG CAPSULE PO SCH ×3 (05:58→21:40)
[2021-02-24] MEDS: INSULIN SLIDING SCALE (NOVOLOG) 1 VIAL SQ SCH ×4 (06:02→21:41)
[2021-02-24] MEDS: ALBUTEROL SO4 0.083% IH SOL 2.5 MG/3 ML VIAL.NEB. NEB PRN (08:25)
[2021-02-24] MEDS: AMINO ACIDS 4.25%/D5W 1,000 ML IV SCH ×2 (09:55→21:39)
[2021-02-24] MEDS: MINERAL OIL/PET HY-PHL TOPICAL OINTMENT 454 GM JAR TP SCH (09:55)
[2021-02-24] MEDS ORDERED: INSULIN (NOVOLOG) ASPART 100 UNITS/ML 10ML VIAL ONE (12:08)
[2021-02-24] MEDS: MINERAL OIL 30 ML UNIT-DOSE CUP PO SCH ×2 (15:43→21:40)
[2021-02-24] MEDS: MIRTAZAPINE 15 MG TABLET (FP) PO SCH (21:41)
[2021-02-25] MEDS: GABAPENTIN 100 MG CAPSULE PO SCH ×3 (06:53→21:15)
[2021-02-25] MEDS: INSULIN SLIDING SCALE (NOVOLOG) 1 VIAL SQ SCH ×4 (06:53→21:51)
[2021-02-25] MEDS: MINERAL OIL 30 ML UNIT-DOSE CUP PO SCH ×3 (06:53→21:14)
[2021-02-25] MEDS: AMINO ACIDS 4.25%/D5W 1,000 ML IV SCH ×2 (10:18→22:36)
[2021-02-25] MEDS: MINERAL OIL/PET HY-PHL TOPICAL OINTMENT 454 GM JAR TP SCH (10:18)
[2021-02-25] MEDS: fentaNYL 12mcg/hr PATCH.TD72 TD SCH (10:21)
[2021-02-25] MEDS ORDERED: PT OWN MED DRAWER 7, Y5N ONE (11:36)
[2021-02-25] MEDS: SCOPOLAMINE HYDROBROMIDE 1 PATCH PATCH.TD72 TD SCH (11:39)
[2021-02-25] MEDS: MORPHINE SULFATE 2 MG/ML VIAL IVPUSH PRN (13:36)
[2021-02-25] MEDS: ALBUTEROL SO4 0.083% IH SOL 2.5 MG/3 ML VIAL.NEB. NEB PRN (20:10)
[2021-02-25] MEDS: MIRTAZAPINE 15 MG TABLET (FP) PO SCH (21:15)
[2021-02-26] MEDS: MINERAL OIL 30 ML UNIT-DOSE CUP PO SCH ×3 (05:30→21:33)
[2021-02-26] MEDS: GABAPENTIN 100 MG CAPSULE PO SCH ×3 (05:31→21:33)
[2021-02-26] MEDS: INSULIN SLIDING SCALE (NOVOLOG) 1 VIAL SQ SCH ×4 (06:17→21:33)
[2021-02-26] MEDS: AMINO ACIDS 4.25%/D5W 1,000 ML IV SCH ×2 (10:24→22:36)
[2021-02-26] MEDS: MINERAL OIL/PET HY-PHL TOPICAL OINTMENT 454 GM JAR TP SCH (10:27)
[2021-02-26] MEDS: MORPHINE SULFATE 2 MG/ML VIAL IVPUSH PRN ×2 (11:01→17:21)
[2021-02-26] MEDS ORDERED: PT OWN MED DRAWER 7, Y5N ONE (21:19)
[2021-02-26] MEDS: MIRTAZAPINE 15 MG TABLET (FP) PO SCH (21:33)
[2021-02-27] MEDS: MINERAL OIL 30 ML UNIT-DOSE CUP PO SCH ×3 (05:00→21:37)
[2021-02-27] MEDS: GABAPENTIN 100 MG CAPSULE PO SCH ×3 (05:00→21:38)
[2021-02-27] MEDS: INSULIN SLIDING SCALE (NOVOLOG) 1 VIAL SQ SCH ×3 (06:07→17:17)
[2021-02-27] MEDS ORDERED: INSULIN (NOVOLOG) ASPART 100 UNITS/ML 10ML VIAL ONE ×3 (06:45→11:54)
[2021-02-27] MEDS: MINERAL OIL/PET HY-PHL TOPICAL OINTMENT 454 GM JAR TP SCH (09:17)
[2021-02-27] MEDS: AMINO ACIDS 4.25%/D5W 1,000 ML IV SCH ×2 (09:17→23:25)
[2021-02-27] MEDS: MIRTAZAPINE 15 MG TABLET (FP) PO SCH (21:42)
[2021-02-28] MEDS: INSULIN SLIDING SCALE (NOVOLOG) 1 VIAL SQ SCH ×5 (04:26→23:00)
[2021-02-28] MEDS: MINERAL OIL 30 ML UNIT-DOSE CUP PO SCH ×3 (08:00→23:00)
[2021-02-28] MEDS: GABAPENTIN 100 MG CAPSULE PO SCH ×3 (08:00→21:23)
[2021-02-28] MEDS: fentaNYL 12mcg/hr PATCH.TD72 TD SCH (10:23)
[2021-02-28] MEDS: MINERAL OIL/PET HY-PHL TOPICAL OINTMENT 454 GM JAR TP SCH (10:26)
[2021-02-28] MEDS: SCOPOLAMINE HYDROBROMIDE 1 PATCH PATCH.TD72 TD SCH (10:26)
[2021-02-28] MEDS ORDERED: INSULIN (NOVOLOG) ASPART 100 UNITS/ML 10ML VIAL ONE (20:55)
[2021-02-28] MEDS: MIRTAZAPINE 15 MG TABLET (FP) PO SCH (21:23)
[2021-03-01] MEDS: GABAPENTIN 100 MG CAPSULE PO SCH ×3 (06:06→21:20)
[2021-03-01] MEDS: MINERAL OIL 30 ML UNIT-DOSE CUP PO SCH ×3 (06:06→21:20)
[2021-03-01] MEDS: INSULIN SLIDING SCALE (NOVOLOG) 1 VIAL SQ SCH (06:09)
[2021-03-01] MEDS ORDERED: PT OWN MED DRAWER 7, Y5N ONE (08:41)
[2021-03-01] MEDS: MINERAL OIL/PET HY-PHL TOPICAL OINTMENT 454 GM JAR TP SCH (09:19)
[2021-03-01 15:56] VITALS: TEMP 97.7
[2021-03-01] MEDS: MIRTAZAPINE 15 MG TABLET (FP) PO SCH (21:20)
[2021-03-01 22:15] VITALS: BP 149/62; PULSE 79
== END 2021-03-01 22:20 | disposition expired | DRG 193 ==
LOC: JER 20:35 → JERBED 02-20 00:37 → J8W 02-20 03:31
PROVIDERS: ADMIT Internal Medicine; ATTEND Family Medicine
DX: J18.9 Pneumonia, unspecified organism (principal); J96.01 Acute respiratory failure with hypoxia; G93.41 Metabolic encephalopathy; R64 Cachexia; Z68.1 Body mass index [BMI] 19.9 or less, adult; C34.90 Malignant neoplasm of unspecified part of unspecified bronchus or lung; E46 Unspecified protein-calorie malnutrition; N17.9 Acute kidney failure, unspecified; J44.9 Chronic obstructive pulmonary disease, unspecified; K21.9 Gastro-esophageal reflux disease without esophagitis; E78.00 Pure hypercholesterolemia, unspecified; F41.9 Anxiety disorder, unspecified; D53.0 Protein deficiency anemia; E87.5 Hyperkalemia; E11.51 Type 2 diabetes mellitus with diabetic peripheral angiopathy without gangrene; E11.22 Type 2 diabetes mellitus with diabetic chronic kidney disease; I12.9 Hypertensive chronic kidney disease with stage 1 through stage 4 chronic kidney disease, or unspecified chronic kidney disease; N18.9 Chronic kidney disease, unspecified
CPT/HCPCS: 36415; 70450-TC; 71045-TC-FY; 71250-TC; 80048; 80053; 81003; 82550; 82803; 82962; 83735; 83880; 84100; 84484; 85025; 85610; 85730; 87040; 87086; 93005; 93010; 94640; 99285-25; C9803; J0131; U0003; U0005